=== PATIENT | male | born 1945 | race Caucasian/White ===

== ENCOUNTER 2022-05-02 15:29 | Outpatient (CLI) | payer OTHER, SELFPAY ==
--- NOTE | 2022-05-02 15:35 | CRLHL7_ITS ---
For Patients: As a result of the Century Cures Act, medical imaging exams and procedure reports are released immediately into your electronic medical record. You may view this report before your referring provider. If you have questions, please contact your health care provider. INDICATION: Lung cancer screening. History of smoking. High risk patient with greater than 40 pack-year smoking history. Smoking cessation in 2018. TECHNIQUE: Low-dose lung cancer screening non-contrast CT chest. Dose reduction techniques were used. COMPARISON: February 04, 2020. November 01, 2019. FINDINGS: NODULES: Stable calcified subpleural granuloma left upper lobe of the lung image 37 series. 2 no new pulmonary nodules. LUNGS AND PLEURA: Marked interval improvement/near complete resolution of the peripheral reticular and ground-glass opacities described on the prior CT February 04, 2020 which were likely postinfectious or postinflammatory. Minimal residual subpleural opacities lateral right upper lobe of the lung and right lung base. MEDIASTINUM: Vascular calcification and normal caliber thoracic aorta. Calcified left hilar lymph nodes compatible with granulomatous process. CORONARY ARTERY CALCIFICATION: Present. Possible coronary artery stent as well in the left anterior descending artery. Please correlate clinically. LIMITED UPPER ABDOMEN: Small esophageal hiatal hernia. No splenomegaly. Normal adrenal glands. Subtle cholelithiasis. MUSCULOSKELETAL: Old partial compression fracture L1. IMPRESSION: Negative for lung cancer screening purposes. LUNG-RADS CATEGORY: 2: Benign. (<1% risk of malignancy) -Sparkle fissural nodule(s): <10 mm -Solid nodule(s): <6 mm on baseline screening; or new nodule <4 mm -Subsolid nodule(s): <6 mm on baseline screening -Ground glass nodule(s): <30 mm; or greater than or equal to 30 mm and unchanged or slowly growing -Category 3 or 4 nodules that are unchanged for greater than or equal to 3 months RADIOLOGIST RECOMMENDATION: Continue annual screening with low-dose CT chest in 12 months. Please note that all CT scans at this facility use dose modulation, iterative reconstruction, and/or weight-based dosing when appropriate to reduce radiation dose to as low as reasonably achievable. Dictated by Bib Bynum MD @ 05/02/2022 9:34:55 PM (Electronically Signed)
== END 2022-05-02 15:30 | disposition home or self-care (01) ==
PROVIDERS: PCP Internal Medicine
DX: Z12.2 Encounter for screening for malignant neoplasm of respiratory organs (principal); Z87.891 Personal history of nicotine dependence
CPT/HCPCS: 71271

== ENCOUNTER 2023-12-20 02:52 | Emergency (ER) | payer OTHER, SELFPAY ==
[2023-12-20 02:55] VITALS: BP 176/86; PULSE 67; RESP 20; TEMP 36.2; O2SAT 93; BMI 29.8
--- NOTE | 2023-12-20 03:03 | ED.GENADULT ---
HPI - General Adult General Chief complaint: Abdominal Pain Stated complaint: Upper right abdominal pain Time Seen by Provider: 12/20/23 03:03 History of Present Illness HPI narrative: Upper right abd pain, woke pt up from sleep. No chest pain, shortness of breath - hx of COPD. No reported falls or other trauma . 78-year-old man presenting to the emergency department with concern of upper right-sided abdominal pain that woke him from sleep. No chest pain. No fever. Not radiating to his back. Sense of palpitations. Was feeling in usual state of health yesterday. 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 Had appendectomy. No dysuria or hematuria noted. Related Data Home Medications ?Medication ?Instructions ?Recorded ?Confirmed albuterol sulfate 90 mcg/actuation 2 puff inhalation Q6H PRN 01/03/22 01/03/22 aerosol inhaler ibuprofen 200 mg tablet (Advil) 200 mg PO Q6H PRN 01/03/22 01/03/22 tiotropium bromide 2.5 2 puff inhalation QDAY 01/03/22 01/03/22 mcg/actuation mist for inhalation (Spiriva Respimat) albuterol sulfate 2.5 mg/3 mL 2.5 mg inhalation Q6H 01/08/22 (0.083 %) solution for nebulization aspirin 81 mg tablet,delayed 81 mg PO QDAY 01/08/22 release fluticasone propion-salmeterol inhalation 01/08/22 [Wixela Inhub] sennosides 8.6 mg capsule (senna) 8.6 mg PO QDAY PRN 01/08/22 tamsulosin 0.4 mg capsule 0.4 mg PO QDAY 01/08/22 Previous Rx's ?Medication ?Instructions ?Recorded prednisone 20 mg tablet 20 mg PO BID Back Pain #10 tabs 01/03/22 Allergies Allergy/AdvReac Type Severity Reaction Status Date / Time No Known Drug Allergies Allergy Verified 01/03/22 14:32 Review of Systems Status of ROS: Reports: 6 or more systems reviewed and unremarkable except as noted in History and below [facility] Medical History Back pain ?M54.9 - Dorsalgia, unspecified (ICD-10) Exam Narrative: Exam Narrative: Pleasant. Lying calmly semi recumbent in bed. Hard of hearing. Moving all extremities without difficulty. Is well-perfused. No lower extremity edema noted. Lungs with mildly diminished breath sounds. Heart in regular rate rhythm. Abdomen is full, tympanitic. Quite tender along the right side of the abdomen. I think most so in the right upper abdomen but all the way down to the right lower quadrant as well. Flinches intensely, guards, with pain to palpation. Const: Vital Signs, click to edit/add: Vital Signs - 24 hr 12/20/23 02:55 12/20/23 03:29 12/20/23 03:30 Temperature 97.2 F L Pulse Rate 61 61 Pulse Rate [Left P ulse Oximeter] 67 Respiratory Rate 20 Blood Pressure Blood Pressure [Ri ght Upper Arm] 176/86 H Pulse Oximetry 93 91 89 Oxygen Delivery Me thod Room Air 12/20/23 03:32 Temperature Pulse Rate 61 Pulse Rate [Left P ulse Oximeter] Respiratory Rate Blood Pressure 180/88 H Blood Pressure [Ri ght Upper Arm] Pulse Oximetry 89 Oxygen Delivery Me thod Documenting provider has reviewed patient's vital signs: yes Course Vital Signs Vital signs: Initial Vital Signs Temperature 97.2 F L 12/20/23 02:55 Temperature Source Temporal Artery Scan 12/20/23 02:55 Pulse Rate 67 12/20/23 02:55 Pulse Rhythm Regular 12/20/23 02:55 Respiratory Rate 20 12/20/23 02:55 Blood Pressure 176/86 H 12/20/23 02:55 Blood Pressure Mean 116 H 12/20/23 02:55 Blood Pressure Position Sitting 12/20/23 02:55 Pulse Oximetry 93 12/20/23 02:55 Oxygen Delivery Method Room Air 12/20/23 02:55 Vital Signs Temperature 97.2 F L 12/20/23 02:55 Pulse Rate 67 12/20/23 02:55 Respiratory Rate 20 12/20/23 02:55 Blood Pressure 176/86 H 12/20/23 02:55 Pulse Oximetry 93 12/20/23 02:55 Oxygen Delivery Method Room Air 12/20/23 02:55 Temperature 97.2 F L 12/20/23 02:55 Pulse Rate 61 12/20/23 03:32 Respiratory Rate 20 12/20/23 02:55 Blood Pressure 180/88 H 12/20/23 03:32 Pulse Oximetry 89 12/20/23 03:32 Oxygen Delivery Method Room Air 12/20/23 02:55 Medications Administered Medications: Discontinued Medications Generic Name Dose Route Start Last Admin Trade Name Bradley PRN Reason Stop Dose Admin Sodium Chloride 500 mls @ 500 mls/hr 12/20/23 04:32 12/20/23 06:29 0.9 % Sodium Chloride 500 Ml IV 12/20/23 05:31 Infused .Q1H ONE Infusion Ketorolac Tromethamine 30 mg 12/20/23 04:35 12/20/23 04:48 Ketorolac 30 Mg/Ml Inj IVP 12/20/23 04:36 30 mg ONCE ONE Administration Morphine Sulfate 4 mg 12/20/23 03:24 12/20/23 03:31 Morphine 4 Mg/Ml Inj IVP 12/20/23 03:25 4 mg ONCE ONE Administration Medical Decision Making MDM Narrative Medical decision making narrative: Differential includes diverticulitis, perforated viscous otherwise, dissection, gallbladder disease, hepatitis otherwise, constipation, hematoma, ureteral stone and colic. Initiating IV. Checking labs. Had he not had his appendix out I would consider immediate CT imaging. At this point would wait for direction somewhat from labs but would like to do point of care ultrasound as well just to evaluate gallbladder. I did place point of care ultrasound Mr. Loo. Appears to have some sludge in his gallbladder. While he is very tender and would suggest positive Cooper's, I do not see pericholecystic inflammatory changes nor wall thickening per se. I did review findings of limited right upper abdominal ultrasound with custodial services manager. Noting small cholelithiasis. Still with a great deal of tenderness on the abdomen right upper right lower on reexamination. Sent for abdomen pelvis contrasted CT. Did review these images personally. Unusually enhancing area of the prostate. Particularly distended urinary bladder. Placing Coles did collect more than 600 mL out. This was a coude. Probably initially with 800 mL urine out. He does now recall urinary retention sometime in the past with catheter placed. History of TURP. Radiology over-read as below TECHNIQUE: CT examination of the abdomen and pelvis was performed following the uneventful intravenous administration of 82 cc of Isovue 370. Thin section axial images were obtained from the lung bases through the pubic symphysis. Oral contrast was not administered. Please note that all CT scans at this facility use dose modulation, iterative reconstruction, and/or weight-based dosing when appropriate to reduce radiation dose to as low as reasonably achievable. FINDINGS: LUNG BASES: Reticular opacities at the lung bases likely due to interstitial fibrosis. This represents a change since December 16, 2019.Follow up evaluation is recommended in the nonacute care setting. The heart size is normal the lung bases. There is a moderate-sized hiatal hernia. LIVER/BILIARY SYSTEM:Hepatic steatosis. Simple cyst. There is cholelithiasis with most of the stones in the region of the gallbladder neck. No wall thickening, pericholecystic fluid or biliary ductal dilation noted.No visible choledocholithiasis ADRENALS: Normal KIDNEYS, URETERS and BLADDER:Kidneys are normal in size. No focal mass. Left extrarenal pelvis. The prostate is enlarged. There has been an apparent TURP. There is enhancing peripheral nodularity of the superior left aspect of the prostate. Follow-up evaluation of the prostate recommended at a clinically appropriate time. The bladder is distended SPLEEN:Normal appearance. PANCREAS: Appears normal. RETROPERITONEUM and MESENTERY: There is no mass, adenopathy or aortic aneurysm. Dense atherosclerotic vascular calcification GASTROINTESTINAL SYSTEM: There is no evidence of diverticulitis, colitis, mechanical obstruction, or appendicitis. The small bowel as visualized appears normal.Fecal retention and scattered diverticulosis. PELVIS: Abnormal prostate as mentioned above. OSSEOUS STRUCTURES and ABDOMINAL WALL: Postsurgical changes of the spine and the pelvis. Degenerative changes. Chronic wedging of a lumbar vertebral body.No significant abdominal wall abnormality. Incidental left hydrocele. OTHER: No free fluid or free air. IMPRESSION: 1. Cholelithiasis without CT evidence of acute cholecystitis or common duct obstruction. 2. Hepatic steatosis. 3. Bibasilar lung findings likely indicating a fibrosing interstitial lung disease. This represents a change since the prior study. Follow-up recommended in the nonacute setting. 4. Enlarged prostate with a peripheral enhancing area in the superolateral prostate for which follow-up evaluation is recommended in the nonacute care setting. 5. Other nonacute appearing findings as above Will discuss catheter management. Discussed findings in CT imaging and ultrasound imaging. And with cholelithiasis as well as this unusual enhancement in the prostate that will require some follow-up. See patient discharge plan for further discussion Medical Records Medical records reviewed: Yes I reviewed the patient's medical records Lab Data Lab results reviewed: Yes I reviewed the patient's lab results Labs: Lab Results 12/20/23 12/20/23 Range/Units 03:15 Unknown WBC 7.06 (4.50-11.00) K/uL RBC 4.64 (4.30-5.90) m/uL Hgb 15.4 (13.5-17.5) gm/dL Hct 44.9 (37.0-53.0) % MCV 97 (80-100) fL MCH 33 (26-34) pg MCHC 34 (32-36) gm/dL RDW Coeff of Zena 11.4 L (11.5-15.5) % Plt Count 181 (140-440) K/uL Neut % (Auto) 72.6 H (42.0-72.0) % Lymph % (Auto) 13.7 L (20-44) % Clark % (Auto) 10.8 (0.0-11.0) % Eos % (Auto) 2.3 (0.0-7.0) % Baso % (Auto) 0.3 (0.0-3.0) % Neut # (Auto) 5.10 (1.7-7.0) K/uL Lymph # (Auto) 1.00 (0.90-2.90) K/uL Clark # (Auto) 0.80 (0.00-0.90) K/UL Eos # (Auto) 0.16 (0.00-0.50) K/uL Baso # (Auto) 0.02 (0.00-0.30) K/uL Abs Immat Gran (auto) 0.02 (0.00-0.30) K/uL Imm/Tot Granulo (auto) 0.3 % D-Dimer Quant (PE/DVT) 0.32 (0.00-0.50) ug/ml Sodium 132 L (135-149) mmol/L Potassium 4.4 (3.6-5.1) mmol/L Chloride 97 (96-114) mmol/L Carbon Dioxide 29 (20-32) mmol/L Anion Gap 6 L (7-15) mEq/L BUN 16 (7-30) mg/dL Creatinine 1.0 (0.5-1.5) mg/dL Estimated Creat Clear 49.79 Estimated GFR 78 ml/min Glucose 123 H (60-115) mg/dL Calcium 9.6 (8.4-10.6) mg/dL Total Bilirubin 0.8 (0.1-1.5) mg/dL Direct Bilirubin 0.1 (0.0-0.5) mg/dL AST 38 H (12-35) U/L ALT 36 (4-50) U/L Alkaline Phosphatase 65 (40-150) U/L C-Reactive Protein < 0.5 L (0.5-1.0) mg/dL Total Protein 7.2 (6.0-8.3) g/dL Albumin 4.5 (3.3-5.0) g/dL Urine Color Yellow (Yellow) Urine Appearance Clear (Clear) Urine pH 7.5 (5.0-8.5) Ur Specific [place] 1.020 (1.000-1.030) Urine Protein Negative (Negative) Urine Glucose (UA) Negative (Negative) Urine Ketones Negative (Negative) Urine Blood Negative (Negative) Urine Nitrite Negative (Negative) Urine Bilirubin Negative (Negative) Urine Urobilinogen 0.2 (0.2-1.0) Ur Leukocyte Esterase Trace A (Negative) Urine RBC 0-2 (0-2) Urine WBC 0-2 (0-5) Ur Squamous Epith Cells Few (None-Few) Amorphous Sediment Many A (None) Urine Bacteria Few A (None) Fine Granular Casts Moderate A (None) Discharge Plan Discharge Clinical Impression: Acute urinary retention, Abdominal pain, Cholelithiasis, Pulmonary fibrosis Patient Disposition: Home w/ Parent or Adult Condition: Improved Additional Instructions: A pleasure to meet you. I would keep this Coles in until follow-up in clinic. Please call 1st thing Friday morning for an appointment on Friday or Friday. There are some changes in your prostate that need follow-up. Please discuss in your primary care clinic. Be sure that your treatment for your lungs is being optimized as well. Fibrosis is evident on CT. Prescriptions: No Action Spiriva Respimat 2.5 mcg/actuation mist 2 puff inhalation QDAY albuterol sulfate 90 mcg/actuation HFA aerosol inhaler 2 puff inhalation Q6H PRN ibuprofen [Advil] 200 mg tablet 200 mg PO Q6H PRN prednisone 20 mg tablet 20 mg PO BID Qty: 10 0RF tamsulosin 0.4 mg capsule 0.4 mg PO QDAY senna 8.6 mg capsule 8.6 mg PO QDAY PRN albuterol sulfate 2.5 mg /3 mL (0.083 %) solution for nebulization 2.5 mg inhalation Q6H aspirin 81 mg tablet,delayed release (DR/EC) 81 mg PO QDAY fluticasone propion-salmeterol [Wixela Inhub] inhalation Follow Up/Referrals: Orlando Ramos MD [Staff Physician] - Stand Alone Forms: [employer] Twitter Dashboard Info Instructions
[2023-12-20 03:20] LABS: Basophils Absolute Auto 0.02 K/uL (0.00-0.30); Basophils Percent Auto 0.3 % (0.0-3.0); Eosinophils Absolute Auto 0.16 K/uL (0.00-0.50); Eosinophils Percent Auto 2.3 % (0.0-7.0); Hematocrit 44.9 % (37.0-53.0); Hemoglobin* 15.4 gm/dL (13.5-17.5); Immature Granulocytes Abs Auto 0.02 K/uL (0.00-0.30); Immature Granulocytes Pct Auto 0.3 %; Lymphocytes Percent Auto 13.7 % (20-44); Mean Corpuscular HGB Conc 34 gm/dL (32-36); Mean Corpuscular Hemoglobin 33 pg (26-34); Mean Corpuscular Volume 97 fL (80-100); Monocytes Percent Auto 10.8 % (0.0-11.0); Neutrophils Percent Auto 72.6 % (42.0-72.0); Platelet Count* 181 K/uL (140-440); RDW Coefficient of Variation % 11.4 % (11.5-15.5); Red Blood Count 4.64 m/uL (4.30-5.90); White Blood Count* 7.06 K/uL (4.50-11.00)
[2023-12-20 03:25] LABS: Slide Review Reflex No
[2023-12-20 03:29] VITALS: PULSE 61; O2SAT 91
[2023-12-20 03:30] VITALS: PULSE 61; O2SAT 89
[2023-12-20] MEDS: MORPHINE 4 MG/ML INJ IVP (03:31)
[2023-12-20 03:32] VITALS: BP 180/88; PULSE 61; O2SAT 89
[2023-12-20 03:37] LABS: Chloride* 97 mmol/L (96-114); Sodium* 132 mmol/L (135-149)
[2023-12-20 03:38] LABS: Albumin* 4.5 g/dL (3.3-5.0); Potassium* 4.4 mmol/L (3.6-5.1)
[2023-12-20 03:41] LABS: Alanine Aminotransferase* 36 U/L (4-50); Alkaline Phosphatase* 65 U/L (40-150); Anion Gap 6 mEq/L (7-15); Aspartate Amino Transferase* 38 U/L (12-35); Bilirubin Direct* 0.1 mg/dL (0.0-0.5); Bilirubin Total* 0.8 mg/dL (0.1-1.5); Blood Urea Nitrogen* 16 mg/dL (7-30); Carbon Dioxide* 29 mmol/L (20-32); Est. Creatinine Clearance* 49.79; Estimated Glomerular Filt Rate 78 ml/min; Glucose* 123 mg/dL (60-115); Total Protein* 7.2 g/dL (6.0-8.3)
[2023-12-20 03:42] LABS: Calcium* 9.6 mg/dL (8.4-10.6); D Dimer Quantitative* 0.32 ug/ml (0.00-0.50)
[2023-12-20 03:44] LABS: C Reactive Protein* < 0.5 mg/dL (0.5-1.0)
--- OUTSIDE RECORDS SUMMARY | 2023-12-20 03:49 | XMS_ITS | Encounter Summary ---
Author Name [facility] [facility] [place] Address [address] [place] [address] Care Team Providers Care Staff Anesthetist Name Role Phone AMELIA VILLALPANDO Primary Care Provider Unavailabl e Insurance Providers: All historical and current Section Date Range: From patient's date of to the date document was created. This section includes the names of all active insurance providers for the patient. Insurance Provider Type of Coverage Plan Name Start of Policy Coverage End of Policy Coverage Group Number Member ID Insurance Provider's Telephone Number Policy Serrato's Name Patient's Relationship to Policy Serrato [employer] PLAN N MEDIC ARE SUPPL EMENT Mar 03, 2015 PLAN N [id number] [phone] RADHA SIMON PATIENT MEDICARE (WNR) MEDICARE (M) PART B Mar 03, 2015 PART B [id number] RADHA SIMON PATIENT MEDICARE (WNR) MEDICARE (M) PART A Jan 01, 2011 PART A [id number] [phone] RADHA SIMON PATIENT Selected Encounter This section includes the information on record at [place] for the Encounter. Date/Time Encounter Type Encounter Description Reason Provider Source Jun 12, 2023 07:58 AM Outpatient Encounter ADMIN PAT ACTIVTIES (MASNONCT) AMELIA VILLALPANDO Aki Encounter Template Text not used by [place] Plan of Treatment: Future Appointments (+ 6 months) and Future Tests (+/- 45 days) The Plan of Treatment section includes future care activities for the patient from all [place] [facility]. This section includes future appointments and future orders which are active, pending or scheduled. Future Appointments This section includes appointments that were scheduled to occur 6 months from the date of the Encounter, up to a maximum of 20 appointments. The data comes from all [facility]. Appointment Date/Time Appointment Type Appointme nt Facility Name Jun 25, 2023 11:30 AM [facility]BULATORY - [facility]ICINE [facility] Jun 25, 2023 01:15 PM [facility] - [facility]IC[facility] July 02, 2023 10:00 AM AMBULATORY [place] SURGERY [place] [facility] Sep 25, 2023 07:00 AM AMBULATORY - NONE [place] [facility] Oct 09, 2023 10:30 AM [facility]ORY - MEDICINE [facility] ([facility]) Oct 30, 2023 02:30 PM AMBULATORY - NONE [facility]) Nov 13, 2023 10:30 AM AMBULATORY - NONE [facility]) Active, Pending, and Scheduled Orders This section includes a listing of several types of active, pending, and scheduled orders, including clinic medications orders, diagnostic test orders, procedure orders and consult orders; where the start date of the order is 45 days before the date of the Encounter or 45 days after the date of theEncounter. The data comes from all [facility]. Test Date/Time Test Type Test Details Facility Name July 07, 2023 02:49 PM Consult Order COMM[facility]ITY [facility]ARE-DERMATOLOGY Cons Performance Specialist's Choice [facility] Radiology Reports: +/- 30 days of the encounter Radiology Reports For cases when an order for radiology services may have been completed prior to the date of the Encounter, the report list includes the Radiology Reports that were completed up to 30 days before dateof the Encounter. For cases when an order for radiology services may have been completed after the date of the Encounter, the report list also includes the Radiology Reports that were completed up to30 days after date of the Encounter. The data comes from all [facility]. Date/Time Radiology Report Provider Source Jun 11, 2023 12:14 PM LDCT LUNG CANCER S CREENING: SIMONANGELINEH [id number] -[id number] M Exm Date: JUN 11, 2023@12:14 Req Phys: AMELIA VILLALPANDO K Pat Loc: [facility] PULM CHART CHECK [facility] (Req' Img Loc: CT IMAGING Service: Unknown (Case [id number] COMPLETE) LDCT LUNG CANCER SCREENING (CT Detailed) CPT:26145 Reason for Study: LDCT for Lung Cancer Screening (INITIAL) Clinical History: [place] IS NOT under investigation for COVID-19 or is COVID-19 negative LDCT for Lung Cancer Screening (INITIAL) Please note that had LDCT @ [place] 05/02/22 Lung RADS: 2 BENIGN Responsible provider name and phone number to notify for critical findings if other than user placing the order and pager listed below: User placing orders pager: LAST 3: Collection DT Specimen Test Name Result Units Ref Range 10/22/2022 11:07 PLASMA CREATININE 0.9 mg/dL 0.7 - 1.2 10/11/2021 11:18 PLASMA CREATININE 0.9 mg/dL 0.7 - 1.2 10/08/2018 10:53 PLASMA!! CREATININE 0.9 mg/dL 0.7 - 1.2 10/22/2022 11:07 PLASMA .CREAT EGFR(CKD-E 89 Ref: >=60 10/11/2021 11:18 PLASMA .CREAT EGFR(CKD-E 89 Ref: >=60 !! Indicates COMMENTS AVAILABLE...Refer to Interim Lab Report. Allergies: Patient has answered NKA Report Status: Verified Date Reported: JUN 11, 2023 Date Verified: JUN 11, 2023 Fitness Services Manager E-Sig:/ES/EDDIE ROBB MD Report: EXAM: LDCT LUNG CANCER SCREENING COMPARISON: 05/02/2022 PROTOCOL: Screening protocol, low dose, non-contrast CT chest was performed in accordance with Lung-Rads 2022. Additional coronal and sagittal reconstructions. MIP reconstructions were reviewed. Secondary computer-aided detection post-processing used. DOSE PARAMETERS: DLP: 57.79, mGy.cm/CTDIvol Mean: 1.58, mGy INDEX NODULE: Location: Left Upper Lobe Series: 3 Image: 74 Density: Solid Solid diameter (average): 2 mm Other characteristics: None Change: No significant change in size from 05/02/2022 Comments: Multiple adjacent calcified pulmonary granulomas. OTHER NODULES: Additional small solid pulmonary nodules do not appear significantly changed from prior such as a 2 mm solid subpleural nodule in the left upper lobe on series 3 image 38 OTHER-INCIDENTAL FINDINGS: Mild pulmonary emphysema. Reticular fibrotic changes, mid basilar predominant greatest in the right lower lobe such as on series 3 image 167, these have not significantly progressed from 05/02/2022. Calcification in the right lobe of the thyroid on series 2 image 29, not significantly changed from prior examination. Calcified left hilar node. Coronary arterial calcifications and suspected stenting. Thoracic aortic and great vessel calcification. Small sliding-type hiatal hernia. Prominent mediastinal lymph nodes are not significantly changed from prior examination. Suspected chronic area of fat necrosis near the right anterior hemidiaphragm on series 2 image 369, this is not significantly changed from previous. Low-attenuation suspected hepatic cyst on series 2 image 494. Cholelithiasis. Vascular calcifications of the upper abdomen. Rounded partially rim calcified structure in the right abdomen on series 2 image 603 measuring 1 cm, this does not appear significantly changed from 05/02/2022. Mild bilateral gynecomastia. Compression deformities of the T5 and L1 vertebral bodies, not significantly changed from 05/02/2022. Degenerative changes of the spine. Small chronic subcutaneous calcification in the left posterior thoracic region on series 3 image 158. Impression: LUNG-RADS: 2: Benign RECOMMENDATION: One year follow-up low dose CT, if patient meets screening criteria. SIGNIFICANT INCIDENTAL FINDING (S CODE): S OTHER SIGNIFICANT FINDINGS AND RECOMMENDATIONS: Combined pulmonary fibrosis and emphysema, not significantly progressed from 05/02/2022. 1 cm rounded structure in the right abdominal mesentery with peripheral calcification, potentially a small arterial aneurysm, this is similar to 05/02/2022, further assessment with abdominal CTA is recommended. Primary Interpreting Staff: EDDIE ROBB MD, RADIOLOGIST (Fitness Services Manager) /EDDIE WOODARD [facility] Pathology Reports: +/- 30 days of the encounter Pathology Reports For cases when an order for pathology services may have been completed prior to the date of the Encounter, the report list includes the Pathology Reports that were completed up to 30 days before dateof the Encounter. For cases when an order for pathology services may have been completed after the date of the Encounter, the report list also includes the Pathology Reports that were completed up to30 days after date of the Encounter. The data comes from all [place] treatment facilities. Date/Time Pathology Report Provider Source July 07, 2023 10:13 AM LR SURGICAL PATHOL OGY REPORT: LOCAL TITLE: LR SURGICAL PATHOLOGY REPORT STANDARD TITLE: PATHOLOGY REPORT DATE OF NOTE: JULY 07, 2023@10:13:56 ENTRY DATE: JULY 07, 2023@10:13:56 AUTHOR: KAYCEE KARIMI EXP COSIGNER: URGENCY: STATUS: COMPLETED $APHDR Reporting Lab: [facility] [CLIA# [id number]] [place] [address] - - - - - - - - - - - - - - - - - - - - - - - - - - - - - - - - - - - - - - - - MEDICAL RECORD SURGICAL PATHOLOGY - - - - - - - - - - - - - - - - - - - - - - - - - - - - - - - - - - - - - - - - PATHOLOGY REPORT Accession No. [id number] - - - - - - - - - - - - - - - - - - - - - - - - - - - - - - - - - - - - - - - - $TEXT Submitted by: KENTON MIJARES Date obtained: July 02, 2023 - - - - - - - - - - - - - - - - - - - - - - - - - - - - - - - - - - - - - - - - Specimen (Received July 02, 2023 11:45): RT.PARIETAL SCALP SHAVE - - - - - - - - - - - - - - - - - - - - - - - - - - - - - - - - - - - - - - - - BRIEF CLINICAL HISTORY: Procedure: shave biopsy - - - - - - - - - - - - - - - - - - - - - - - - - - - - - - - - - - - - - - - - PREOPERATIVE DIAGNOSIS: R/O nBCC - - - - - - - - - - - - - - - - - - - - - - - - - - - - - - - - - - - - - - - - OPERATIVE FINDINGS: - - - - - - - - - - - - - - - - - - - - - - - - - - - - - - - - - - - - - - - - POSTOPERATIVE DIAGNOSIS: Surgeon/physician: KENTON MIJARES =-=-=-=-=-=-=-=-=-=-=-=-=-=-=- =-=-=-=-=-=-=-=-=-=-=-=-=-=-=- =-=-=-=-=-=-=-=-=-= - - - - - - - - - - - - - - - - - - - - - - - - - - - - - - - - - - - - - - - - PATHOLOGY REPORT Accession No. [id number] - - - - - - - - - - - - - - - - - - - - - - - - - - - - - - - - - - - - - - - - GROSS DESCRIPTION: The requisition form and specimen(s) identification is confirmed. The specimen is received in formalin labeled as right parietal scalp and consists of a shave biopsy of a pearlescent levy nodule measuring 1.4 x 1.1 x 0.3 cm. The specimen is inked. CE. (D)[facility] [place] MICROSCOPIC DESCRIPTION: Microscopic examination performed. 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 in the shave biopsy /es/ KAYCEE KARIMI MD STAFF PATHOLOGIST, PATHOLOGY & LABORATORY [facility] [place] Signed July 07, 2023@10:13 Performing Laboratory: Surgical Pathology Report Performed By: [facility] [CLIA# [id number]] [place] [address] $FTR - - - - - - - - - - - - - - - - - - - - - - - - - - - - - - - - - - - - - - - - (End of report) KAYCEE KARIMI MD dla Date July 07, 2023 - - - - - - - - - - - - - - - - - - - - - - - - - - - - - - - - - - - - - - - - RADHA SIMON STANDARD FORM 515 ID:[id number] SEX:M :1945 AGE: 78 LOC:1068 PCP: Amelia Villalpando /alma/ KAYCEE KARIMI MD STAFF PATHOLOGIST, PATHOLOGY & LABORATORY [facility] [place] Signed: 07/07/2023 10:13 KAYCEE KARIMI [facility] Encounter Notes: All associated encounter notes This section contains the clinical notes associated to the Encounter. Date/Time Encounter Note(s) Provider Source Jun 12, 2023 08:06 AM LETTERS: LOCAL TITLE: FOLLOW UP RESULTS LETTER STANDARD TITLE: LETTERS DATE OF NOTE: JUN 12, 2023@08:06 ENTRY DATE: JUN 12, 2023@08:06:09 AUTHOR: PHILIP CAMERON EXP COSIGNER: URGENCY: STATUS: COMPLETED [facility] [address] [place] [address] Jun RADHA SIMON [address] [place] [address] [place] [address] Dear [place]: Your recent chest imaging on Jun showed: no lung nodules that require further follow up at this time. You may now return to the routine lung cancer screening program. If you still meet criteria for screening, your PCP will let you know when it is time to be screened again. This is usually about a year from your last screening chest CT. Your scan contained additional findings NOT related to lung nodules. Please discuss with your PCP, who has been notified of these results. Your primary care provider can be reached by calling [phone] or [phone]. If you are scheduled for a scan in the future and you have symptoms of a chest cold at that time, please call number on appointment letter to reschedule for four weeks after symptoms improve. If you have any further questions or problems, please contact Lung Cancer Screening staff at [phone]. PHILIP CAMERON vice president fixed income PHILIP CAMERON [facility] Jun 12, 2023 08:05 AM ADDENDUM: LOCAL TITLE: Addendum STANDARD TITLE: ADDENDUM DATE OF NOTE: JUN 12, 2023@08:05:03 ENTRY DATE: JUN 12, 2023@08:05:04 AUTHOR: PHILIP CAMERON EXP COSIGNER: URGENCY: STATUS: COMPLETED CT image related to nodule tracking or lung cancer screening was done on Jun Patient has been informed about findings related to lung nodules/lung cancer screening and/or pulmonary lymphadenopathy. PCP ALERT Pulmonary is notifying you as Primary Care Provider (PCP) of incidental findings unrelated to lung nodules or lung cancer screening. Per agreement with General Internal Medicine, PCP is responsible for following up incidental findings as needed. Incidental findings include (but not limited to); inflammatory/infectious LUNG conditions, pleural effusions, aneurysms, and other non-pulmonary findings. Patient has NOT been informed of the findings that are unrelated to the lung nodules or lung cancer screening. We defer to the PCP to inform the patient as indicated. Provider alert - Please see significant incidental findings and recommendation Impression: LUNG-RADS: 2: Benign RECOMMENDATION: One year follow-up low dose CT, if patient meets screening criteria. SIGNIFICANT INCIDENTAL FINDING (S CODE): S OTHER SIGNIFICANT FINDINGS AND RECOMMENDATIONS: Combined pulmonary fibrosis and emphysema, not significantly progressed from 05/02/2022. 1 cm rounded structure in the right abdominal mesentery with peripheral calcification, potentially a small arterial aneurysm, this is similar to 05/02/2022, further assessment with abdominal CTA is recommended. /es/ PHILIP CAMERON RN Case Manager Signed: 06/12/2023 08:05 Receipt Acknowledged By: 06/12/2023 14:09 /es/ AMELIA VILLALPANDO MD PHYSICIAN --- Original Document --- 06/12/23 PULMONARY LUNG CANCER SCREENING: NO LUNG NODULES or TRACKING OF NODULE NOT INDICATED per guidelines (e.g., clearly benign/some small nodules). Date of image: Date: June 11, 2023 LDCT Scan Results: Most recent LDCT scan shows a nodule for which tracking is not indicated per guidelines or radiology report. The following incidental findings were noted: Suggestive of lung infection, inflammation, or interstitial process. Comment: Combined pulmonary fibrosis and emphysema, not significantly progressed from 05/02/2022. Other: 1 cm rounded structure in the right abdominal mesentery with peripheral calcification, potentially a small arterial aneurysm, this is similar to 05/02/2022, further assessment with abdominal CTA is recommended. I am notifying the Primary Care Provider for information, and for follow-up of incidental findings, if indicated. Plan: Continue routine annual lung cancer screening. Patient Notification of results: Results letter sent to patient. Communicated to Primary Care Provider. /jarek CAMERON RN Case Manager Signed: 06/12/2023 08:04 PHILIP CAMERON [facility] Jun 12, 2023 07:59 AM PULMONARY NOTE: LOCAL TITLE: PULMONARY LUNG CANCER SCREENING STANDARD TITLE: PULMONARY NOTE DATE OF NOTE: JUN 12, 2023@07:59 ENTRY DATE: JUN 12, 2023@07:59:19 AUTHOR: PHILIP CAMERON EXP COSIGNER: URGENCY: STATUS: COMPLETED PULMONARY LUNG CANCER SCREENING Has ADDENDA NO LUNG NODULES or TRACKING OF NODULE NOT INDICATED per guidelines (e.g., clearly benign/some small nodules). Date of image: Date: June 11, 2023 LDCT Scan Results: Most recent LDCT scan shows a nodule for which tracking is not indicated per guidelines or radiology report. The following incidental findings were noted: Suggestive of lung infection, inflammation, or interstitial process. Comment: Combined pulmonary fibrosis and emphysema, not significantly progressed from 05/02/2022. Other: 1 cm rounded structure in the right abdominal mesentery with peripheral calcification, potentially a small arterial aneurysm, this is similar to 05/02/2022, further assessment with abdominal CTA is recommended. I am notifying the Primary Care Provider for information, and for follow-up of incidental findings, if indicated. Plan: Continue routine annual lung cancer screening. Patient Notification of results: Results letter sent to patient. Communicated to Primary Care Provider. /alma/ PHILIP CAMERON RN Case Manager Signed: 06/12/2023 08:04 06/12/2023 ADDENDUM STATUS: COMPLETED CT image related to nodule tracking or lung cancer screening was done on Jun Patient has been informed about findings related to lung nodules/lung cancer screening and/or pulmonary lymphadenopathy. PCP ALERT Pulmonary is notifying you as Primary Care Provider (PCP) of incidental findings unrelated to lung nodules or lung cancer screening. Per agreement with General Internal Medicine, PCP is responsible for following up incidental findings as needed. Incidental findings include (but not limited to); inflammatory/infectious LUNG conditions, pleural effusions, aneurysms, and other non-pulmonary findings. Patient has NOT been informed of the findings that are unrelated to the lung nodules or lung cancer screening. We defer to the PCP to inform the patient as indicated. Provider alert - Please see significant incidental findings and recommendation Impression: LUNG-RADS: 2: Benign RECOMMENDATION: One year follow-up low dose CT, if patient meets screening criteria. SIGNIFICANT INCIDENTAL FINDING (S CODE): S OTHER SIGNIFICANT FINDINGS AND RECOMMENDATIONS: Combined pulmonary fibrosis and emphysema, not significantly progressed from 05/02/2022. 1 cm rounded structure in the right abdominal mesentery with peripheral calcification, potentially a small arterial aneurysm, this is similar to 05/02/2022, further assessment with abdominal CTA is recommended. /alma/ PHILIP CAMERON vice president fixed income Signed: 06/12/2023 08:05 Receipt Acknowledged By: * AWAITING SIGNATURE * AMELIA VILLALPANDO KATE S [facility]
--- OUTSIDE RECORDS SUMMARY | 2023-12-20 03:49 | XMS_ITS | Encounter Summary ---
Author Name [facility] [place] [facility] [place] [facility] [place] Address [address] [place] [address] Care Team Providers Care Warp Coiler Name Role Phone AMELIA VILLALPANDO Primary Care [...] SUPPL EMENT Mar 03, 2015 PLAN N [id number] [phone] RADHA SIMON PATIENT MEDICARE (WNR) MEDICARE (M) PART B Mar 03, 2015 PART B [id number] RADHA SIMON PATIENT MEDICARE (WNR) MEDICARE (M) PART A Jan 01, 2011 PART A [id number] RADHA SIMON PATIENT Selected Encounter This section includes the information on record at [place] for the Encounter. Date/Time Encounter Type Encounter Description Reason Provider Source July 02, 2023 10:00 AM OFFICE O/P EST MOD 30 MIN DERMATOLOGY ICD-10-CM D48.5 Neoplasm of uncertain behavior of skin SOUTOR,WILLIE A IHE Encounter Template Text not used by [facility] Assessments - Encounter Diagnoses This section includes the primary and secondary diagnoses documented for the Encounter. Date/Time Primary/Secondary Diagnosis Diagnosis Name Provider Source July 02, 2023 09:44 AM PRIMARY Neoplasm of uncertain behavior of skin KENTON MIJARES [facility] Plan of Treatment: Future Appointments (+ 6 months) and Future Tests (+/- 45 days) The Plan of Treatment section includes future care activities for the patient from all [place] treatmentfacilities. This section includes future appointments and future orders which are active, pending or scheduled. Future Appointments This section includes appointments that were scheduled to occur 6 months from the date of the Encounter, up to a maximum of 20 appointments. The data comes from all [facility]. Appointment Date/Time Appointment Type Appointme nt Facility Name Sep 25, 2023 07:00 AM AMBULATORY - NONE [place] [facility] Oct 09, 2023 10:30 AM AMBULATORY [...] of theEncounter. The data comes from all [facility]. Test Date/Time Test Type Test Details Facility Name July 07, 2023 02:49 PM Consult Order COMMUNITY CARE-DERMATOLOGY Cons [employer] Advisor's Choice [facility] Radiology Reports: +/- 30 days of the [...] the Encounter. The data comes from all [facility]. Date/Time Radiology Report Provider Source Jun 11, 2023 12:14 PM LDCT LUNG CANCER S CREENING: RADHA SIMON [id number] -1945 M Exm Date: JUN 11, 2023@12:14 Req Phys: CLARI VILLALPANDOAquiles Osman Loc: [facility] PULM CHART CHECK LCS (Req' Img Loc: CT IMAGING Service: Unknown (Case [id number] COMPLETE) LDCT LUNG CANCER SCREENING (CT Detailed) CPT:86862 Reason for Study: LDCT for Lung Cancer Screening (INITIAL) Clinical History: IS NOT under investigation for COVID-19 or is COVID-19 negative LDCT for Lung Cancer Screening (INITIAL) Please note that had LDCT @ [place] 05/02/22 Lung RADS: 2 BENIGN Responsible provider [...] 11, 2023 Date Verified: JUN 11, 2023 Distributor Of Directories E-Sig:/ES/EDDIE ROBB MD Report: EXAM: LDCT LUNG CANCER SCREENING COMPARISON: 05/02/2022 PROTOCOL: Screening protocol, low dose, non-contrast CT chest was performed in accordance with Lung-Rads 2021. Additional coronal and sagittal reconstructions. MIP reconstructions [...] Primary Interpreting Staff: EDDIE ROBB MD, RADIOLOGIST (Distributor Of Directories) /EDDIE WOODARD [facility] Pathology Reports: +/- 30 days of the [...] the Encounter. The data comes from all [place] treatment facilities. Date/Time Pathology Report Provider Source July 07, 2023 10:13 AM LR SURGICAL PATHOL OGY REPORT: LOCAL TITLE: LR SURGICAL PATHOLOGY REPORT STANDARD TITLE: PATHOLOGY REPORT DATE OF NOTE: JULY 07, 2023@10:13:56 ENTRY DATE: JULY 07, 2023@10:13:56 AUTHOR: KAYCEE KARIMI EXP COSIGNER: URGENCY: STATUS: COMPLETED $APHDR Reporting Lab: [facility] [CLIA# [id number]] [place] [address] - - - - - - - [...] 0.3 cm. The specimen is inked. CE. (D[facility]: Microscopic examination performed. 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 in the shave biopsy /es/ KAYCEE KARIMI MD STAFF PATHOLOGIST, PATHOLOGY & LABORATORY MED [facility] Signed July 07, 2023@10:13 Performing Laboratory: Surgical Pathology Report Performed By: [facility] [CLIA# [id number]] [place] [address] $FTR - - - - - - [...] - - RADHA SIMON STANDARD FORM 515 ID:[id number] SEX:M :1945 AGE: 78 LOC:1068 PCP: Amelia Villalpando /alma/ KAYCEE KARIMI MD STAFF PATHOLOGIST, PATHOLOGY & LABORATORY MED [facility] Signed: 07/07/2023 10:13 KAYCEE KARIMI [facility] Encounter Notes: All associated encounter notes This section contains the clinical notes associated to the Encounter. Date/Time Encounter Note(s) Provider Source July 02, 2023 09:52 AM DERMATOLOGY LIYAH Lindsey OUTPATIENT NOTE: LOCAL TITLE: DERMATOLOGY CLINIC NURSING NOTE STANDARD TITLE: DERMATOLOGY NURSING OUTPATIENT NOTE DATE OF NOTE: JULY 02, 2023@09:52 ENTRY DATE: JULY 02, 2023@09:52:54 AUTHOR: LOGAN GODWIN EXP COSIGNER: URGENCY: STATUS: COMPLETED Dermatology Clinic Nursing Note Post Procedure Nursing Note Patient denied allergy to lidocaine or epinephrine. Vaseline and a band-aid was applied to the biopsy site on the R Parietal Scalp This bandage should be kept clean and dry for 1 day. After 1 day the bandage can be removed and the biopsy site should be gently cleaned once per day with mild soap and water, pat dry, then covered with vaseline and a new bandage. Daily cleaning and dressing changes should be done until the skin is fully healed. No other products should be used on the biopsy site i.e., hydrogen peroxide, rubbing alcohol, skin oils, creams, prescriptions until the area is completely healed. Educational Screening: Barriers to Learning/Special Needs: No Barriers Identified Preferred Style of Learning: No preference stated Teaching Strategy: 1:1 Written/printed material Instruction: Patient/family/caregiver instructed in standard Post-Biopsy wound care Printed instruction sheet provided for home reference: Skin Biopsy Patient Instruction, Understanding: Patient/family/caregiver: Able to verbalize understanding. Follow up teaching: None needed /alma/ Logan Godwin LPN LPN, Outpatient Surgery [facility] Signed: 07/02/2023 09:55 Receipt Acknowledged By: 07/02/2023 11:27 /alma/ LOGAN STATON LPN [facility] July 02, 2023 09:23 AM DERMATOLOGY ATTEND ING NOTE: LOCAL TITLE: DERMATOLOGY CLINIC NOTE STANDARD TITLE: DERMATOLOGY ATTENDING NOTE DATE OF NOTE: JULY 02, 2023@09:23 ENTRY DATE: JULY 02, 2023@09:23:28 AUTHOR: KENTON MIJARES EXP COSIGNER: URGENCY: STATUS: COMPLETED Clinic note Dr. Urena saw and evaluated the patient with me, and agrees with the findings,assessment and plan as outlined. Clinic Note Dermatology Problem List: UBSE 07/02/2023 # NUB - R Parietal Scalp s/p shave bx 07/02/2023 # Hx of NMSC (per patient) SUBJECTIVE: RADHA SIMON is a 78 year old MALE who presents today for skin check and teledermatology follow up. - Patient notes that the spot on his scalp started about two weeks ago - Never bleeds and never is itchy but will get caught on his comb and it is bothersome. - Has notes that he has a history of N[facility] ([facility] of the [facility]) EXAM: pink papule at scalp with tortuous vasculature IMPRESSION BASED ON IMAGES AND INFORMATION REVIEWED: PROBLEM A: Diagnosis: Neoplasm uncertain behavior RECOMMENDATIONS FOR REFERRING PROVIDER: PROBLEM A: Other recommendations: refer to dermatology RECOMMENDED FOLLOW-UP: Consult to Dermatology clinic for follow up ZITA: Aug Cumulative time of review and management: 5 minutes or more # # # # # # # # # # # # # # # # # # # # # # # # # # # # # # # # # # # # Diagnosis: unable to diagnose with photos alone Treatment: to be determined in dermatology clinic Follow up: dermatology will call you in 2 weeks to schedule a visit Review of systems: CONST: Otherwise in baseline state of health. SKIN: As above in HPI, no additional skin concerns. OBJECTIVE: GEN: No acute distress. SKIN: UBSE (head/neck, trunk, arms, hands/fingernails) - R pariteal scalp with shiny dome shaped papule with arborizing vessels noted under dermoscopy - On the trunk and extremities, there are flesh-colored to light brown, waxy, stuck on papules and plaques. - On the trunk and extremities with accentuation in sun-exposed areas, there are light brown macules with uniform appearance. - On trunk and extremities, there are firm red papules ASSESSMENT & PLAN: # NUB - R Parietal Scalp s/p shave biopsy 07/02/2023 - SHAVE BIOPSY PROCEDURE NOTE: A time-out was taken prior to the procedure to verify correct patient, correct site and correct procedure. After verifying patient's identification and obtaining informed consent, including discussions of the risks of bleeding,infection, and scarring,the lesion was cleansed with an alcohol swab then injected with 1.0 cc of 1% lidocaine with epinephrine. A Caribou blade was used to shave the lesion. Specimen was labeled and sent to pathology in formalin. Aluminum chloride was applied for chemical cauterization. Petrolatum and bandaid were applied to the biopsy site. Post-biopsy wound care was discussed in detail. # History of NMSC. NERD. (unsure of the sites but per patient) - Sun protection, including daily SPF 30+, advised # Seborrheic keratoses, spaulding angiomas. Reassured of benign etiology. - No further intervention required RTC 14 months for UBSE. Advised sooner for any tender, painful, bleeding, rapidly changing, or otherwise concerning lesions. Total encounter time (including chart review, counseling, documentation, ordering of labs/meds): 30-39 min /alma/ KENTON MIJARES MD RESIDENT Signed: 07/02/2023 09:44 KENTON MIJARES [facility]
--- OUTSIDE RECORDS SUMMARY | 2023-12-20 03:49 | XMS_ITS | Encounter Summary ---
Author Name [facility] [place] [facility] [place] [facility] [place] Address [address] [place] [address] Care Team Providers Care Kerfer Machine Operator Name Role Phone AMELIA VILLALPANDO Primary Care [...] SUPPL EMENT Mar 03, 2015 PLAN N [id number] [phone] RADHA CALDERA PATIENT MEDICARE (WNR) MEDICARE (M) PART B Mar 03, 2015 PART B [id number] [phone] RADHA CALDERA PATIENT MEDICARE (WNR) MEDICARE (M) PART A Jan 01, 2011 PART A [id number] [phone] RADHA CALDERA PATIENT Selected Encounter This section includes the information on record at [place] for the Encounter. Date/Time Encounter Type Encounter Description Reason Provider Source Jun 25, 2023 01:15 PM UNLISTED SPEC DERM SVC/PX DERMATOLOGY ICD-10-CM D48.5 Neoplasm of uncertain behavior of skin [facility] Encounter Template Text not used by [place] Assessments - Encounter Diagnoses This section includes the primary and secondary diagnoses documented for the Encounter. Date/Time Primary/Secondary Diagnosis Diagnosis Name Provider Source Jun 25, 2023 02:02 PM PRIMARY Neoplasm of uncertain behavior of skin [facility] ([facility] Plan of Treatment: Future Appointments (+ 6 months) and Future Tests (+/- 45 days) The Plan of Treatment section includes future care activities for the patient from all [place] treatmentfacilities. This section includes future appointments and future orders which are active, pending or scheduled. Future Appointments This section includes appointments that were scheduled to occur 6 months from the date of the Encounter, up to a maximum of 20 appointments. The data comes from all [place] treatment facilities. Appointment Date/Time Appointment Type Appointme nt Facility Name July 02, 2023 10:00 AM [facility] Sep 25, 2023 07:00 AM [place]ORY - NONE [place] [facility] Oct 09, 2023 10:30 AM AMBULATORY - [...] of theEncounter. The data comes from all [place] treatment facilities. Test Date/Time Test Type Test Details Facility Name July 07, 2023 02:49 PM Consult Order COMMUNITY CARE-DERMATOLOGY Cons Senior [employer] Developer's Choice [facility] Vital Signs: All taken on the encounter date This section contains inpatient and outpatient Vital Signs collected on the date of the Encounter. Date/Time Temperature Pulse Blood Pressure Respiratory Rate SP02 Pain Height Weight Body Mass Index Source Jun 25, 2023 11:43 AM 126/74 [facility] ([facility]) Jun 25, 2023 11:36 AM 98.9 68 147/69 18 94 0 182.9 32 [facility] ([facility]) Social History: Smoking Status (Most current) and Tobacco Use (All prior to encounter date) This section includes the most current, and the historical, smoking and tobacco- related health factors from the [place] facility where the Encounter took place. Current Smoking Status This section includes the most current smoking, or tobacco-related health factor, from the [place] facility where the Encounter took place. Date/Time Current Smoking Status Comment Facil ity Oct 22, 2022 10:00 AM [facility]-TOBACCO FORMER USER [facility] ([facility]) Tobacco Use History This section includes a history of the smoking, or tobacco-related health factors, that were collected on or before the date of the Encounter. The data comes from the [place] facility where the Encounter took place. Date/Time Smoking Status/Tobacco Use Comment F acility Oct 22, 2022 10:00 AM VA-TOBACCO QUIT 5 TO < 15 YRS [facility] ([facility]) Oct 11, 2021 10:30 AM VA-TOBACCO FORMER USER [facility] ([facility]) Oct 11, 2021 10:30 AM VA-TOBACCO QUIT 5 TO < 15 YRS [facility] ([facility]) Oct 11, 2020 10:30 AM VA-TOBACCO FORMER USER [facility] ([facility]) Oct 11, 2020 10:30 AM VA-TOBACCO QUIT 5 TO < 15 YRS [facility] ([facility]) Sep 13, 2019 08:25 AM VA-TOBACCO FORMER USER [facility] ([facility]) Sep 13, 2019 08:25 AM VA-TOBACCO QUIT 1 TO < 5 YRS [facility] ([facility]) Oct 09, 2017 02:36 PM VA-TOBACCO FORMER USER [facility] ([facility]) Oct 09, 2017 02:36 PM VA-TOBACCO QUIT 5 TO < 15 YRS [facility] ([facility]) Oct 08, 2017 04:05 PM CURRENT TOBACCO USER [facility] ([facility]) Oct 02, 2016 01:35 PM FORMER TOBACCO USER 7Y OR GREATE R [facility] ([facility]) Sep 21, 2015 08:10 AM CURRENT TOBACCO USER [facility] ([facility]) Radiology Reports: +/- 30 days of the [...] the Encounter. The data comes from all [place] treatment facilities. Date/Time Radiology Report Provider Source Jun 11, 2023 12:14 PM LDCT LUNG CANCER S CREENING: RADHA CALDERA [id number] -1945 M Exm Date: JUN 11, 2023@12:14 Req Phys: AMELIA VILLALPANDO Loc: [facility] PULM CHART CHECK [facility] (Req' Img Loc: CT IMAGING Service: Unknown (Case [id number] COMPLETE) LDCT LUNG CANCER SCREENING (CT Detailed) CPT:36805 Reason for Study: LDCT for Lung Cancer Screening (INITIAL) Clinical History: [place] IS NOT under investigation for COVID-19 or is COVID-19 negative LDCT for Lung Cancer Screening (INITIAL) Please note that had LDCT @ [place] 05/02/22 Lung RADS: 2 BENIGN Responsible provider [...] 11, 2023 Date Verified: JUN 11, 2023 Buffing Wheel Inspector E-Sig:/ES/EDDIE ROBB MD Report: EXAM: LDCT LUNG CANCER SCREENING COMPARISON: 05/02/2022 PROTOCOL: Screening protocol, low dose, non-contrast CT chest was performed in accordance with Lung-Rads 2. Additional coronal and sagittal reconstructions. MIP reconstructions [...] Primary Interpreting Staff: EDDIE ROBB MD, RADIOLOGIST (Buffing Wheel Inspector) /EDDIE WOODARD [facility] Pathology Reports: +/- 30 days of the [...] the Encounter. The data comes from all [place] treatment facilities. Date/Time Pathology Report Provider Source July 07, 2023 10:13 AM LR SURGICAL PATHOL OGY REPORT: LOCAL TITLE: LR SURGICAL PATHOLOGY REPORT STANDARD TITLE: PATHOLOGY REPORT DATE OF NOTE: JULY 07, 2023@10:13:56 ENTRY DATE: JULY 07, 2023@10:13:56 AUTHOR: KAYCEE KARIMI EXP COSIGNER: URGENCY: STATUS: COMPLETED $APHDR Reporting Lab: [facility] [CLIA# [id number]] [place] [address] - - - - - - - [...] 0.3 cm. The specimen is inked. CE. (D[facility] DES[facility]: Microscopic examination performed. 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 in the shave biopsy /es/ KAYCEE KARIMI MD STAFF PATHOLOGIST, PATHOLOGY & LABORATORY MED [facility] Signed July 07, 2023@10:13 Performing Laboratory: Surgical Pathology Report Performed By: [facility] [CLIA# [id number]] [place] [address] $FTR - - - - - - [...] - - - - - - RADHA CALDERA STANDARD FORM 515 ID:[id number] SEX:M :1945 AGE: 78 LOC:1068 PCP: Amelia Villalpando /alma/ KAYCEE KARIMI MD STAFF PATHOLOGIST, PATHOLOGY & LABORATORY MED [facility] Signed: 07/07/2023 10:13 KAYCEE KARIMI [facility] Encounter Notes: All associated encounter notes This section contains the clinical notes associated to the Encounter. Date/Time Encounter Note(s) Provider Source Jun 26, 2023 08:40 AM TELEIMAGING NOTE: LOCAL TITLE: TELEDERMATOLOGY IMAGING REQUEST CONSULT STANDARD TITLE: TELEIMAGING NOTE DATE OF NOTE: JUN 26, 2023@08:40 ENTRY DATE: JUN 26, 2023@08:41:17 AUTHOR: HERB STERN MA EXP COSIGNER: URGENCY: STATUS: COMPLETED Teledermatology Consult Request The patient was educated regarding the Teledermatology process at this encounter. Patient DOES consent to have images taken, viewed, and interpreted using the Teledermatology process. This consult addresses: A new condition Images were acquired: In clinic HISTORY: Prior skin history: Yes see below Have you had a skin cancer before? Basal Cell Carcinoma (BCC) Family melanoma history: Sibling Taking new med/supplements: None reported Immunosuppression history: None reported Other significant history: None reported Chief Complaint: julia Caldera is a 78 year old male with history ofskin cancer that has 5-6 weeks of a scalp lesion that is getting larger. PROBLEM A LOCATION(S): Right posterior scalp DURATION: 5-6 weeks SYMPTOMS: No Symptoms CHANGES: Elevation TREATMENT: No BIOPSY: No Automobile Upholsterer's comments: /alma/ LIOR STERN LPN LPN Signed: 06/26/2023 08:47 HERB STERN ([facility])
--- OUTSIDE RECORDS SUMMARY | 2023-12-20 03:49 | XMS_ITS | Clinical Summary ---
Author Organization [employer] [facility] [employer] [facility] Address [place], [place] [address] Care Team Providers Care Guest Experience Specialist Name Role Phone Sobia Muhammad MD Unavailable + Sobia Muhammad MD Unavailable + Cain Garcia MD Primary Care Provider Allergies No known active allergies Medications Medication Sig Dispensed Refills Start Date End Date Status NebulizerIndicati ons:Other emphysema (HC) Nebulizer. Frequency of use: daily; Medication: Duoneb Length of need: 99 months 1 Device 01/20/2018 Active aspirin chewable 81 mg chewable tablet Take 1 tablet by mouth once daily with a meal. 30 tablet 1 09/28/2019 Active acetaminophen (TYLENOL EXTRA STRENGTH) 500 mg tabletIndications :pain Take 500 mg by mouth every 6 hours if needed. Max acetaminophen dose: 4000mg in 24 hrs. Indications: Pain Active magnesium 250 mg tab Take 250 mg by mouth once daily. Active multivitamin/iron /folic acid (CENTRUM COMPLETE ORAL) Take 1 capsule by mouth. Active cholecalciferol (VITAMIN D3) 1,000 unit capsule Take 1,000 Units by mouth once daily. Active albuterol HFA 90 mcg/actuation inhalerIndication s:COPD mixed type (HC) Inhale 2 Puffs by mouth every 4 hours if needed. 3 Inhaler 3 11/16/2019 Active Mucus Clearing Device deviIndications:C OPD mixed type (HC) As directed. Green high flow acapella device to facilitate mucous clearance in COPD. Twice daily with duoneb ALVINA: 99 1 Device 11/16/2019 Active tamsulosin (FLOMAX) 0.4 mg capsuleIndication s:Urinary retention Take 1 Capsule (0.4 mg) by mouth once daily after a meal. 90 Capsule 3 03/09/2021 Active fluticasone propion-salmetero L (Advair Diskus) 250-50 mcg/Dose diskus inhalerIndication s:Chronic obstructive pulmonary disease, unspecified COPD type (HC) Inhale 1 Puff by mouth 2 times daily. 3 Each 3 03/09/2021 Active tiotropium bromide (SPIRIVA RESPIMAT) 2.5 mcg/actuation mist for inhalationIndicat ions:Chronic obstructive pulmonary disease, unspecified COPD type (HC) Inhale 1 Puff by mouth once daily. 90 Each 3 03/09/2021 Active sennosides (Senna) 8.6 mg tabletIndications :Constipation, unspecified constipation type Take 2 Tablets (17.2 mg) by mouth 2 times daily. 360 Tablet 3 04/24/2021 Active albuterol-ipratro pium (DUONEB) (2.5-0.5 mg) in 3 mL NEBULIZATION solutionIndicatio ns:COPD mixed type (HC) Inhale 3 mL via a nebulizer every 6 hours if needed for Shortness of Breath 1st choice. 540 mL 3 05/03/2021 Active omeprazole 20 mg tabletIndications :Chronic GERD Take 1 Tablet (20 mg) by mouth once daily before a meal. 39 Tablet 10/31/2022 Active polyethylene glycol-electrolyt e (GOLYTELY) 236-22.74-6.74 -5.86 gram suspensionIndicat ions:Encounter for screening colonoscopy Drink 2 liters the day before colonoscopy and drink 2 liters 6 hours before colonoscopy appointment 4000 mL 01/11/2022 4 Discontinu ed(*Med complete/R egimen complete/L evel of care change) Active Problems Problem Noted Date Diagnosed Date Skin cancer 12/11/2022 Overview (06/03/2023): 12/06/22: left conchal bowl, nBCC: Mohs done 01/07/[address] Cerrato 1980s left chest, BCC, excised BPH without urinary obstruction 01/11/2022 Chronic constipation 01/11/2022 ASCVD (arteriosclerotic cardiovascular disease) 10/27/2019 PVD (peripheral vascular disease) 10/27/2019 Prostate cancer 12/04/2016 COPD (chronic obstructive pulmonary disease) 03/2014 Overview (11/14/2020): FEV1=64% predicted. Hyperinflation on cxr. Impaired fasting glucose 01/31/2014 Benign neoplasm of colon 08/22/2008 Overview (05/15/2022): Colonoscopy 08/2008 Large rectal polyp- surgery recommended-- colonoscopy in 1 year Colonoscopy 01/2010 polyps repeat in 2 years Colonoscopy 10/2011 multiple polyps repeat in 2 years Colonoscopy 11/2013 polyps repeat in 3 years Colonoscopy 08/2016 hyperplastic polyp repeat in 5 years Colonoscopy 05/2022 3-TA, repeat in 5 years, PEG 8L Resolved Problems Problem Noted Date Diagnosed Date Resolved Date Other emphysema 01/19/2015 11/14/2020 Chronic obstructive pulmonary disease 12/22/2014 01/19/2015 Tobacco use disorder 03/31/2007 013 Encounters Date Type Department Care Team Description 12/02/2023 3:20 PM CDT Office Visit [facility] [address] [place] [address] Cain Garcia MD Medicare ANNUAL (subsequent) Visit (78 year old) 12/02/2023 Travel from Last 3 Months Immunizations Name Administration Dates Next Due Influenza, IIV4 12/02/2019 Influenza, IIV4 (=>6mos) MDV 01/28/2022 Influenza, Inactivated AIIV4 (Age 65+ Years) Preserv Free 11/24/2019 Influenza, Injectable, Mdck, Quadrivalent, W/preservative 12/12/2020 Pneumococcal Conj 20-valent (Prevnar 20) 024 Pneumococcal Poly,23-Valent (Pneumovax) 01/30/20 11 Pneumococcal conj 13-Valent (Prevnar 13) 016 Td (Age >=7 Years) 06/02/2000 Tdap 10/11/2020,11/16/2009 Zoster (Shingrix-RZV, recombinant) 01/12/2021, Zoster (Zostavax-ZVL, live) 09/01/2015 Family History Medical History Relation Name Comments Cancer-prostate Brother 4 Cancer Brother 5 skin Cancer-prostate Father Other Mother alzheimers Cancer-colon Neg. 1 Diabetes Neg. 2 Cancer-breast Sister 8 Cancer Sister 9 pancreas, lymph , at 74 Anesthesia Problem No Family History Relation Name Status Comments Brother 1 Alive Brother 2 Alive Brother 3 Alive Brother 4 Brother 5 Father Mother Neg. 1 Neg. 2 Sister 1 (Age 73) Sister 2 Alive Sister 3 Alive Sister 4 Alive Sister 5 Alive Sister 6 Alive Sister 7 Alive Sister 8 Sister 9 Social History Tobacco Use Types Packs/Day Years Used Date Smoking Tobacco: Former Cigarettes 0.5 40.9 1 973 - 01/24/2013 Smokeless Tobacco: Never Tobacco Cessation:Counseling Given: No Alcohol Use Standard Drinks/Week Comments No 0 (1 standard drink = 0.6 oz pur e alcohol) PHQ-2 Answer Date Recorded PHQ-2 TOTAL SCORE 0 12/02/2023 Social Connections Answer Date Recorded Frequency of Communication with Friends and Fami ly 0 12/02/2023 Financial Resource Strain Answer Date R ecorded Difficulty of Paying Living Expenses 3 12/02/2023 Difficulty of Paying Living Expenses Not on file 12/02/2023 Food Insecurity Answer Date Recorded Worried About Running Out of Food in the Last Ye ar 1 12/02/2023 Transportation Needs Answer Date Record ed Lack of Transportation (Medical) 1 12/02/2023 Housing Stability Answer Date Recorded Unable to Pay for Housing in the Last Year 1 12/02/2023 Sex and Gender Information Value Date Recorded Sex Assigned at Not on file Gender Identity Not on file Sexual Orientation Not on file Obstetrics History Last Filed Vital Signs Vital Sign Reading Time Taken Comments Blood Pressure 129/72 12/02/2023 3:10 PM CDT Pulse 67 12/02/2023 3:10 PM CDT Temperature 36.5 ??C (97.7 ??F) 10/30/2022 9:05 AM CD T Respiratory Rate 16 05/10/2022 11:05 AM PHLEBOTOMIST SUPERVISOR/INSTRUCTOR Oxygen Saturation 96% 12/02/2023 3:10 PM CDT Inhaled Oxygen Concentration - - Weight 82.7 kg (182 lb 6.4 oz) 12/02/2023 3:10 P M CDT Height 160 cm (5' 3) 12/02/2023 3:10 PM CDT Body Mass Index 32.31 12/02/2023 3:10 PM CDT Plan of Treatment Upcoming Encounters Date Type Department Care Team (Late st Contact Info) Description 03/11/2024 11:15 AM PHLEBOTOMIST SUPERVISOR/INSTRUCTOR Office Visit [facility] [address] [place] [phone] Rossi Arauz MD [address] [place] [address] Health Maintenance Due Date Last Done Comments RSV vaccine for adults or (1 - 1-dose 75+ series) 2021 COVID-19 vaccine series ( season) 2023 01/28/2022, 03/09/2021, 07/20/2020 Influenza for age 65+ 11/02/2023 01/28/2022 , 12/12/2020, 12/02/2019, Additional history exists Low Dose CT (for lung CA) ag e 50-80 06/10/2024 06/11/2023 (Completed outsid e of Carol), 03/09/2020 BMI (ht and wt on same day) for age 18+ 12/01/2024 12/02/2023, 01/11/2022, 11/14/2020, Additional history exists Depression screening for age 12+ 12/01/2024 12/02/2023, 01/11/2022, 01/11/2022, Additional history exists Medicare Wellness for age 65+ 12/02/2024, 01/11/2022, 11/14/2020, Additional history exists Tetanus booster 10/11/2030 10/11/2020, 11/01, 06/02/2000 Fecal testing non-DNA (FIT,FOBT,iFOBT) for age 45-75 Discontinued 01/29/2011 Hepatitis C screening for ag e 18-79 Completed 02/14/2015 Tdap Completed 10/11/2020, 11/16/2009 Zoster (shingles) series for age 50+ Completed 01/12/2021, 10/11/2020, 09/01/2015 Pneumococcal series for age 65+ Completed 12/02/2023, 09/01/2015, 01/29/2011 Procedures Procedure Name Priority Date/Time Associated Diagnosis Comments CT CHEST WO Routine 03/09/2020 8:31 AM PHLEBOTOMIST SUPERVISOR/INSTRUCTOR Pneumonitis ANTI HCV Routine 02/14/2015 8:53 AM PHLEBOTOMIST SUPERVISOR/INSTRUCTOR Need for hepatitis C screening test OCCULT BLOOD IFOBT STOOL Routine 01/29/2011 2:06 PM PHLEBOTOMIST SUPERVISOR/INSTRUCTOR Special screening for malignant neoplasms, colon from Last 3 Months or Most Recently Relevant to Health Maintenance Results * CT CHEST WO (03/09/2020 8:31 AM PHLEBOTOMIST SUPERVISOR/INSTRUCTOR) Anatomical Region Laterality Modality CHEST, THORAX, HEART Computed To mography 03/09/2020 8:31 AM PHLEBOTOMIST SUPERVISOR/INSTRUCTOR Narrative 03/09/2020 9:00 AM PHLEBOTOMIST SUPERVISOR/INSTRUCTOR EXAM: CT CHEST WO LOCATION: [facility] [employer] MEDICAL IMAGING DATE/TIME: 03/09/2020 8:31 AM INDICATION: Pneumonitis initial lung disease COMPARISON: CT abdomen and pelvis from 08/14/2018. TECHNIQUE: CT chest without IV contrast. Multiplanar reformats were obtained. Dose reduction techniques were used. CONTRAST: None. FINDINGS: LUNGS AND PLEURA: Biapical scarring. Emphysema. Scattered peripheral and basilar predominant reticular opacities and scarring, right greater than left. No honeycombing. Mild bronchiectasis again with a basilar predominance. There are a few scattered subpleural groundglass opacities in the bilateral lung bases. No pleural effusions. Scattered granulomas. Mild pleural thickening of the right major fissure (series 5/124-128). 2 mm right upper lobe pulmonary nodule on series 5 image 96. MEDIASTINUM/AXILLAE: Heart size is normal. Extensive coronary atherosclerosis. No suspicious adenopathy. UPPER ABDOMEN: Cholelithiasis. Hepatic steatosis. Simple cyst in the right lower liver moderate atherosclerosis. Small hiatal hernia. MUSCULOSKELETAL: Degenerative changes of the spine. Chronic L1 central compression deformity with loss of greater than 50% of the vertebral body height as well as a prominent central Schmorl's node. Old, healed left-sided rib fractures. IMPRESSION: 1. ??Scattered basilar predominant fibrotic changes and mild bronchiectasis. No honeycombing. Findings are suggestive of a probable UIP pattern. Continued attention on follow-up. 2. ??Right upper lobe 2 mm nodule. Follow-up as below. 3. ??Extensive coronary atherosclerosis. 4. ??Emphysema. 5. ??Cholelithiasis. 6. ??Hepatic steatosis. REFERENCE: Diagnostic criteria for idiopathic pulmonary fibrosis: a Fleischner Society White Paper. Lancet Respir Med 2018; 6: 138-[address] pattern Distribution: Basal and subpleural predominant; distribution is often heterogeneous Features: Reticular pattern with peripheral traction bronchiectasis or bronchiolectasis; absence of features to suggest an alternative diagnosis UIP=usual interstitial pneumonia. Reticular pattern is superimposed on ground glass opacity, and in these cases it is usually fibrotic. Pure ground glass opacity, however, would be against the diagnosis of UIP or IPF and would suggest acute exacerbation, hypersensitivity pneumonitis, or other conditions. REFERENCE: Guidelines for Management of Incidental Pulmonary Nodules Detected on CT Images: From the Fleischner Society 2017. Guidelines apply to incidental nodules in patients who are 35 years or older. Guidelines do not apply to lung cancer screening, patients with immunosuppression, or patients with known primary cancer. SINGLE NODULE Nodule size <6 mm Low-risk patients: No follow-up needed. High-risk patients: Optional follow-up at 12 months. Nodule size 6-8 mm Low-risk patients: Follow-up CT at 6-12 months, then consider CT at 18-24 months. High-risk patients: Follow-up CT at 6-12 months, then at 18-24 months if no change. Nodule size >8 mm Either low or high-risk patients: Consider CT, PET/CT, or tissue sampling at 3 months. Consider referral to lung nodule clinic. Procedure Note Francisco Grajeda MD - 03/09/2020 EXAM: CT CHEST WO LOCATION: [facility] [employer] IMAGING DATE/TIME: 03/09/2020 8:31 AM INDICATION: Pneumonitis initial lung disease COMPARISON: CT abdomen and pelvis from 08/14/2018. TECHNIQUE: CT chest without IV contrast. Multiplanar reformats wereobtained. Dose reduction techniques were used. CONTRAST: None. FINDINGS: LUNGS AND PLEURA: Biapical scarring. Emphysema. Scattered peripheral andbasilar predominant reticular opacities and scarring, right greater thanleft. No honeycombing. Mild bronchiectasis again with a basilarpredominance. There are a few scattered subpleural groundglass opacitiesin the bilateral lung bases. No pleural effusions. Scattered granulomas.Mild pleural thickening of the right major fissure (series 5/124-128). 2mm right upper lobe pulmonary nodule on series 5 image 96. MEDIASTINUM/AXILLAE: Heart size is normal. Extensive coronaryatherosclerosis. No suspicious adenopathy. UPPER ABDOMEN: Cholelithiasis. Hepatic steatosis. Simple cyst in the rightlower liver moderate atherosclerosis. Small hiatal hernia. MUSCULOSKELETAL: Degenerative changes of the spine. Chronic L1 centralcompression deformity with loss of greater than 50% of the vertebral bodyheight as well as a prominent central Schmorl's node. Old, healedleft-sided rib fractures. IMPRESSION: 1. Scattered basilar predominant fibrotic changes and mildbronchiectasis. No honeycombing. Findings are suggestive of a probable UIPpattern. Continued attention on follow-up. 2. Right upper lobe 2 mm nodule. Follow-up as below. 3. Extensive coronary atherosclerosis. 4. Emphysema. 5. Cholelithiasis. 6. Hepatic steatosis. REFERENCE: Diagnostic criteria for idiopathic pulmonary fibrosis: a [facility] White Paper. Lancet Respir Med 2018; 6: 138-[address] pattern Distribution: Basal and subpleural predominant; distribution is oftenheterogeneous Features: Reticular pattern with peripheral traction bronchiectasis orbronchiolectasis; absence of features to suggest an alternativediagnosis UIP=usual interstitial pneumonia. Reticular pattern is superimposed on ground glass opacity, and in thesecases it is usually fibrotic. Pure ground glass opacity, however, would beagainst the diagnosis of UIP or IPF and would suggest acute exacerbation,hypersensitivity pneumonitis, or other conditions. REFERENCE: Guidelines for Management of Incidental Pulmonary Nodules Detected on CTImages: From the Fleischner Society 2017. Guidelines apply to incidental nodules in patients who are 35 years orolder. Guidelines do not apply to lung cancer screening, patients withimmunosuppression, or patients with known primary cancer. SINGLE NODULE Nodule size <6 mm Low-risk patients: No follow-up needed. High-risk patients: Optional follow-up at 12 months. Nodule size 6-8 mm Low-risk patients: Follow-up CT at 6-12 months, then consider CT at 18-24months. High-risk patients: Follow-up CT at 6-12 months, then at 18-24 months ifno change. Nodule size >8 mm Either low or high-risk patients: Consider CT, PET/CT, or tissue sampling at 3 months. Consider referral to lung nodule clinic. Joe Atr DO CT * ANTI HCV [[id number]] (02/14/2015 8:53 AM PHLEBOTOMIST SUPERVISOR/INSTRUCTOR) HEPATITIS C ANTIBODY Non-Reacti ve Non-Reacti ve 02/14/2015 4:46 PM PHLEBOTOMIST SUPERVISOR/INSTRUCTOR [facility] Blood specimen (specimen) BLOOD SPECIMEN / Unknown Venipuncture / Unknown 02/14/2015 8:53 AM PHLEBOTOMIST SUPERVISOR/INSTRUCTOR 02/14/2015 8:54 AM PHLEBOTOMIST SUPERVISOR/INSTRUCTOR Narrative [facility] - 02/14/2015 4:46 PM PHLEBOTOMIST SUPERVISOR/INSTRUCTOR Antibodies to HCV not detected; does not exclude the possibility of exposure to HCV. Cain Garcia MD SEND OUTS [facility] [address] * OCCULT BLOOD IFOBT STOOL (01/29/2011 2:06 PM PHLEBOTOMIST SUPERVISOR/INSTRUCTOR) STOOL BLOOD ,IFOBT Negative (Negative) [facility] Stool specimen (specimen) STOOL SPECIMEN / Unknown 01/29/2011 2:06 PM PHLEBOTOMIST SUPERVISOR/INSTRUCTOR 01/29/2011 2:05 PM PHLEBOTOMIST SUPERVISOR/INSTRUCTOR Cain Garcia MD LABORATORY [facility] [address] [place] [address] from Last 3 Months or Most Recently Relevant to Health Maintenance Advance Directives * Full Code (Latest Code Status on File) Date Activated Date Inactivated Comments 10/26/2019 2:45 PM 10/27/2019 12:18 PM Question Answer Comments Code Status Discussion: Not Discussed Care Teams Guest Experience Specialist Relationship Specialty Start Date End Date Cain Garcia MD [address] [place] [address] PCP - General Family Practice 03/13/21 Sobia Muhammad MD [address] [place] [address] Dermatology 02/11/12 Sobia Muhammad MD [address] [place] [address] Dermatology Dermatology 06/11/12
--- OUTSIDE RECORDS SUMMARY | 2023-12-20 03:49 | XMS_ITS | Data Portability ---
Author Organization [place] [facility], [facility] Address [address] [place] [address] Assessment Encounter Date Assessment Date Assessment LastModified by Organization Details LastModified Time 02/11/2020 02/11/2020 75-year-old male with BPH with lower urinary tract symptoms status post TURP and Alex grade group 1 prostate cancer on watchful waiting. [email or web address] Not available 02/11/2020 14:11:59 Plan of Treatment Reminders Order Date Submit Date Provider Last Modified By Organization Details Last Modified Time Details Appointments None recorded. Lab urinalysi s, dipstick 2019 [id number] [email or web address] Not available 0 18:06:32 Referral None recorded. Procedures None recorded. Surgeries None recorded. Imaging None recorded. Medication Orders None recorded. Patient TargetsNo targets recorded. Patient InstructionsNo instructions recorded. Reason for Referral None Reported. Results Created Date Observation Date Name Description Value Unit Range Abnormal Flag Note LastModifiedBy Organization Detail LastModifiedTime 02/02/2020 urina lysis , dipst ick Color-Status Yellow Not Available [facility] [address], [place], [address], 02/02/2020 18:05:51 02/02/2020 urina lysis , dipst ick pH-Status 6.5 Not Available [facility] [address], [place], [address], 02/02/2020 18:05:51 02/02/2020 urina lysis , dipst ick Performed by agapito park PA-C Not Available [facility] [address], [place], [address], 02/02/2020 18:05:51 Result Notes None recorded. Procedures Surgical History Date Name Laterality Status Provider Name and Address Organization Details Recorded Time 0 Urodynamic Studies completed LUCIEN Ballesteros [address] [place] [address],[address], [place], [address], [facility] 02/02/2020 16:59:55 Imaging Results None recorded. Procedure Notes None recorded. Medical Equipment None Reported. Allergies No known drug allergies Medications Name Sig Start Date Stop Date Status Note LastModified by Organization Details LastModified Time ipratropium 0.5 mg-albuterol 3 mg (2.5 mg base)/3 mL nebulization soln INHALE 1 AMP PER NEB EVERY 6 HOURS IF NEEDED active Not Available Not Available No t Available prednisone 20 mg tablet active Not Available Not Available No t Available tamsulosin 0.4 mg capsule TAKE 1 CAPSULE BY MOUTH ONCE DAILY AFTER A MEAL. active Not Available Not Available No t Available metoprolol succinate ER 25 mg tablet,extende d release 24 hr active Not Available Not Available Not Available levofloxacin 500 mg tablet TAKE 1 TABLET BY MOUTH DAILY. active Not Available Not Available No t Available albuterol sulfate HFA 90 mcg/actuation aerosol inhaler INHALE 2 PUFFS EVERY 4 HOURS NEEDED active Not Available Not Available No t Available rosuvastatin 10 mg tablet active Not Available Not Available Not Available Vitals Date Recorded Body height Body mass index (BMI) Body weight Provider Name and Address Organization Details Last Updated DateTime 02/11/2020 160.02 cm 29.6 kg/m2 76928.93 g Anish Ortega [facility] 02/11/2020 13:52:19 Social History Question Answer Notes LastModified by Organizat ion Details LastModified Time Tobacco Smoking Status Former Smoker Anish Ortega [facility] 02/11/2020 13:52:53 What Is Your Level Of Alcohol Consumption? None Information not available 02/11/2020 What Is Your Level Of Caffeine Consumption? Heavy Information not available 02/11/2020 How Much Tobacco Do You Chew? None Information not available 02/11/2020 Do You Or Have You Ever Used E-cigarettes Or Vape? Never Used Electronic Cigarettes Information not available 02/11/2020 Recreational Drug Use No Information not available 02/11/2020 Marital Status Informatio n not available 02/11/2020 How Much Tobacco Do You Smoke? 1 PPD Information not available 02/11/2020 How Many Years Have You Smoked Tobacco? 30 Information not available 02/11/2020 Sex: Unknown Functional Status None recorded. Mental Status None recorded. Family History Nothing Reported. Medical History Condition Response High Blood Pressure N Kidney Stones N Lung Disease N Depression N GERD/Acid Reflux N Sexually Transmitted Infection N Diabetes N Bleeding Disorder N Cancer N High Cholesterol N Heart Disease N Immunizations Vaccine Type Date Status Provider Name and Address Organization Details Recorded Time Pneumococcal conjugate PCV 13 09/01/2015 completed BALDO Iverson [facility] 02/29/2020 11:29:39 Past Encounters Encounter ID Performer Location Encounter Start Date Encounter Closed Date Diagnosis/Indication Diagnosis SNOMED-CT Code Diagnosis ICD10 Code [id number] LUCIEN Ballesteros [facility] [address] [place] [address] 02/02/2020 14:31:51 02/03/2020 08:44:58 Lower urinary tract symptoms due to benign prostatic hypertrophy 6207550913 9101 N40.1 [id number] Koffi Padilla MD [facility] [address] [place] [address] 02/11/2020 12:51:00 02/11/2020 14:34:18 Lower urinary tract symptoms due to benign prostatic hypertrophy 5682728492 9101 N40.1 Malignant tumor of prostate 571215443 C61 Health Concerns Section Related Observation LastModified by Organization Detai ls LastModified Time None Recorded Concern Status LastModified by Organization Details LastModified Time None Recorded Advance Directives Directive None Recorded Payers Encounter Date Sequence Insurance Name Policy Number Policy Serrato Covered Member ID Serrato Member ID Guarantor Name 02/02/2020 1 [facility] (MEDICARE REPLACEMENT/A DVANTAGE - PPO) [id number] Luisito Caldera [id number] Luisito Caldera 02/11/2020 1 [facility] (MEDICARE REPLACEMENT/A DVANTAGE - PPO) [id number] Luisito Caldera [id number] Luisito L Caldera Notes Date Note Type Note Provider Name and Address Organization Details Recorded Time 02/11/2020 text/html HPI Notes: Mr. Loo is a very pleasant 75-year-old gentleman with a history of BPH and low-grade prostate cancer which was diagnosed on TURP back in 2017. Patient's PSA has been followed and has been noted to be normal and stable. He has developed increasing lower urinary tract symptoms primarily during the course of 3 times per night as well as a weakened stream. Patient states that actually over the last several months now things have been better he is getting up 0-1 times per night and feels like he is getting everything. Patient underwent urodynamic studies which I reviewed and interpreted with him today. Upon bladder filling we do see appropriate bladder compliance. When given permission to void we see a good detrusor contraction but limited urine flow which culminates in a bladder outlet obstruction index consistent with outlet obstruction. Patient expresses an understanding and all questions answered. At this point he is not really interested in pursuing any further intervention. Koffi Padilla MD [address], [place], [address], [facility] 05/22/2020 10:49:13
--- OUTSIDE RECORDS SUMMARY | 2023-12-20 03:49 | XMS_ITS | Encounter Summary ---
Author Name [facility] Organization [facility] Address [address] [place] [address] Care Team Providers Care Fire Inspector Name Role Phone RAI THOMPSON Primary Care Provider Unavailabl e Insurance Providers: [...] SUPPL EMENT Mar 03, 2015 PLAN N [id number] [phone] RADHA SIMON PATIENT MEDICARE (WNR) MEDICARE (M) PART B Mar 03, 2015 PART B [id number] [phone] RADHA SIMON PATIENT MEDICARE (WNR) MEDICARE (M) PART A Jan 01, 2011 PART A [id number] RADHA SIMON PATIENT Selected Encounter This section includes the information on record at [place] for the Encounter. Date/Time Encounter Type Encounter Description Reason Provider Source May 07, 2023 07:45 AM Outpatient Encounter ADMIN PAT ACTIVTIES (MASNONCT) ILDA FINLEY Aki Encounter Template Text not used by [place] Plan of Treatment: Future Appointments (+ 6 months) and Future Tests (+/- 45 days) The Plan of Treatment section includes future care activities for the patient from all [place] treatmentfacilities. This section includes future appointments and future orders which are active, pending or scheduled. Future Appointments This section includes appointments that were scheduled to occur 6 months from the date of the Encounter, up to a maximum of 20 appointments. The data comes from all [place] treatment facilities. Appointment Date/Time Appointment Type Appointme nt Facility Name Jun 11, 2023 12:45 PM AMBULATORY - NONE [facility] Jun 25, 2023 11:30 AM [facility] - [facility]ICINE [facility] Jun 25, 2023 01:15 PM [facility] - [facility] July 02, 2023 10:00 AM AMBULATORY - SURGERY [facility] Sep 25, 2023 07:00 AM AMBULATORY - NONE [facility] Oct 09, 2023 10:30 AM [facility]ULATORY - MEDICINE [facility] Oct 30, 2023 02:30 PM [facility]ORY - NONE [facility] Encounter Notes: All associated encounter notes This section contains the clinical notes associated to the Encounter. Date/Time Encounter Note(s) Provider Source May 07, 2023 07:45 AM PULMONARY NOTE: LOCAL TITLE: PULMONARY LUNG CANCER SCREENING STANDARD TITLE: PULMONARY NOTE DATE OF NOTE: MAY 07, 2023@07:45 ENTRY DATE: MAY 07, 2023@07:45:54 AUTHOR: ILDA FINLEY EXP COSIGNER: URGENCY: STATUS: COMPLETED Initial Lung Cancer Screen (Provider): No clinical exclusions, patient is a current candidate for the lung cancer screening program. Patient agrees to lung cancer screening. Lung cancer screening information provided and low dose CT will be ordered. Please see Pulmonary Lung Cancer Screening Program Consult that was entered by PCP for further details. /alma/ ILDA FINLEY RN, BSN PULMONARY/LCS [employer]OM[employer] BOILER OPERATOR Signed: 05/07/2023 07:47 ILDA FINLEY [facility]
--- OUTSIDE RECORDS SUMMARY | 2023-12-20 03:49 | XMS_ITS | Encounter Summary ---
Author Name [facility] ([place]) Organization [facility] Address [address] [place] [address] Care Team Providers Care Shot Hole Driller Name Role Phone AMELIA VILLALPANDO Primary Care [...] SUPPL EMENT Mar 03, 2015 PLAN N [id number] [phone] RADHA SIMON PATIENT MEDICARE (WNR) MEDICARE (M) PART B Mar 03, 2015 PART B [id number] RADHA SIMON PATIENT MEDICARE (WNR) MEDICARE (M) PART A Jan 01, 2011 PART A [id number] RADHA SIMON PATIENT Selected Encounter This section includes the information on record at [place] for the Encounter. Date/Time Encounter Type Encounter Description Reason Provider Source Jun 25, 2023 11:30 AM OFFICE O/P EST LOW 20 MIN PRIMARY CARE/MEDICINE ICD-10-CM D48.5 Neoplasm of uncertain behavior of skin AMELIA VILLALPANDO Encounter Template Text not used by [place] Assessments - Encounter Diagnoses This section includes the primary and secondary diagnoses documented for the Encounter. Date/Time Primary/Secondary Diagnosis Diagnosis Name Provider Source Jun 25, 2023 12:36 PM PRIMARY Neoplasm of uncertain behavior of skin AMELIA VILLALPANDO ([facility]) Plan of Treatment: Future Appointments (+ 6 months) and Future Tests (+/- 45 days) The Plan of Treatment section includes future care activities for the patient from all [place] treatmentfacilities. This section includes future appointments and future orders which are active, pending or scheduled. Future Appointments This section includes appointments that were scheduled to occur 6 months from the date of the Encounter, up to a maximum of 20 appointments. The data comes from all [place] treatment facilities. Appointment Date/Time Appointment Type Appointme nt Facility Name July 02, 2023 10:00 AM AMBULATORY - SURGERY [facility] Sep 25, 2023 07:00 AM AMBULATORY - NONE [facility] Oct 09, 2023 10:30 AM [...] of theEncounter. The data comes from all [place] treatment [facility]. Test Date/Time Test Type Test Details Facility Name July 07, 2023 02:49 PM Consult Order COMM[facility]ITY [facility]-DERMATOLOGY Cons Electric Arc Furnace Operator's Choice [facility] Vital Signs: All taken on the [...] and tobacco- related health factors from the VA facility where the Encounter took place. Current Smoking Status This section includes the most current smoking, or tobacco-related health factor, from the [place] facility where the Encounter took place. Date/Time Current Smoking Status Comment Facil ity Oct 22, 2022 10:00 AM VA-TOBACCO FORMER USER [facility] ([facility]) Tobacco Use History This section includes a history of the smoking, or tobacco-related health factors, that were collected on or before the date of the Encounter. The data comes from the [place] facility where the Encounter took place. Date/Time Smoking Status/Tobacco Use Comment F acility Oct 22, 2022 10:00 AM VA-TOBACCO QUIT 5 TO < 15 YRS [facility] [place] ([facility]) Oct 11, 2021 10:30 AM VA-TOBACCO FORMER USER [facility] [place] ([facility]) Oct 11, 2021 10:30 AM VA-TOBACCO QUIT 5 TO < 15 YRS [place] ([facility]) Oct 11, 2020 10:30 AM VA-TOBACCO FORMER USER [facility] ([facility]) Oct 11, 2020 10:30 AM VA-TOBACCO QUIT 5 TO < 15 YRS [place] ([facility]) Sep 13, 2019 08:25 AM VA-TOBACCO FORMER USER [place] ([facility]) Sep 13, 2019 08:25 AM VA-TOBACCO QUIT 1 TO < 5 YRS [facility] [place] ([facility]) Oct 09, 2017 02:36 PM VA-TOBACCO FORMER USER [facility] [place] ([facility]) Oct 09, 2017 02:36 PM VA-TOBACCO QUIT 5 TO < 15 YRS [facility] ([facility]) Oct 08, 2017 04:05 PM CURRENT TOBACCO USER [facility] [place] ([facility]) Oct 02, 2016 01:35 PM FORMER TOBACCO USER 7Y OR GREATE R [facility] [place] ([facility]) Sep 21, 2015 08:10 AM CURRENT TOBACCO USER [facility] [place] ([facility]) Radiology Reports: +/- 30 days of [...] the Encounter. The data comes from all [place] treatment facilities. Date/Time Radiology Report Provider Source Jun 11, 2023 12:14 PM LDCT LUNG CANCER S CREENING: RADHA SIMON [id number] -1945 M Exm Date: JUN 11, 2023@12:14 Req Phys: AMELIA VILLALPANDO Loc: [facility] PULM CHART CHECK [facility] (Req' Img Loc: CT IMAGING Service: Unknown (Case [id number] COMPLETE) LDCT LUNG CANCER SCREENING (CT Detailed) CPT:47059 Reason for Study: LDCT for Lung Cancer Screening (INITIAL) Clinical History: [place] IS NOT under investigation for COVID-19 or is COVID-19 negative LDCT for Lung Cancer Screening (INITIAL) Please note that had LDCT @ [facility] 05/02/22 Lung RADS: 2 BENIGN Responsible provider [...] 11, 2023 Date Verified: JUN 11, 2023 Hog Buyer E-Sig:/ES/EDDIE ROBB MD Report: EXAM: LDCT LUNG [...] Primary Interpreting Staff: EDDIE ROBB MD, RADIOLOGIST (Hog Buyer) /EDDIE WOODARD [facility] Pathology Reports: +/- 30 days of [...] the Encounter. The data comes from all [place] treatment facilities. Date/Time Pathology Report Provider Source July 07, 2023 10:13 AM LR SURGICAL PATHOL OGY REPORT: LOCAL TITLE: LR SURGICAL PATHOLOGY REPORT STANDARD TITLE: PATHOLOGY REPORT DATE OF NOTE: JULY 07, 2023@10:13:56 ENTRY DATE: JULY 07, 2023@10:13:56 AUTHOR: KAYCEE KARIMI EXP COSIGNER: URGENCY: STATUS: COMPLETED $APHDR Reporting Lab: [facility] [CLIA# [id number]] [place] [address] - - - - - - - [...] 0.3 cm. The specimen is inked. CE. [facility] MICROSCOPIC DESCRIPTION: Microscopic examination performed. 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 in the shave biopsy /es/ KAYCEE KARIMI MD STAFF PATHOLOGIST, PATHOLOGY & LABORATORY [facility] Signed July 07, 2023@10:13 Performing Laboratory: Surgical Pathology Report Performed By: [facility] [CLIA# [id number]] [place] [address] $FTR - - - - - - [...] - - RADHA SIMON STANDARD FORM 515 ID:[id number] SEX:M :1945 AGE: 78 LOC:1068 PCP: Amelia Villalpando /alma/ KAYCEE KARIMI MD STAFF PATHOLOGIST, PATHOLOGY & LABORATORY MED [facility] Signed: 07/07/2023 10:13 KAYCEE KARIMI [facility] Encounter Notes: All associated encounter notes This section contains the clinical notes associated to the Encounter. Date/Time Encounter Note(s) Provider Source Jun 25, 2023 12:18 PM PRIMARY CARE NOTE: LOCAL TITLE: [facility] PROGRESS NOTE-[facility] [place] STANDARD TITLE: PRIMARY CARE NOTE DATE OF NOTE: JUN 25, 2023@12:18 ENTRY DATE: JUN 25, 2023@07:59:06 AUTHOR: AMELIA VILLALPANDO EXP COSIGNER: URGENCY: STATUS: COMPLETED Type of Visit: Face to Face Reason for Visit: Dermatology concerns HPI: 78 year-old MALE here for dermatology concerns. was last seen on 10/22/2022 for his annual visit. Since that time has had pulmonary lung cancer screening. He contacted clinical nurse triage on 06/19/2023 with the following complaints: PATIENT CONCERN/DURATION/ONSET: calling after seeing community provider that is concerned that the bump on the back of his head could be cancerous. noticed it about 2 weeks ago that is had started to scab. The area is getting larger, scabbing and not healing. Denies pain, fever, warmth at the site. WHAT HAS PATIENT TRIED TO TREAT THE SYMPTOMS: reports that he had skin cut off of his ear 3 weeks ago r/t skin cancer. Saw Community PCP today and was told ''it is probably skin cancer and they may have missed it 3 weeks ago.'' HISTORY/PREVIOUS TREATMENT: COPD, low back pain, colon polyp WHAT IS PATIENT GOAL FOR THE CALL: requesting a consult to dermatology Noticed this 3-4 weeks ago. [place] had a skin cancer recheck - seen in [place] not through the [place]. Worried about this being skin cancer Co-managed: Home medications: reviewed and updated Review of systems: otherwise negative Past Medical History: 1. Prostate cancer - T1a - Alex 3+3 = 6 - dx 11/18/16 - Expectant management - Monitor PSA yearly through [facility] 2. BPH - Benign prostatic hypertrophy - s/p TURP (11/2016) 3. Chronic obstructive lung disease - 2014 - PFT: FEV1=64% predicted. Hyperinflation on cxr. 4. Colon polyp Colonoscopy 08/2008 Large rectal polyp- surgery recommended Colonoscopy 01/2010 polyps repeat in 2 years Colonoscopy 10/2011 multiple polyps repeat in 2 years Colonoscopy 11/2013 polyps repeat in 3 years Colonoscopy 08/2016 hyperplastic polyp repeat in 5 years Colonoscopoy 05/10/2022 3 tubular adenoma, repeat in 5 years 5. Low back pain 6. Hearing Loss 7. Exposure to potentially hazardous substance Past Surgical History: 1[facility] 2. Back surgery (1989 and 1990) 3. Appendectomy (11/2017) 4. Angiogram 10/26/2019 completed after abnormal stress test: normal 5. Bilateral cataract with IOL 08/2017 Family History: 1. Brother - Prostate Cancer, 2. Brother - Skin Cancer, melanoma 3. Brother - Agent [place], 4. Sister - Breast Cancer 5. Nephew - Leukemia 6. Uncle - Leukemia 7. Sister x 2, pancreas cancer, 8. Father - prostate cancer Social History: 1. Ex-smoker - 1/2 ppd x 50yrs. Quit 01/24/2013 2. No ETOH 3. 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 Relationship status: 6. Service: Allergies: NKDA Physical Exam: Temp: 98.9 F [37.2 C] (06/25/2023 11:36) Pulse:68 (06/25/2023 11:36) BP: 126/74 (06/25/2023 11:43) Resp: 18 (06/25/2023 11:36) O2 Sat: 94% (06/25/2023 11:36) Weight: 182.9 lb [82.96 kg] (06/25/2023 11:36) BMI: 32.0 Pain: 0 (06/25/2023 11:36) General: AAOx3, NAD, Healthy, obese HEENT: AT/NC Skin: right posterior scalp 1 cm x 1 cm raised slightly red lesion with no drainage. No hair growth on the area Labs: ---- CBC & MORPH (by collection time) ---- BLOOD Aug Reference 2022 11:07 Units Ranges - WBC 10.0 K/cmm 4 - 11 RBC 4.61 M/cmm 4.6 - 6.2 HGB 15.2 g/dL 13.5 - 17.9 HCT 44.2 % 41 - 54 MCV 95.9 fL 80 - 100 MCH 33.0 pg 27 - 33 MCHC 34.4 gm/dL 32 - 37.5 RDW 11.8 % 11.5 - 14.5 PLT 177 K/cmm 150 - 400 MPV 10.9 H fL 7.4 - 10.4 ---- LIPID GROUP (PLASMA)(by collection time) ---- PLASMA CHOL TRIG HDL LDL VLDL NONHDLC Ref range low 0 0 Ref range high 200 150 mg/dL mg/dL mg/dL mg/dL mg/dL mg/dL - [c] Oct 22, 2022 11:07 131 106 43 67 21 88 ---- TUMOR MARKERS (by collection time) ---- SERUM AFP-MOD B-HCG CA 125 CEA PAP PSA Ref range low 0 0 0 0 3.1 0 Ref range high 8 10 20 5 7 4 ng/mL mIU/mL U/mL ng/mL U/L ng/mL - [a] Oct 22, 2022 11:07 2.8 ---- PLASMA CHEM PROFILE (by collection time) ---- PLASMA Oct 222022 11:07 Units Ranges - CREAT 0.9 mg/dL .7 - 1.2 BUN 9 mg/dL 8 - 26 GLUCOSE 83 mg/dL 74 - 106 SODIUM 133 L mmol/L 136 - 145 K+ 4.5 mmol/L 3.5 - 5 CL- 99 mmol/L 98 - 107 CO2 27.0 mmol/L 21 - 32 ANI GAP 7 mmol/L 5 - 15 CALCIUM 9.5 mg/dL 8.5 - 10.1 TP 7.1 g/dL 6.4 - 8.2 ALB 4.4 g/dL 3.4 - 5 MG 2.0 mg/dL 1.8 - 2.4 TBIL 1.1 mg/dL .2 - 1 ALT 23 U/L 13 - 61 AST 25 U/L 15 - 37 ALKP 59 U/L 45 - 117 Oct 22, 2022@11:07 HEMOGLOBIN A1C: 5.4 % 4.0 - 6.0 Oct 22, 2022@11:07 TSH : 2.20 uIU/mL 0.35 - 4.94 Oct 22, 2022@11:07 CREAT EGFR(CKD-EPI): 89 Ref: >=60 Imaging Assessment/Plan: 1. Lesion right posterior scalp - Raised lesion over the last 5-6 weeks - Was raised/rough patch that came off the top of the lesion yesterday - He has had history of BCC in the past - Recommend telederm consult - Will follow-up with dermatology as directed RTC in 10/2023 CPRS chart review/chart prep: 4 minutes Time with patient: 20 minutes Chart completion: 3 mintues Clinical Reminders: Medication Reconciliation: Education Evaluations *Was medication education provided for NEW medications or CHANGES to medications? (including medication name, dose, route, reason for use, and potential side effects). No new medications or medication changes during this encounter. TERATOGENIC MED & CONTRACEPTION REVIEW (Optional)... ======= MEDICATION RECONCILIATION ======= List Given: An updated medication list was provided to the patient/caregiver. Review Done: The medication list shown below was verified for accuracy and it includes all pending medications/active medications/all medications or discontinued within the last 90 days/all remote medications and non-VA medications. If a given category (i.e. remote meds) is not shown, that means that a patient doesn't have a medication(s) in that category. Allergies listed below were also reviewed/updated for accuracy. Allergies/ADR from [facility] may not display in CPRS. Use JLV MRT5 - Allergies/ADRs FACILITY ALLERGY/ADR -------- No Remote Allergy/ADR Data available for this patient [facility] No Known Allergies Active and Recently Outpatient Medications (including Supplies): Issue Date Status Last Fill Active Outpatient Medications Refills Expiration 1) ALBUTEROL 90MCG (CFC-F) 200D ORAL INHL ACTIVE Issu:10-22-22 Qty: 2 for 50 days Sig: INHALE 2 Refills: 5 Last:04-28-23 PUFFS BY INHALATION FOUR TIMES A DAY Expr:10-23-23 NEEDED FOR IMMEDIATE RELIEF OF SHORTNESS OF BREATH *SHAKE WELL* 2) ALBUTEROL SO4 0.083% INHL 3ML Qty: 120 ACTIVE Issu:10-22-22 for 30 days Sig: INHALE 3 ML (1 VIAL) Refills: 0 Last:05-06-23 IN NEBULIZER BY INHALATION EVERY 6 Expr:10-23-23 HOURS NEEDED FOR SHORTNESS OF BREATH 3) AZITHROMYCIN 250MG TAB Qty: 45 for 90 ACTIVE Issu:10-01-22 days Sig: TAKE ONE TABLET BY MOUTH Refills: 1 Last:05-16-23 THREE TIMES A WEEK FOR COPD WITH Expr:10-02-23 CHRONIC COUGH 4) FLUTICAS 250/SALMETEROL 50 INHL DISK 60 ACTIVE Issu:10-22-22 Qty: 3 for 90 days Sig: INHALE 1 PUFF Refills: 1 Last:05-20-23 BY INHALATION TWICE A DAY *RINSE MOUTH Expr:10-23-23 AFTER EACH USE* 5) TAMSULOSIN HCL 0.4MG CAP Qty: 90 for 90 ACTIVE Issu:05-06-23 days Sig: TAKE ONE CAPSULE BY MOUTH Refills: 3 Last:05-07-23 DAILY Expr:05-06-24 6) TIOTROPIUM 18MCG INHL CAP 30 Qty: 1 for ACTIVE Issu:10-01-22 30 days Sig: INHALE ONE CAPSULE IN Refills: 3 Last:05-27-23 INHALER BY INHALATION EVERY DAY TO Expr:10-02-23 PREVENT TROUBLE BREATHING Issue Date Status Last Fill Inactive Outpatient Medications Refills Expiration 1) ALBUTEROL SO4 0.083% INHL 3ML Qty: 120 DISCONTINUED Issu:03-28-22 for 30 days Sig: INHALE 3 ML (1 VIAL) Refills: 0 Last:08-29-22 IN NEBULIZER BY INHALATION EVERY 6 Expr:03-29-23 HOURS NEEDED FOR SHORTNESS OF BREATH 2) OMEPRAZOLE 20MG EC CAP Qty: 90 for 90 DISCONTINUED Issu:05-15-22 days Sig: TAKE ONE CAPSULE BY MOUTH Refills: 1 Last:05-15-22 EVERY DAY ON AN EMPTY STOMACH, AT Expr:05-16-23 LEAST 30 MINUTES PRIOR TO A MEAL 3) TAMSULOSIN HCL 0.4MG CAP Qty: 90 for 90 DISCONTINUED Issu:05-02-22 days Sig: TAKE ONE CAPSULE BY MOUTH Refills: 1 Last:01-20-23 DAILY Expr:05-03-23 Start Date Active Non-VA Medications Refills Expiration 1) Non-VA ASPIRIN 81MG EC TAB SiMG ACTIVE MOUTH EVERY DAY 2) Non-VA CHOLECALCIF 25MCG (D3-1,000UNIT) ACTIVE TAB SiMCG MOUTH DAILY 3) Non-VA MAGNESIUM OXIDE CAP,ORAL Sig: ACTIVE 250MG MOUTH DAILY 4) Non-VA MULTIVITAMIN CAP/TAB Si ACTIVE TABLET MOUTH EVERY DAY 5) Non-VA SENNOSIDES 8.6MG TAB Si.6MG ACTIVE MOUTH TWICE A DAY 14 Total Medications /es/ AMELIA VILLALPANDO MD PHYSICIAN Signed: 06/25/2023 12:36 AMELIA VILLALPANDO ([facility]) Jun 25, 2023 11:40 AM PRIMARY CARE NOTE: [facility] TITLE: [facility] PROGRESS NOTE-[place] [place] STANDARD TITLE: PRIMARY CARE NOTE DATE OF NOTE: JUN 25, 2023@11:40 ENTRY DATE: JUN 25, 2023@11:40:31 AUTHOR: CRYSTAL PARTIDA EXP COSIGNER: URGENCY: STATUS: COMPLETED TYPE OF VISIT: Appointment Check In Type of appointment: In-person appointment REASON FOR VISIT: Derm evaluation, concerned with spot on head. ALLERGIES: Patient has answered NKA VITAL SIGNS: Blood Pressure: 147/69 (06/25/2023 11:36) Pulse: 68 (06/25/2023 11:36) Respiration: 18 (06/25/2023 11:36) Temperature: 98.9 F [37.2 C] (06/25/2023 11:36) Weight: 182.9 lb [82.96 kg] (06/25/2023 11:36) Height: 63.5 in [161.3 cm] (10/22/2022 10:06) BMI: 32.0 O2 Sat: 94% (06/25/2023 11:36) Pain: 0 (06/25/2023 11:36) PAIN SCREEN: Patient is not having significant pain that they wish to discuss with their provider today. MEDICATION Active Outpatient Medications (including Supplies): ALBUTEROL 90MCG (CFC-F) 200D ORAL INHL INHALE 2 PUFFS BY ACTIVE INHALATION FOUR TIMES A DAY NEEDED FOR IMMEDIATE RELIEF OF SHORTNESS OF BREATH *SHAKE WELL* ALBUTEROL SO4 0.083% INHL 3ML INHALE 3 ML (1 VIAL) IN ACTIVE NEBULIZER BY INHALATION EVERY 6 HOURS NEEDED FOR SHORTNESS OF BREATH AZITHROMYCIN 250MG TAB TAKE ONE TABLET BY MOUTH THREE ACTIVE TIMES A WEEK FOR COPD WITH CHRONIC COUGH FLUTICAS 250/SALMETEROL 50 INHL DISK 60 INHALE 1 PUFF BY ACTIVE INHALATION TWICE A DAY *RINSE MOUTH AFTER EACH USE* TAMSULOSIN HCL 0.4MG CAP TAKE ONE CAPSULE BY MOUTH DAILY ACTIVE TIOTROPIUM 18MCG INHL CAP 30 INHALE ONE CAPSULE IN INHALER ACTIVE BY INHALATION EVERY DAY TO PREVENT TROUBLE BREATHING Non-VA ASPIRIN 81MG EC TAB 81MG MOUTH EVERY DAY ACTIVE Non-VA CHOLECALCIF 25MCG (D3-1,000UNIT) TAB 25MCG MOUTH ACTIVE DAILY Non-VA MAGNESIUM OXIDE CAP,ORAL 250MG MOUTH DAILY ACTIVE Non-VA MULTIVITAMIN CAP/TAB 1 TABLET MOUTH EVERY DAY ACTIVE Non-VA SENNOSIDES 8.6MG TAB 8.6MG MOUTH TWICE A DAY ACTIVE Recheck Blood pressure: 126/74 /es/ CRYSTAL PARTIDA LPN Signed: 06/25/2023 11:43 RCYSTAL PARTIDA [place] ([facility])
--- OUTSIDE RECORDS SUMMARY | 2023-12-20 03:49 | XMS_ITS | Continuity of Care Document ---
Author Name [facility] Organization [facility] Care Team Providers Care [employer] Diver Name Role Phone [facility] Unavailable Unavailable Problems Combined list of problems from Department of Defense and Veterans Affairs facilities. It does not include entries that were removed or entered in error. Problem Status Onset Date Problem Type Date of Resolution Comments Source Exposure to potentially hazardous substance ([facility] [id number] ) Active 05/09/19 24 Condition May 09, 2023 Entered By: ERIKA HOOPER Comment: [facility] K[facility]STIAN Documentation Initiative [facility] BPH - Benign prostatic hypertrophy Active Condition Oct 09, 2017 Entered By: MARK HOLMAN Comment: TURP (11/2016 @ [facility]) [place] [facility] Chronic obstructive lung disease Active Condition [place] [facility]) Low back pain Active Condition Oct Entered By: MARK HOLMAN Comment: Back surgery (1989 and 1990)Oct 09, 2017 Entered By: MARK HOLMAN Comment: Hip surgery (1993) [place] ([facility]) 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) Active Condition [place] ([facility] Primary malignant neoplasm of prostate Active Condition [place] ([facility]) Tobacco use Active Condition [place] ([facility] Diagnosis: ICD-10-CM Z00.00 Encntr for general adult medical exam w/o abnormal findings Active Diagnosis [place] ([facility] Diagnosis: ICD-10-CM C44.41 Basal cell carcinoma of skin of scalp and neck Active Diagnosis [facility] Diagnosis: ICD-10-CM D48.5 Neoplasm of uncertain behavior of skin Active Diagnosis [facility] Medications Combined list of outpatient medications from Department of Defense and Veterans Affairs facilities.Medications provided include 1) outpatient medications from the last 15 months, and 2) patient-reported medications. Medication Details Route Status Patient Instructions Prescription Expires Prescription Number Last Dispense Date Ordering Provider Order Date Order Qty Source ALBUTEROL 90MCG/ACTUA T (CFC-F) INHL,ORAL,8 .5GM DOSE COUNTER INHALE 2 PUFFS BY INHALATI ON FOUR TIMES A DAY NEEDED FOR IMMEDIAT E RELIEF OF SHORTNES S OF BREATH *SHAKE WELL* RESPIR ATORY (INHAL ATION) ACTIVE 10/09/2024 [id number] ENA THOMPSON NATALIE Brown 2023 2 [place] [facility] ALBUTEROL 90MCG/ACTUA T (CFC-F) INHL,ORAL,8 .5GM DOSE COUNTER INHALE 2 PUFFS BY INHALATI ON FOUR TIMES A DAY NEEDED FOR IMMEDIAT E RELIEF OF SHORTNES S OF BREATH *SHAKE WELL* RESPIR ATORY (INHAL ATION) DISCONT INUED 10/23/2023 [id number] 4 ENA THOMPSON NATALIE Brown 2022 2 [place] [facility]) ALBUTEROL SO4 0.083% INHL,3ML INHALE 3 ML (1 VIAL) IN NEBULIZE R BY INHALATI ON EVERY 6 HOURS NEEDED FOR SHORTNES S OF BREATH RESPIR ATORY (INHAL ATION) ACTIVE 07/07/2024 [id number] 4 JAYENA NATALIE Brown 2023 120 [place] [facility] ALBUTEROL SO4 0.083% INHL,3ML INHALE 3 ML (1 VIAL) IN NEBULIZE R BY INHALATI ON EVERY 6 HOURS NEEDED FOR SHORTNES S OF BREATH RESPIR ATORY (INHAL ATION) DISCONT INUED 10/23/2023 [id number] 4 JAYENA NATALIE Brown 2022 120 [place] [facility] ASPIRIN 81MG TAB,EC TAKE ONE TABLET BY MOUTH EVERY DAY ORAL ACTIVE Shannan ALVARADO 2015 [place] [facility] AZITHROMYCI N 250MG TAB TAKE ONE TABLET BY MOUTH THREE TIMES A WEEK FOR COPD WITH CHRONIC COUGH ORAL ACTIVE 12/01/2024 [id number] INES LUNAAMIN E 2023 45 [facility] AZITHROMYCI N 250MG TAB TAKE ONE TABLET BY MOUTH THREE TIMES A WEEK FOR COPD WITH CHRONIC COUGH ORAL DISCONT INUED 10/02/2023 [id number] 4 INES LUNA NJAMIN E 2022 45 [facility] CHOLECALCIF NENA 25MCG (1,000UNIT) TAB TAKE ONE TABLET BY MOUTH DAILY ORAL ACTIVE JAYENA 2020 [place] [facility]) FLUTICASONE 250MCG/SALM ETEROL 50MCG INHL,ORAL,D ISKUS,60 INHALE 1 PUFF BY INHALATI ON TWICE A DAY *RINSE MOUTH AFTER EACH USE* RESPIR ATORY (INHAL ATION) ACTIVE 08/28/2024 [id number] JAYENA 2023 3 [place] [facility]) FLUTICASONE 250MCG/SALM ETEROL 50MCG INHL,ORAL,D ISKUS,60 INHALE 1 PUFF BY INHALATI ON TWICE A DAY *RINSE MOUTH AFTER EACH USE* RESPIR ATORY (INHAL ATION) DISCONT INUED 10/23/2023 [id number] 4 ENA THOMPSON 2022 3 [place] [facility] MAGNESIUM OXIDE CAP,ORAL TAKE 250MG BY MOUTH DAILY ORAL ACTIVE JAYENA 2020 [place] [facility]) MULTIVITAMI NS CAP/TAB TAKE ONE TABLET BY MOUTH EVERY DAY ORAL ACTIVE JAYENA 2020 [place] [facility]) SENNOSIDES 8.6MG TAB TAKE ONE TABLET BY MOUTH TWICE A DAY ORAL ACTIVE ENA THOMPSON 2022 [place] [facility]) TAMSULOSIN HCL 0.4MG CAP TAKE ONE CAPSULE BY MOUTH DAILY ORAL ACTIVE 05/06/2024 [id number] 4 ENA THOMPSON 2023 90 [place] ([facility]) TAMSULOSIN HCL 0.4MG CAP TAKE ONE CAPSULE BY MOUTH DAILY ORAL DISCONT INUED 05/03/2023 [id number] 3 ENA THOMPSON 2022 90 [place] [facility]) TIOTROPIUM 18MCG CAP,INHL,30 INHALE ONE CAPSULE IN INHALER BY INHALATI ON EVERY DAY TO PREVENT TROUBLE BREATHIN G RESPIR ATORY (INHAL ATION) ACTIVE 10/02/2024 [id number] 4 INES LUNA NJAMIN E 2023 1 [facility] TIOTROPIUM 18MCG CAP,INHL,30 INHALE ONE CAPSULE IN INHALER BY INHALATI ON EVERY DAY TO PREVENT TROUBLE BREATHIN G RESPIR ATORY (INHAL ATION) DISCONT INUED 10/02/2023 [id number] 4 JULIANNE NUR 2022 1 [facility] Immunizations Combined list of available immunizations from the Department of Defense and Veterans Affairs facilities. Immunization Series Date Given Administered By Site Reaction Lot Number CVX Code Drug Seed Expert Status Comments Source COVID-19 (PFIZER), MRNA, LNP-S, BIVALENT, PF, 30 MCG/0.3 ML DOSE 2021 300 complet ed [facility] INFLUENZA, INJECTABLE, MDCK, PRESERVATIVE FREE, QUADRIVALENT 2021 171 complet ed [facility] INFLUENZA, INJECTABLE, QUADRIVALENT 2021 158 complet ed [facility] COVID-19 (MODERNA), MRNA, LNP-S, PF, 100 MCG/0.5ML DOSE OR 50 MCG/0.25ML DOSE 2 2021 207 complet ed [facility] ZOSTER RECOMBINANT 2 2020 187 complet ed [place] [facility] INFLUENZA, INJECTABLE, MDCK, QUADRIVALENT, PRESERVATIVE 2020 186 complet ed [facility] INFLUENZA, UNSPECIFIED FORMULATION 2020 88 complet ed [facility] TDAP 2020 115 complet ed [place] [facility] ZOSTER RECOMBINANT 1 2020 187 complet ed [place] ([facility]) COVID-19 (JEFF), VECTOR-NR, RS-AD26, PF, 0.5 ML 1 2020 212 complet ed [facility] INFLUENZA, INJECTABLE, QUADRIVALENT, PRESERVATIVE FREE 2019 150 complet ed [facility] INFLUENZA VACCINE, QUADRIVALENT, ADJUVANTED 2019 205 complet ed [facility] INFLUENZA, UNSPECIFIED FORMULATION 2019 88 complet ed [facility] PNEUMOCOCCAL CONJUGATE PCV 13 2015 133 complet ed [employer], [id number], 10/17 [place] [facility]) ZOSTER LIVE 2015 121 complet ed [employer] [id number], 7 [place] [facility]) PNEUMOCOCCAL CONJUGATE PCV 13 2015 133 complet ed [facility] ZOSTER LIVE 2015 121 complet ed [facility] PNEUMOCOCCAL POLYSACCHARID E PPV23 2010 33 complet ed [facility] TDAP 2009 115 complet ed [facility] Results Combined list of recent chemistry, hematology and other laboratory results from Department of Defense and Veterans Affairs, ranging from 15 months to all on record, depending upon the facility. Order Name Results Value Reference Range Date Interpretation Specimen Comments Source AST/SGOT ASPARTATE AMINOTRANS FERASE [ENZYMATIC ACTIVITY/V OLUME] IN SERUM OR PLASMA 29 U/L 11 - 34 11/12 Specimen Type: PLASMA No comment entered. Ordering Provider: CLARI THOMPSON Report Released Date/Time: Oct 16, 2023 04:45 PM Reporting Lab: [facility] [address] Performing Lab: [facility] [phone] [place] [address] ([facility]) ALT/SGPT ALANINE AMINOTRANS FERASE [ENZYMATIC ACTIVITY/V OLUME] IN SERUM OR PLASMA 24 U/L <44 - 44 11/12 Specimen Type: PLASMA No comment entered. Ordering Provider: CLARI THOMPSON Report Released Date/Time: Oct 16, 2023 04:45 PM Reporting Lab: [facility] [address] Performing Lab: [facility] [phone] [place] [address] ([facility]) BILIRUBI N TOTAL W/REFLEX TO DIRECT BILIRUBIN. TOTAL [MASS/VOLU ME] IN SERUM OR PLASMA 1.0 mg/dL 0.2 - 1.2 11/12 Specimen Type: PLASMA No comment entered. Ordering Provider: CLARI THOMPSON Report Released Date/Time: Oct 16, 2023 04:45 PM Reporting Lab: [facility] [address] Performing Lab: [facility] [address] [place] ([facility] ALKALINE PHOSPHAT ASE ALKALINE PHOSPHATAS E [ENZYMATIC ACTIVITY/V OLUME] IN SERUM OR PLASMA 57 U/L 40 - 150 11/12 Specimen Type: PLASMA No comment entered. Ordering Provider: CLARI THOMPSON Report Released Date/Time: Oct 16, 2023 04:45 PM Reporting Lab: [facility] [address] Performing Lab: [place] [address] [place] ([facility]) GAMMA GTP GAMMA GLUTAMYL TRANSFERAS E [ENZYMATIC ACTIVITY/V OLUME] IN SERUM OR PLASMA 47 U/L <54 - 54 11/12 Specimen Type: PLASMA No comment entered. Ordering Provider: CLARI THOMPSON Report Released Date/Time: Oct 16, 2023 04:45 PM Reporting Lab: [facility] [address] Performing Lab: [place] [address] [place] ([facility]) ANTI-HEP C(EIA) HEPATITIS C VIRUS AB [PRESENCE] IN SERUM NEGATIVE 11/12 Specimen Type: SERUM No comment entered. Ordering Provider: CLARI THOMPSON Report Released Date/Time: Oct 16, 2023 04:45 PM Reporting Lab: [facility] [address] Performing Lab: [facility] [phone] [place] [address] ([facility]) BASIC METABOLI C PANEL+MG CREATININE [MASS/VOLU ME] IN SERUM OR PLASMA 0.9 mg/dL 0.7 - 1.2 11/12 Specimen Type: PLASMA No comment entered. Ordering Provider: CLARI THOMPSON Report Released Date/Time: Oct 16, 2023 04:45 PM Reporting Lab: [facility] [address] Performing Lab: [facility] [phone] [place] [address] ([facility]) BASIC METABOLI C PANEL+MG UREA NITROGEN [MASS/VOLU ME] IN SERUM OR PLASMA 11 mg/dL 8 - 26 11/12 Specimen Type: PLASMA No comment entered. Ordering Provider: CLARI THOMPSON Report Released Date/Time: Oct 16, 2023 04:45 PM Reporting Lab: [facility] [address] Performing Lab: [facility] [phone] [place] ([facility]) BASIC METABOLI C PANEL+MG GLUCOSE [MASS/VOLU ME] IN SERUM OR PLASMA 93 mg/dL 70 - 100 11/12 Specimen Type: PLASMA No comment entered. Ordering Provider: CLARI THOMPSON Report Released Date/Time: Oct 16, 2023 04:45 PM Reporting Lab: [place] [phone] Performing Lab: [place] [address] [place] [address] ([facility]) BASIC METABOLI C PANEL+MG SODIUM [MOLES/VOL UME] IN SERUM OR PLASMA 133 mmol/L 136 - 145 11/12 L Specimen Type: PLASMA No comment entered. Ordering Provider: CLARI THOMPSON Report Released Date/Time: Oct 16, 2023 04:45 PM Reporting Lab: [place] [phone] Performing Lab: [place] [address] [place] [address] ([facility]) BASIC METABOLI C PANEL+MG POTASSIUM [MOLES/VOL UME] IN SERUM OR PLASMA 4.1 mmol/L 3.5 - 5.1 11/12 Specimen Type: PLASMA No comment entered. Ordering Provider: CLARI THOMPSON Report Released Date/Time: Oct 16, 2023 04:45 PM Reporting Lab: [facility] [address] Performing Lab: [facility] [address] [place] ([facility]) BASIC METABOLI C PANEL+MG CHLORIDE [MOLES/VOL UME] IN SERUM OR PLASMA 101 mmol/L 98 - 107 11/12 Specimen Type: PLASMA No comment entered. Ordering Provider: CLARI THOMPSON Report Released Date/Time: Oct 16, 2023 04:45 PM Reporting Lab: [facility] [address] Performing Lab: [address] ([facility]) BASIC METABOLI C PANEL+MG CARBON DIOXIDE, TOTAL [MOLES/VOL UME] IN SERUM OR PLASMA 25 mmol/L 22 - 29 11/12 Specimen Type: PLASMA No comment entered. Ordering Provider: CLARI THOMPSON Report Released Date/Time: Oct 16, 2023 04:45 PM Reporting Lab: [facility] [address] Performing Lab: [facility] [address] [place] ([facility]) BASIC METABOLI C PANEL+MG CALCIUM [MASS/VOLU ME] IN SERUM OR PLASMA 9.3 mg/dL 8.4 - 10.2 11/12 Specimen Type: PLASMA No comment entered. Ordering Provider: CLARI THOMPSON Report Released Date/Time: Oct 16, 2023 04:45 PM Reporting Lab: [facility] [address] Performing Lab: [facility] [address] [place] ([facility] BASIC METABOLI C PANEL+MG MAGNESIUM [MASS/VOLU ME] IN SERUM OR PLASMA 1.9 mg/dL 1.6 - 2.6 11/12 Specimen Type: PLASMA No comment entered. Ordering Provider: CLARI THOMPSON Report Released Date/Time: Oct 16, 2023 04:45 PM Reporting Lab: [facility] [address] Performing Lab: [facility] [address] [place] ([facility]) BASIC METABOLI C PANEL+MG ANION GAP IN SERUM OR PLASMA 7 mmol/L 5 - 15 11/12 Specimen Type: PLASMA No comment entered. Ordering Provider: CLARI THOMPSON Report Released Date/Time: Oct 16, 2023 04:45 PM Reporting Lab: [facility] [address] Performing Lab: [facility] [address] [place] ([facility] BASIC METABOLI C PANEL+MG GLOMERULAR FILTRATION RATE/1.73 SQ M.PREDICTE D [VOLUME RATE/AREA] IN SERUM, PLASMA OR BLOOD BY CREATININE -BASED FORMULA (CKD-EPI 2020) 88 60 11/12 Specimen Type: PLASMA No comment entered. Ordering Provider: CLARI THOMPSON Report Released Date/Time: Oct 16, 2023 04:45 PM Reporting Lab: [facility] [address] Performing Lab: [facility] [address] [place] ([facility]) ANTI-HAV IGG & IGM HEPATITIS A VIRUS IGM AB [PRESENCE] IN SERUM NEGATIVE 11/12 Specimen Type: SERUM No comment entered. Ordering Provider: CLARI THOMPSON Report Released Date/Time: Oct 16, 2023 04:45 PM Reporting Lab: [facility] [address] Performing Lab: [facility] [phone] [place] [address] ([facility]) ANTI-HAV IGG & IGM HEPATITIS A VIRUS IGG AB [PRESENCE] IN SERUM NEGATIVE 11/12 Specimen Type: SERUM No comment entered. Ordering Provider: CLARI THOMPSON Report Released Date/Time: Oct 16, 2023 04:45 PM Reporting Lab: [address] Performing Lab: [address] ([facility]) HBsAg HEPATITIS B VIRUS SURFACE AG [PRESENCE] IN SERUM NEGATIVE 11/12 Specimen Type: SERUM No comment entered. Ordering Provider: CLARI THOMPSON Report Released Date/Time: Oct 16, 2023 04:45 PM Reporting Lab: [facility] [address] Performing Lab: [facility] [phone] [place] [address] ([facility]) ANTI-HBc TOTAL W/RELEX TO IGM HEPATITIS B VIRUS CORE AB [PRESENCE] IN SERUM NEGATIVE 11/12 Specimen Type: SERUM No comment entered. Ordering Provider: CLARI THOMPSON Report Released Date/Time: Oct 16, 2023 04:45 PM Reporting Lab: [facility] [phone] Performing Lab: [facility] [address] [place] ([facility]) Vital Signs Combined list of inpatient and outpatient Vital Signs from Department of Defense and Veterans Affairs, ranging from 12 months to all on record, depending upon the facility. Vital Sign Value Date Comments Source SYSTOLIC BLOOD PRESSURE 118 10/09/2023 10:38:02 [place] ([facility]) DIASTOLIC BLOOD PRESSURE 63 10/09/2023 10:38:02 [place] ([facility]) PULSE OXIMETRY 94 10/09/2023 10:38:02 [place] ([facility] WEIGHT 181.1 10/09/2023 10:38:02 [place] ([facility] BMI 32kg/m2 10/09/2023 10:38:02 [place] ([facility]) PAIN 0 10/09/2023 10:38:02 [place] [facility]) HEIGHT 63.5 10/09/2023 10:38:02 [place] ([facility]) TEMPERATURE 98.4 10/09/2023 10:38:02 [facility] [facility] ([facility]) PULSE 77 10/09/2023 10:38:02 [place] [facility]) RESPIRATION 16 10/09/2023 10:38:02 [place] ([facility]) SYSTOLIC BLOOD PRESSURE 147 06/25/2023 11:36:06 [place] ([facility]) DIASTOLIC BLOOD PRESSURE 69 06/25/2023 11:36:06 [place] ([facility]) PULSE OXIMETRY 94 06/25/2023 11:36:06 [place] ([facility]) WEIGHT 182.9 06/25/2023 11:36:06 [place] [facility]) BMI 32kg/m2 06/25/2023 11:36:06 [place] [facility]) PAIN 0 06/25/2023 11:36:06 [place] [facility]) TEMPERATURE 98.9 06/25/2023 11:36:06 [facility] ([facility]) PULSE 68 06/25/2023 11:36:06 [place] ([facility]) RESPIRATION 18 06/25/2023 11:36:06 [facility] [facility] ([facility]) Encounters Combined list of: 1) Encounters from Department of [facility] Affairs facilities going back up to thelast 18 months. 2) Encounters from the Department of Defense facilities going back up to 280 months. Location Location Details Encounter Type Encounter Number Reason For Visit Attending Provider ADM Date DC Date Status Disposition Source [place] [facility] Outpatient Encounter [id number] CRYSTAL OSBORNE 10/18 [facility] [place] [facility] Outpatient Encounter [id number] 10/22 [facility] [place] [facility] OFFICE O/P EST MOD 30-39 MIN [id number] Diagnos is: ICD-10- CM Z00.00 Encntr for general adult medical exam w/o abnorma l finding s
GERTRUDIS THOMPSON 10/22 [place] ([facility]) [facility] Outpatient Encounter [id number] GERTRUDIS THOMPSON [facility] [place] [facility] Outpatient Encounter [id number] Berkley FINLEY 05/06 [facility] [place] [facility] Outpatient Encounter [id number] 06/10 [facility] [place] [facility] Outpatient Encounter [id number] GERTRUDIS THOMPSON 06/11 [facility] Outpatient Encounter [id number] Aquiles SEGOVIA 06/18 [facility] ([facility] OFFICE O/P EST LOW 20 MIN [id number] Diagnos is: ICD-10- CM D48.5 Neoplas m of uncerta in behavio r of skin
GERTRUDIS THOMPSON 06/24 [place] [facility] [place] ([facility] UNLISTED SPEC DERM SVC/PX [id number] Diagnos is: ICD-10- CM D48.5 Neoplas m of uncerta in behavio r of skin
JULIANNE STERN 06/24 [place] ([facility]) [facility] Outpatient Encounter [id number] Diagnos is: ICD-10- CM D48.5 Neoplas m of uncerta in behavio r of skin
CHUSID,LANDON ECCA L 06/24 [facility] OFFICE O/P EST MOD 30 MIN [id number] Diagnos is: ICD-10- CM D48.5 Neoplas m of uncerta in behavio r of skin
SOUTOR,CAR OL A 07[facility] Outpatient Encounter [id number] VERONICA KARIMI L 07/06 [facility] Outpatient Encounter [id number] Diagnos is: ICD-10- CM C44.41 Basal cell carcino ma of skin of scalp and neck
TAE HELLER 07/06 [facility] Outpatient Encounter [id number] 07/14 [facility] ([facility] OFFICE O/P EST HI 40 MIN [id number] Diagnos is: ICD-10- CM Z00.00 Encntr for general adult medical exam w/o abnorma l finding s
GERTRUDIS THOMPSON 10/08 [facility] ([facility] Social History Combined list of available smoking, tobacco, and other social history from Department of Defense and Veterans Affairs facilities. Social History Type Response Date Comment Sourc e Tobacco smoking status NHIS VA-TOBACCO FORMER USER 10/09/2023 [place] ([facility] History of tobacco use [place]-TOBACCO QUIT 5 TO < 15 YRS 10/09/2023 [place] ([facility] History of tobacco use VA-TOBACCO FORMER USER 10/22/2022 [place] ([facility] History of tobacco use VA-TOBACCO FORMER USER 10/11/2021 [place] ([facility] History of tobacco use VA-TOBACCO FORMER USER 10/11/2020 [place] ([facility] History of tobacco use [place]-TOBACCO QUIT 1 TO < 5 YRS 09/13/2019 [place] ([facility] History of tobacco use VA-TOBACCO QUIT 5 TO < 15 YRS 10/09/2017 [place] ([facility] History of tobacco use CURRENT TOBACCO USER 10/08/2017 [place] ([facility] History of tobacco use FORMER TOBACCO US ER 7Y OR GREATER 10/02/2016 [place] ([facility]) History of tobacco use CURRENT TOBACCO USER 09/21/2015 [place] ([facility]
--- OUTSIDE RECORDS SUMMARY | 2023-12-20 03:49 | XMS_ITS | Encounter Summary ---
Author Name [facility] Organization [facility] Address [address] [place] [address] Care Team Providers Care Correctional Officer Chief Name Role Phone RAI THOMPSON Primary Care [...] SUPPL EMENT Mar 03, 2015 PLAN N [id number] [phone] RADHA SIMON PATIENT MEDICARE (WNR) MEDICARE (M) PART B Mar 03, 2015 PART B [id number] RADHA SIMON PATIENT MEDICARE (WNR) MEDICARE (M) PART A Jan 01, 2011 PART A [id number] RADHA SIMON PATIENT Selected Encounter This section includes the information on record at [facility] for the Encounter. Date/Time Encounter Type Encounter Description Reason Provider Source Oct 09, 2023 10:30 AM OFFICE O/P EST HI 40 MIN PRIMARY CARE/MEDICINE ICD-10-CM Z00.00 Encntr for general adult medical exam w/o abnormal findings RAI THOMPSON IHE Encounter Template Text not used by [facility] Assessments - Encounter Diagnoses This section includes the primary and secondary diagnoses documented for the Encounter. Date/Time Primary/Secondary Diagnosis Diagnosis Name Provider Source Oct 09, 2023 03:21 PM PRIMARY Encntr for general adult medical exam w/o abnormal findings JAYRAI Brown [facility] ([facility]) Oct 09, 2023 03:21 PM SECONDARY Benign prostatic hyperplasia with lower urinary tract symp JAYRAI Brown [facility] ([facility]) Oct 09, 2023 03:21 PM SECONDARY Chronic obstructive pulmonary disease, unspecified JAYRAI Brown [facility] ([facility]) Oct 09, 2023 03:21 PM SECONDARY Malignant neoplasm of prostate JAYRAI Brown [facility] ([facility]) Plan of Treatment: Future Appointments (+ 6 months) and Future Tests (+/- 45 days) The Plan of Treatment section includes future care activities for the patient from all [place] treatmentfacilities. This section includes future appointments and future orders which are active, pending or scheduled. Future Appointments This section includes appointments that were scheduled to occur 6 months from the date of the Encounter, up to a maximum of 20 appointments. The data comes from all [place] treatment facilities. Appointment Date/Time Appointment Type Appointme nt Facility Name Oct 30, 2023 02:30 PM AMBULATORY - NONE [facility] ([facility]) Nov 13, 2023 10:30 AM AMBULATORY - NONE [facility] ([facility]) Lab Results: +/- 30 days of the encounter This section includes the Chemistry and Hematology Lab Results on record with [facility] for the patient. Radiology Reports and Pathology Reports are provided separately, in subsequent sections. Lab Results This section contains the Chemistry/Hematology Results that were resulted 30 days before or 30 daysafter the date of the Encounter. Date/Time Source Result Type Result - Unit Interpretation Reference Range Comment Oct 09, 2023 11:20 AM [facility] ([facility]) HEMOGLOBIN A1C Specimen Type: BLOOD Comment: Values obtained from A1C measurements can vary. For typical A1C assays, a reported value of 7.0 could actually be between 6.7 and 7.3 if measured by a reference method. A reported value of 9.0 could actually be between 8.7 and 9.3. Ref: http://www.ngs p.org/CAPdata. asp Ordering Provider: RAI THOMPSON Report Released Date/Time: Oct 09, 2023 11:07 AM Reporting Lab: [facility] [id number] Performing Lab: [facility] [id number] HEMOGLOBIN A1C 5.5 4.0-6.0 Oct 09, 2023 11:20 AM [facility] ([facility]) COMPREHENSIVE METABOLIC PANEL+MG Specimen Type: PLASMA No comment entered. Ordering Provider: RAI THOMPSON Report Released Date/Time: Oct 09, 2023 11:07 AM Reporting Lab: [facility] [id number] Performing Lab: [facility] [phone] CREATININE 0.9 mg/dL 0.7-1.2 UREA NITROGEN 7 mg/dL L 8-26 GLUCOSE 91 mg/dL 70-100 SODIUM 128 mmol/L L 136-145 POTASSIUM 4.3 mmol/L 3.5-5.1 CHLORIDE 95 mmol/L L 98-107 CO2 26 mmol/L 22-29 CALCIUM 9.3 mg/dL 8.4-10.2 PROTEIN,TOTAL 6.8 g/dL 6.4-8.3 ALBUMIN 4.2 g/dL 3.5-5.2 BILIRUBIN, TOTAL 1.4 mg/dL H 0.2-1.2 MAGNESIUM 1.9 mg/dL 1.6-2.6 ANION GAP 7 mmol/L 5-15 ALKALINE PHOSPHATASE 101 U/L 40-150 ALT/SGPT 207 U/L H <44 AST/SGOT 117 U/L H 11-34 .CREAT EGFR(CKD-EPI) 88 >60 DIR. BILIRUBIN 0.7 mg/dL H <0.5 Oct 09, 2023 11:20 AM [facility] ([facility]) LIPID PANEL,NON-FASTING Specimen Type: PLASMA No comment entered. Ordering Provider: RAI THOMPSON Report Released Date/Time: Oct 09, 2023 11:07 AM Reporting Lab: [facility] [id number] Performing Lab: [facility] [phone] CHOLESTEROL 135 mg/dL <199 .HDL 48 mg/dL >40 LDL CALCULATION 74 mg/dL <99 VLDL CALCULATION 13 mg/dL <29 NON HDL CHOLESTEROL 87 mg/dL <129 TRIG(NON FASTING) 67 mg/dL <149 Oct 09, 2023 11:20 AM [facility] ([facility]) TSH W/REFLEX TO FREE T4 Specimen Type: PLASMA No comment entered. Ordering Provider: RAI THOMPSON Report Released Date/Time: Oct 09, 2023 11:07 AM Reporting Lab: [facility] [id number] Performing Lab: [facility] [id number] TSH 2.31 u[IU]/mL 0.35-4.94 Oct 09, 2023 11:20 AM [facility] ([facility]) PSA Specimen Type: SERUM No comment entered. Ordering Provider: RAI THOMPSON Report Released Date/Time: Oct 09, 2023 11:07 AM Reporting Lab: [facility] [id number] Performing Lab: [facility] [id number] PSA 2.76 ng/mL <4.00 Oct 09, 2023 11:20 AM [facility]) CBC Specimen Type: BLOOD No comment entered. Ordering Provider: RIA THOMPSON Report Released Date/Time: Oct 09, 2023 11:07 AM Reporting Lab: [facility] [id number] Performing Lab: [facility] [phone] WBC 8.07 10*3/uL 4.0-11.0 RBC 4.53 10*6/uL L 4.6-6.2 HGB 15.2 g/dL 13.5-17.9 HCT 43.0 41-54 MCV 94.9 fL 80-100 MCH 33.6 pg H 27-33 MCHC 35.3 g/dL 32.0-37.5 PLT 190 10*3/uL 150-400 MPV 10.6 fL H 7.4-10.4 RDW 11.7 11.5-14.5 Vital Signs: All taken on the encounter date This section contains inpatient and outpatient Vital Signs collected on the date of the Encounter. Date/Time Temperature Pulse Blood Pressure Respiratory Rate SP02 Pain Height Weight Body Mass Index Source Oct 09, 2023 10:38 AM 98.4 77 118/63 16 94 0 63.5 181.1 32 [facility] ([facility]) Social History: Smoking Status (Most current) and Tobacco Use (All prior to encounter date) This section includes the most current, and the historical, smoking and tobacco- related health factors from the [facility] facility where the Encounter took place. Current Smoking Status This section includes the most current smoking, or tobacco-related health factor, from the [facility] facility where the Encounter took place. Date/Time Current Smoking Status Comment Facil ity Oct 09, 2023 10:30 AM [facility]-TO[facility]ACCO FORMER USER [facility] ([facility]) Tobacco Use History This section includes a history of the smoking, or tobacco-related health factors, that were collected on or before the date of the Encounter. The data comes from the ME facility where the Encounter took place. Date/Time Smoking Status/Tobacco Use Comment F acility Oct 09, 2023 10:30 AM VA-TOBACCO QUIT 5 TO < 15 YRS [facility] ([facility]) Oct 22, 2022 10:00 AM VA-TOBACCO FORMER USER [facility] ([facility]) Oct 22, 2022 10:00 AM VA-TOBACCO QUIT 5 TO < 15 YRS [facility] ([facility]) Oct 11, 2021 10:30 AM VA-TOBACCO FORMER USER [facility] ([facility]) Oct 11, 2021 10:30 AM VA-TOBACCO QUIT 5 TO < 15 YRS [facility] ([facility]) Oct 11, 2020 10:30 AM VA-TOBACCO FORMER USER [facility] ([facility]) Oct 11, 2020 10:30 AM VA-TOBACCO QUIT 5 TO < 15 YRS [facility] ([facility]) Sep 13, 2019 08:25 AM VA-TOBACCO FORMER USER [facility] ([facility]) Sep 13, 2019 08:25 AM VA-TOBACCO QUIT 1 TO < 5 YRS [facility] ([facility]) Oct 09, 2017 02:36 PM VA-TOBACCO FORMER USER [facility] ([facility]) Oct 09, 2017 02:36 PM VA-TOBACCO QUIT 5 TO < 15 YRS [facility] ([facility]) Oct 08, 2017 04:05 PM CURRENT TOBACCO USER [facility] ([facility]) Oct 02, 2016 01:35 PM FORMER TOBACCO USER 7Y OR GREATE R [facility] ([facility]) Sep 21, 2015 08:10 AM CURRENT TOBACCO USER [facility] ([facility]) Radiology Reports: +/- 30 days of [...] the Encounter. The data comes from all [place] treatment facilities. Date/Time Radiology Report Provider Source Oct 30, 2023 02:06 PM US RIGHT UPPER MARISSA ODALYS (P): RADHA SIMON [id number] -1945 M Exm Date: OCT 30, 2023@14:06 Req Phys: RAI THOMPSON Pat Loc: [facility] (Req'g Loc Img Loc: [facility] Service: [place] [address] (Case [id number] COMPLETE) US ECHOGRAM ABDOMEN LTD (US Detailed) CPT:05892 Proc Modifiers : RIGHT Reason for Study: Elevated LFTs Clinical History: IS NOT under investigation for COVID-19 or is COVID-19 negative Elevated LFTs Responsible provider name and phone number to notify for critical findings if other than user placing the order and pager listed below: User placing orders pager: LAST CREATININE [phone] (10/09/23) Report Status: Verified Date Reported: OCT 30, 2023 Date Verified: OCT 30, 2023 Scrap Hoist Operator E-Sig:/ES/RC ARCHER DO Report: EXAM: Ultrasound Abdomen Limited HISTORY: Elevated LFTs COMPARISON: CT chest 06/11/2023 TECHNIQUE: Sonographic evaluation of the right upper quadrant was performed. FINDINGS: RIGHT KIDNEY: The right kidney measures 10.5 cm. There is no hydronephrosis or mass. Color Doppler appears normal. LIVER: Left lobe of the liver is not well visualized due to poor beam penetration. Parenchymal echogenicity may be slightly increased. No mass or intrahepatic biliary dilation. There is flow towards the liver in the Main Portal Vein. GALLBLADDER: Cholelithiasis. Gallbladder wall thickness is upper limits of normal measuring 3 mm. No pericholecystic fluid. Negative sonographic Cooper's sign. COMMON DUCT: measures 3 mm. PANCREAS: Visualized portions of the pancreatic head and body are unremarkable. The pancreatic tail is obscured by bowel gas. ASCITES: No ascites in the right upper quadrant. Impression: 1. Perhaps slightly increased hepatic echogenicity suggesting a degree of steatosis. However, this is not supported on low-dose CT chest of 06/11/2023. 2. Cholelithiasis. I, Rc Archer, have reviewed the images and report. Primary Interpreting Staff: RC ARCHER DO, RADIOLOGIST (Scrap Hoist Operator) Primary Interpreting Resident: MIKEY URRUTIA MD, SENIOR INFORMATION SECURITY CONSULTANT /RC [facility] Encounter Notes: All associated encounter notes This section contains the clinical notes associated to the Encounter. Date/Time Encounter Note(s) Provider Source Oct 15, 2023 09:58 AM ADDENDUM: LOCAL TITLE: Addendum STANDARD TITLE: ADDENDUM DATE OF NOTE: OCT 15, 2023@09:58:24 ENTRY DATE: OCT 15, 2023@09:58:25 AUTHOR: ELIZABETH BELL COSIGNER: URGENCY: STATUS: COMPLETED Called . Reviewed the lab results and recommendations. Marietta denies any alcohol use and is not having any abdominal pain. agrees to labs and ultrasound testing. Message to PCP to order these. /alma/ ELIZABETH BELL RN, BSN Staff Nurse Signed: 10/15/2023 09:59 Receipt Acknowledged By: 10/16/2023 16:40 /alma/ RAI THOMPSON MD PHYSICIAN --- Original Document --- 10/11/23 PATIENT CONTACT NOTE: Please contact with the following test results and recommendations: - Electrolytes including sodium and potassium SODIUM 128 L (10/09/23) (normal is 137-144) POTASSIUM 4.3 (10/09/23) (normal is 3.5-5.0) CHLORIDE 95 L (10/09/23) (normal is 98-107) CO2 26 (10/09/23) (normal is 22-29) UREA NITROGEN 7 L (10/09/23) (normal Male is 8-26) CREATININE 0.9 (10/09/23) (normal Male is 0.7-1.2) GLUCOSE 91 (10/09/23) (normal is 70-105) CALCIUM 9.3 (10/09/23) (normal is 8.4-10.2) MAGNESIUM 1.9 (10/09/23) (normal is 1.6-2.6) CREATININE EGFR (CKD-EPI) 10/09/2023@1120 88 (normal is >/=60) - Liver function Tests AST/SGOT 117 H (10/09/23) (normal is 5-34) ALT/SGPT 207 H (10/09/23) (normal is </= 55) ALK PHOSPHATASE 101 (10/09/23) (normal is 40-150) ALBUMIN 4.2 (10/09/23) (normal is 3.5-5.2) BILIRUBIN, TOTAL 1.4 H (10/09/23) (normal is 0.3-1.2) - Prostate Test: PSA 2.76 (10/09/23) (normal is </= 3.99) Comments: I have reviewed your most recent test results. Most of your labs are in the normal range. Please refer to the automated letter that you will receive from [facility] for a full set of labs. Your sodium and chloride (body chemistry test) are below the normal range. We do not have you on any medications currently that would cause this to occur. Your PSA test has remained stable. Your total bilirubin, ALT, and AST (liver function tests) are quite elevated. We have not seen this in the past. Please avoid any alcohol as this can irritate the liver. Your low-dose CT scan of your lung did show that you have some cholelithiasis (gallstones) please let my nurse know if you are having any problems with abdominal pain or discomfort as this may be a cause of this enzyme increase. I would like to get you set up to return for additional lab work. I would also like to get a right upper quadrant ultrasound to get your liver evaluated. If you are not having any abdominal symptoms, this won't need to be urgent. The [facility] does have an quality control technician that comes to the office on . The current schedule opening is at the end of November but we may be able to get you in sooner if there is cancellations. Please let my nurse know if you are willing to come in for blood work and ultrasound so appropriate orders can be placed. Thanks Provider order (if agrees) RTC for lab including liver function tests (ALT, AST, Bili, Alk phos, GGT), basic metabolic panel, Hepatitis C josh, Hepatitis A and Hepatitis B panels. Provider order (if agrees) right upper quadrant ultrasound for elevated LFTs /alma/ RAI [place]OMPSON MD PHYSICIAN Signed: 10/11/2023 14:43 Receipt Acknowledged By: 10/15/2023 09:58 /alma/ ELIZABETH BELL RN, BSN Staff Nurse for [facility] 10/16/2023 ADDENDUM STATUS: UNSIGNED You may not VIEW this UNSIGNED Addendum. ELIZABETH BELL ([facility]) Oct 11, 2023 02:40 PM REPORT OF CONTACT: LOCAL TITLE: PATIENT CONTACT NOTE STANDARD TITLE: REPORT OF CONTACT DATE OF NOTE: OCT 11, 2023@14:40 ENTRY DATE: OCT 11, 2023@14:40:05 AUTHOR: RAI THOMPSON EXP COSIGNER: URGENCY: STATUS: COMPLETED PATIENT CONTACT NOTE Has ADDENDA Please contact Marietta with the following test results and recommendations: - Electrolytes including sodium and potassium SODIUM 128 L (10/09/23) (normal is 137-144) POTASSIUM 4.3 (10/09/23) (normal is 3.5-5.0) CHLORIDE 95 L (10/09/23) (normal is 98-107) CO2 26 (10/09/23) (normal is 22-29) UREA NITROGEN 7 L (10/09/23) (normal Male is 8-26) CREATININE 0.9 (10/09/23) (normal Male is 0.7-1.2) GLUCOSE 91 (10/09/23) (normal is 70-105) CALCIUM 9.3 (10/09/23) (normal is 8.4-10.2) MAGNESIUM 1.9 (10/09/23) (normal is 1.6-2.6) CREATININE EGFR (CKD-EPI) 10/09/2023@1120 88 (normal is >/=60) - Liver function Tests AST/SGOT 117 H (10/09/23) (normal is 5-34) ALT/SGPT 207 H (10/09/23) (normal is </= 55) ALK PHOSPHATASE 101 (10/09/23) (normal is 40-150) ALBUMIN 4.2 (10/09/23) (normal is 3.5-5.2) BILIRUBIN, TOTAL 1.4 H (10/09/23) (normal is 0.3-1.2) - Prostate Test: PSA 2.76 (10/09/23) (normal is </= 3.99) Comments: I have reviewed your most recent test results. Most of your labs are in the normal range. Please refer to the automated letter that you will receive from [facility] for a full set of labs. Your sodium and chloride (body chemistry test) are below the normal range. We do not have you on any medications currently that would cause this to occur. Your PSA test has remained stable. Your total bilirubin, ALT, and AST (liver function tests) are quite elevated. We have not seen this in the past. Please avoid any alcohol as this can irritate the liver. Your low-dose CT scan of your lung did show that you have some cholelithiasis (gallstones) please let my nurse know if you are having any problems with abdominal pain or discomfort as this may be a cause of this enzyme increase. I would like to get you set up to return for additional lab work. I would also like to get a right upper quadrant ultrasound to get your liver evaluated. If you are not having any abdominal symptoms, this won't need to be urgent. The [facility] does have an quality control technician that comes to the office on . The current schedule opening is at the end of November but we may be able to get you in sooner if there is cancellations. Please let my nurse know if you are willing to come in for blood work and ultrasound so appropriate orders can be placed. Thanks Provider order (if agrees) RTC for lab including liver function tests (ALT, AST, Bili, Alk phos, GGT), basic metabolic panel, Hepatitis C josh, Hepatitis A and Hepatitis B panels. Provider order (if agrees) right upper quadrant ultrasound for elevated LFTs /alma/ RAI THOMPSON MD PHYSICIAN Signed: 10/11/2023 14:43 Receipt Acknowledged By: 10/15/2023 09:58 /alma/ ELIZABETH BELL RN, BSN Staff Nurse for [facility] 10/15/2023 ADDENDUM STATUS: COMPLETED Called . Reviewed the lab results and recommendations. Marietta denies any alcohol use and is not having any abdominal pain. Marietta agrees to labs and ultrasound testing. Message to PCP to order these. /jarek BELL RN, BSN Staff Nurse Signed: 10/15/2023 09:59 Receipt Acknowledged By: 10/16/2023 16:40 /jarek TH[place] MD PHYSICIAN 10/16/2023 ADDENDUM STATUS: COMPLETED Lab work and ordered for 4 weeks and ultrasound ordered for next available mid December. Requested for cancellation list. /jarek THOMPS[place] MD PHYSICIAN Signed: 10/16/2023 16:45 RAI THOMPSON ([facility]) Oct 11, 2023 02:34 PM LETTERS: LOCAL TITLE: FOLLOW UP RESULTS LETTER STANDARD TITLE: LETTERS DATE OF NOTE: OCT 11, 2023@14:34 ENTRY DATE: OCT 11, 2023@14:34:55 AUTHOR: RAI THOMPSON EXP COSIGNER: URGENCY: STATUS: COMPLETED [facility] [address] [place] [address] Oct RADHA SIMON [address] [place] [address] [place] [id number] Dear : I am writing to inform you of the results of the tests you had done at the [facility]. The tests below were performed and are satisfactory unless otherwise noted. - Electrolytes including sodium and potassium SODIUM 128 L (10/09/23) (normal is 137-144) POTASSIUM 4.3 (10/09/23) (normal is 3.5-5.0) CHLORIDE 95 L (10/09/23) (normal is 98-107) CO2 26 (10/09/23) (normal is 22-29) UREA NITROGEN 7 L (10/09/23) (normal Male is 8-26) CREATININE 0.9 (10/09/23) (normal Male is 0.7-1.2) GLUCOSE 91 (10/09/23) (normal is 70-105) CALCIUM 9.3 (10/09/23) (normal is 8.4-10.2) MAGNESIUM 1.9 (10/09/23) (normal is 1.6-2.6) CREATININE EGFR (CKD-EPI) 10/09/2023@1120 88 (normal is >/=60) - Liver function Tests AST/SGOT 117 H (10/09/23) (normal is 5-34) ALT/SGPT 207 H (10/09/23) (normal is </= 55) ALK PHOSPHATASE 101 (10/09/23) (normal is 40-150) ALBUMIN 4.2 (10/09/23) (normal is 3.5-5.2) BILIRUBIN, TOTAL 1.4 H (10/09/23) (normal is 0.3-1.2) - Prostate Test: PSA 2.76 (10/09/23) (normal is </= 3.99) Comments: I have reviewed your most recent test results. Most of your labs are in the normal range. Please refer to the automated letter that you will receive from [facility] for a full set of labs. Your sodium and chloride (body chemistry test) are below the normal range. We do not have you on any medications currently that would cause this to occur. Your PSA test has remained stable. Your total bilirubin, ALT, and AST (liver function tests) are quite elevated. We have not seen this in the past. Please avoid any alcohol as this can irritate the liver. Your low-dose CT scan of your lung did show that you have some cholelithiasis (gallstones) please let my nurse know if you are having any problems with abdominal pain or discomfort as this may be a cause of this enzyme increase. I would like to get you set up to return for additional lab work. I would also like to get a right upper quadrant ultrasound to get your liver evaluated. If you are not having any abdominal symptoms, this won't need to be urgent. The [facility] does have an quality control technician that comes to the office on . The current schedule opening is at the end of November but we may be able to get you in sooner if there is cancellations. Please let my nurse know if you are willing to come in for blood work and ultrasound so appropriate orders can be placed. If you have any further questions or problems, please contact our nursing staff or me at the following number: [phone] ([place]) Sincerely, RAI TH[place]PS[place] MD PHYSICIAN RAI TH[place]PSON ([facility]) Oct 09, 2023 10:50 AM H & P NOTE: LOCAL TITLE: [facility] ANNUAL VISIT STANDARD TITLE: H & P NOTE DATE OF NOTE: OCT 09, 2023@10:50 ENTRY DATE: OCT 09, 2023@07:30:52 AUTHOR: RAI THOMPSON EXP COSIGNER: URGENCY: STATUS: COMPLETED Type of Visit: Face to Face Reason for Visit: Annual review of chronic medical conditions HPI: 78 year-old MALE here for his annual visit. Marietta last annual visit was 10/22/2022. Since that time had lung cancer screening, follow-up on 06/25/2023 for dermatology concern which she had telederm and a dermatology visit. [facility] for SCC. He finally got in at the end of August for the MOHS procedure. Has been healing slowly. 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 - harder time breathing, using the albuterol inhaler now. Palpitations: none Lower extremity swelling: none Weight: down 1.8 lb since 06/25/2023 Urinary symptoms: Urinary flow: seems ok - hard time right away in the morning or sitting for a long time Hesitancy: no issues Emptying: seems ok Incontinence: none Night-time void: sometimes - 1 time a night GI symptoms: Heartburn/Reflux: none Diarrhea/Constipation: seems ok - 2 times daily Arthritis: none Vision: recent appointment Hearing: need to get hearing aids fixed Skin: no concern Home blood sugar: no history of diabetes No swallowing issues, feels like something is closing off in his throat Review of systems: otherwise negative Past Medical History: 1. Prostate cancer - T1a - [place] 3+3 = 6 - dx 11/18/16 - Expectant management - Monitor PSA yearly through [facility] 2. BPH - Benign prostatic hypertrophy - [...] Loss 7. Exposure to potentially hazardous substance 8. SCC of scalp Past Surgical History: 1. TURP (11/2016 @ [facility]) 2. Back surgery (1989 and 1990) 3. Appendectomy (11/2017) 4. Angiogram 10/26/2019 completed after abnormal stress test: normal 5. Bilateral cataract with IOL 08/2017 Family History: 1. Brother - Prostate Cancer, 2. Brother - Skin Cancer, melanoma 3. Brother - Agent [place], 4. Sister - Breast Cancer 5. Nephew - Leukemia 6. Uncle - Leukemia 7. Sister x 2, pancreas cancer, 8. Father - prostate cancer Social History: 1. Ex-smoker - 03/04 ppd x 50yrs. Quit 01/24/2013 2. No ETOH 3. 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 Relationship status: 6. Service: Allergies: NKDA Physical Exam: Temp: 98.4 F [36.9 C] (10/09/2023 10:38) Pulse:77 (10/09/2023 10:38) BP: 118/63 (10/09/2023 10:38) Resp: 16 (10/09/2023 10:38) O2 Sat: 94% (10/09/2023 10:38) Weight: 181.1 lb [82.15 kg] (10/09/2023 10:38) BMI: 31.6 Pain: 0 (10/09/2023 10:38) General: AAOx3, NAD, Healthy, obese HEENT: PERRL, EOMI, AT/NC, no scleral icterus, neck supple, TM's clear bilaterally, throat without erythema, dentures bilaterally, no thyromegaly, no lymphadenopathy. CV: Regular rate and rhythm, no murmurs, no rubs, no gallops Lungs: clear to auscultation bilaterally, no crackles, no wheezing Abd: soft, NT/ND, No hepatosplenomegaly, +BS, no rebound, no guarding Extrem: no clubbing, cyanosis, or edema Neuro: non-focal Skin: no active concerns Labs: ---- CBC & MORPH (by collection [...] EGFR(CKD-EPI): 89 Ref: >=60 Imaging Assessment/Plan: 1. Benign prostatic hypertrophy/Prostate cancer - - Continue Tamsulosin 0.4mg PO Daily - PSA today at [facility] 2. Chronic obstructive pulmonary disease - stable - Albuterol MDI & Albuterol nebulizer solutions - Continue Tiotropium Capsule 18mcg Daily (did not tolerate respimat) - Continue Fluticasone/salmeterol 250/50 1 inhalation twice daily - continue azithromycin 250mg M// (received through pulm consult) 3. Constipation - Continue Senna/Docusate 1 tab twice daily - Continue High Fiber Diet 4. Obesity - work on regular execise, healthy diet, weight loss 5. Hearing loss - Recommended contacting audiology to discuss new hearing aids 6. Health Maintenance - Colon Cancer Screening - Last Colonoscopy (05/10/2022 @ [facility]) - 3 tubular adenomas, repeat in 5 years (due 05/11/2027) - [place] will plan to do with [facility] - AAA Screening (Age > 65-75) - Abd U/S (10/17/15) no aneurysm. - Lung Cancer Screening (Age 55-79) - Patient will continue yearly - Vaccinations: IM - Immunizations ADMINISTERED Immunization Series Date Facility Reaction Info COVID-19 (Quintic), VECTOR-NR, R* 1 07/20/2020 [facility] COVID-19 (MODERNA), MRNA, LNP-S,* 2 03/09/2021 [facility] COVID-19 (PFIZER), MRNA, LNP-S, * B 01/28/2022 [facility] INFLUENZA, MDCK, QUADRIVALENT, PF B 01/28/2022 [facility] PNEUMOCOCCAL CONJUGATE PCV 13 09/21/2015 [facility]* <C> PNEUMOCOCCAL CONJUGATE PCV 13 09/01/2015 [facility] PNEUMOCOCCAL POLYSACCHARIDE PPV23 01/29/2011 [facility]* <C> TDAP 10/11/2020 [facility] ZOSTER LIVE 09/21/2015 [facility]* <C> ZOSTER RECOMBINANT 2 01/12/2021 [facility]* ZOSTER RECOMBINANT 1 10/11/2020 [facility]* RTC in 1 year annual visit CPRS chart review/chart prep/JLV review: 12 minutes Time with patient: 28 minutes Chart completion: 5 minutes Clinical Reminders: Medication Reconciliation: Education Evaluations *Was [...] Remote Allergy/ADR Data available for this patient [facility] No Known Allergies Active and Recently [...] SO4 0.083% INHL 3ML Qty: 120 ACTIVE Issu:07-07-23 for 30 days Sig: INHALE 3 ML (1 VIAL) Refills: 2 Last:09-05-23 IN NEBULIZER BY INHALATION EVERY 6 Expr:07-07-24 HOURS NEEDED FOR SHORTNESS OF BREATH 3) FLUTICAS 250/SALMETEROL 50 INHL DISK 60 ACTIVE (S) Issu:08-28-23 Qty: 3 for 90 days Sig: INHALE 1 PUFF Refills: 3 Last:11-10-23 BY INHALATION TWICE A DAY *RINSE MOUTH Expr:08-28-24 AFTER EACH USE* 4) TAMSULOSIN HCL 0.4MG CAP Qty: 90 for 90 ACTIVE (S) Issu:05-06-23 days Sig: TAKE ONE CAPSULE BY MOUTH Refills: 1 Last:11-09-23 DAILY Expr:05-06-24 5) TIOTROPIUM 18MCG INHL CAP 30 Qty: 1 for ACTIVE Issu:10-02-23 30 days Sig: INHALE ONE CAPSULE IN Refills: 11 Last:10-02-23 INHALER BY INHALATION EVERY DAY TO Expr:10-02-24 PREVENT TROUBLE BREATHING Issue Date Status Last Fill Inactive Outpatient Medications Refills Expiration 1) ALBUTEROL SO4 0.083% INHL 3ML Qty: 120 DISCONTINUED Issu:10-22-22 for 30 days Sig: INHALE 3 ML (1 VIAL) Refills: 0 Last:05-06-23 IN NEBULIZER BY INHALATION EVERY 6 Expr:10-23-23 HOURS NEEDED FOR SHORTNESS OF BREATH 2) AZITHROMYCIN 250MG TAB Qty: 45 for 90 Issu:10-01-22 days Sig: TAKE ONE TABLET BY MOUTH Refills: 0 Last:08-18-23 THREE TIMES A WEEK FOR COPD WITH Expr:10-02-23 CHRONIC COUGH 3) FLUTICAS 250/SALMETEROL 50 INHL DISK 60 DISCONTINUED Issu:10-22-22 Qty: 3 for 90 days Sig: INHALE 1 PUFF Refills: 0 Last:08-22-23 BY INHALATION TWICE A DAY *RINSE MOUTH Expr:10-23-23 AFTER EACH USE* 4) TIOTROPIUM 18MCG INHL CAP 30 Qty: 1 for DISCONTINUED Issu:10-01-22 30 days Sig: INHALE ONE CAPSULE IN Refills: 0 Last:08-28-23 INHALER BY INHALATION EVERY DAY TO Expr:10-02-23 PREVENT TROUBLE BREATHING Start Date Active Non-VA Medications Refills Expiration 1) Non-VA ASPIRIN 81MG EC TAB SiMG ACTIVE MOUTH EVERY DAY 2) Non-VA CHOLECALCIF 25MCG (D3-1,000UNIT) ACTIVE TAB SiMCG MOUTH DAILY 3) Non-VA MAGNESIUM OXIDE CAP,ORAL Sig: ACTIVE 250MG MOUTH DAILY 4) Non-VA MULTIVITAMIN CAP/TAB Si ACTIVE TABLET MOUTH EVERY DAY 5) Non-VA SENNOSIDES 8.6MG TAB Si.6MG ACTIVE MOUTH TWICE A DAY 14 Total Medications Prostate Cancer F/U PSA: PSA ordered at this visit. /alma/ RAI THOMPSON MD PHYSICIAN Signed: 10/09/2023 15:21 RAI THOMPSON ([facility]) Oct 09, 2023 10:43 AM ADVANCE DIRECTIVE: LOCAL TITLE: AD NOTIFICATION AND SCREENING STANDARD TITLE: ADVANCE DIRECTIVE DATE OF NOTE: OCT 09, 2023@10:43 ENTRY DATE: OCT 09, 2023@10:43:26 AUTHOR: CRYSTAL PARTIDA COSIGNER: URGENCY: STATUS: COMPLETED ADVANCE DIRECTIVE NOTIFICATION: I was unable to give the patient written notification of the following rights because: Comment: declined ADVANCE DIRECTIVE SCREENING NOT PERFORMED: It was not possible to perform the advance directive screening because: declined. /alma/ CRYSTAL PARTIDA LPN Signed: 10/09/2023 10:43 CRYSTAL PARTIDA ([facility]) Oct 09, 2023 10:39 AM PRIMARY CARE NOTE: LOCAL TITLE: [facility] PROGRESS NOTE-[facility] STANDARD TITLE: PRIMARY CARE NOTE DATE OF NOTE: OCT 09, 2023@10:39 ENTRY DATE: OCT 09, 2023@10:39:36 AUTHOR: CRYSTAL PARTIDA COSIGNER: URGENCY: STATUS: COMPLETED TYPE OF VISIT: Appointment Check In Type of appointment: In-person appointment REASON FOR VISIT: Annual, co-managed by [facility] non-fasting ALLERGIES: Patient has answered NKA VITAL SIGNS: Blood Pressure: 118/63 (10/09/2023 10:38) Pulse: 77 (10/09/2023 10:38) Respiration: 16 (10/09/2023 10:38) Temperature: 98.4 F [36.9 C] (10/09/2023 10:38) Weight: 181.1 lb [82.15 kg] (10/09/2023 10:38) Height: 63.5 in [161.3 cm] (10/09/2023 10:38) BMI: 31.6 O2 Sat: 94% (10/09/2023 10:38) Pain: 0 (10/09/2023 10:38) PAIN SCREEN: Patient is not having significant [...] 6 HOURS NEEDED FOR SHORTNESS OF BREATH FLUTICAS 250/SALMETEROL 50 INHL DISK 60 INHALE 1 PUFF BY ACTIVE (S) INHALATION TWICE A DAY *RINSE MOUTH AFTER EACH USE* TAMSULOSIN HCL 0.4MG CAP TAKE ONE CAPSULE BY MOUTH DAILY ACTIVE (S) TIOTROPIUM 18MCG INHL CAP 30 INHALE ONE [...] TAB 8.6MG MOUTH TWICE A DAY ACTIVE Depression Screening: Perform PHQ-2 A PHQ-2 screen was performed. The score was 0 which is a negative screen for depression. Over the past two weeks, how often have you been bothered by the following problems? 1. Little interest or pleasure in doing things Not at all 2. Feeling down, depressed, or hopeless Not at all Suicide Screen: C-SSRS Screening [place] Suicide Severity Rating Scale (C-SSRS) screener 1. Over the past month, have you wished you were or wished you could go to sleep and not wake up? No 2. Over the past month, have you had any actual thoughts of killing yourself? No 3. Over the past month, have you been thinking about how you might do this? Response not required due to responses to other questions. 4. Over the past month, have you had these thoughts and had some intention of acting on them? Response not required due to responses to other questions. 5. Over the past month, have you started to work out or worked out the details of how to kill yourself? Response not required due to responses to other questions. 6. If yes, at any time in the past month did you intend to carry out this plan? Response not required due to responses to other questions. 7. In your lifetime, have you ever done anything, started to do anything, or prepared to do anything to end your life (for example, collected pills, obtained a gun, gave away valuables, went to the roof but didn't jump)? No 8. If YES, was this within the past 3 months? Response not required due to responses to other questions. Alcohol Use Screen (AUDIT-C): Alcohol Screen: SCREEN FOR ALCOHOL (AUDIT-C) An alcohol screening test (AUDIT-C) was negative (score=0). 1. How often did you have a drink containing alcohol in the past year? Consider a drink to be a 12 ounce can or bottle of regular beer, 8 ounces of malt liquor, a 5 ounce glass of table wine, or a 1.5 ounce shot of liquor (like scotch, gin, or vodka). Never 2. How many drinks containing alcohol did you have on a typical day when you were drinking in the past year? Response not required due to responses to other questions. 3. How often did you have six or more drinks on one occasion in the past year? Response not required due to responses to other questions. Tobacco Use Screening: The patient is a former tobacco user. The patient quit five to less than fifteen years ago. Nursing Annual Screening: Whole Health Screen is due OR due soon (within 90 days). Whole Health Screening Why is addressing your overall health important to you? To enjoy life What do you want your health for (why do you want to be healthy)? To enjoy life longer Fall History Screen During the past 12 months, have you had any falls? Patient reports having one fall without injury requiring treatment. MEDICATIONS: Patient is on one of the following medication classes: Antihypertensives, Antidepressants, Antipsychotics, Diuretics, or Controlled substance medication used for pain. Script Talk Screen Are you able to read your prescription bottles with your glasses, magnifiers or other aids? Yes or patient not taking any prescriptions. Skin Screen Patient reports any current pressure ulcers, a history of pressure ulcers, or a wound from a medical charge entry specialist or Patient is bed-confined or a wheelchair-user or Patient requires assistance to transfer/change position No, Skin Screen is Negative Home Abuse/Violence Screen Is your home free of abuse and violence? Yes Outpatient Nutrition Screen Body Mass Index (BMI)= 31.6 [place]: Collection DT Specimen Test Name Result Units Ref Range 10/22/2022 11:07 BLOOD !! HEMOGLOBIN A1C 5.4 % 4.0 - 6.0 !! Indicates COMMENTS AVAILABLE...Refer to Interim Lab Report. [place] Hgb A1C: No data available [place] Hgb A1C: No data available Point of Care Hgb A1C: POC HGB A1C____ Is patient's BMI less than 18.5? No Does patient have swallowing, coughing, or chewing problems affecting oral intake? No Has patient experienced unplanned weight loss or gain greater than 10 pounds over the last 2 months? No Is patient's Hgb A1C (Glycosylated Hemoglobin) greater than 9.5? No Is patient receiving Total Parenteral Nutrition (TPN) or Tube Feedings? No Patient Health Education Screen BARRIERS/SPECIAL NEEDS: No barriers identified PREFERRED STYLE OF LEARNING: No preference stated Client Assistive Service ([place]) Screen Does the patient require assistance with outpatient visit? No /alma/ CRYSTAL PARTIDA LPN Signed: 10/09/2023 10:43 CRYSTAL PARTIDA ([facility])
--- NOTE | 2023-12-20 03:54 | US_ITS ---
Patient: RADHA SIMON Facility:?[facility] Patient ID:?[id number] Site Patient ID:?[id number]. Site :?[id number] Study:?US-Abdomen/Pelvis -12/20/2023 5:43:19 AM Ordering Physician:Alida Frederick Final Report: Indication: Right upper quadrant abdominal pain Technique: Sonography of the abdomen was performed limited to the structures discussed below Comparison: There are no prior studies for comparison Findings: The study is globally limited due to patient related sound attenuation factors. The liver is mildly enlarged. It is hyperechoic in echotexture with decreased sound through transmission. There is no visible focal mass or biliary ductal dilation. This pattern is nonspecific but usually due to hepatic steatosis. The gallbladder contains too numerous to count hyperechoic shadowing foci consistent with cholelithiasis. Most of the sternum the gallbladder neck. Gallbladder wall thickness is normal at 2.5 millimeters. No pericholecystic fluid or reported sonographic Cooper sign The common duct measures 2.5 millimeters which is normal The pancreas was not visualized due to overlying bowel gas The right kidney is unremarkable in size and appearance measuring 10.9 x 4.4 x 4.4 centimeter Impression: 1. Cholelithiasis without ultrasound evidence of acute cholecystitis or common duct obstruction. 2. Abnormal hepatic echogenicity likely due to fatty infiltration. 3. Technically limited but otherwise unremarkable as visualized Dictated by Gagandeep Dalal MD @ 12/20/2023 7:41:12 AM Signed by:?Gagandeep Dalal MD @12/20/2023 7:41:12 AM (Electronic Signature)
[2023-12-20] MEDS: KETOROLAC 30 MG/ML inj IVP (04:48)
[2023-12-20] MEDS: 0.9 % SODIUM CHLORIDE 500 ML 500 ML IV (04:49)
--- NOTE | 2023-12-20 05:56 | CT_ITS ---
Patient: RADHA SIMON Facility:?[facility] Patient ID:?[id number] Site Patient ID:?[id number]. Site :?[id number] Study:?CT-Abdomen/Pelvis WITH 82CC [id number] CONTRAST-12/20/2023 6:43:15 AM Ordering Physician:Alida Frederick Final Report: INDICATION: Right-sided abdominal pain COMPARISON: December 16, 2019 TECHNIQUE: CT examination of the abdomen and pelvis was performed following the uneventful intravenous administration of 82 cc of Isovue 370. Thin section axial images were obtained from the lung bases through the pubic symphysis. Oral contrast was not administered. Please note that all CT scans at this facility use dose modulation, iterative reconstruction, and/or weight-based dosing when appropriate to reduce radiation dose to as low as reasonably achievable. FINDINGS: LUNG BASES: Reticular opacities at the lung bases likely due to interstitial fibrosis. This represents a change since December 16, 2019.Follow up evaluation is recommended in the nonacute care setting. The heart size is normal the lung bases. There is a moderate-sized hiatal hernia. LIVER/BILIARY SYSTEM:Hepatic steatosis. Simple cyst. There is cholelithiasis with most of the stones in the region of the gallbladder neck. No wall thickening, pericholecystic fluid or biliary ductal dilation noted.No visible choledocholithiasis ADRENALS: Normal KIDNEYS, URETERS and BLADDER:Kidneys are normal in size. No focal mass. Left extrarenal pelvis. The prostate is enlarged. There has been an apparent TURP. There is enhancing peripheral nodularity of the superior left aspect of the prostate. Follow-up evaluation of the prostate recommended at a clinically appropriate time. The bladder is distended SPLEEN:Normal appearance. PANCREAS: Appears normal. RETROPERITONEUM and MESENTERY: There is no mass, adenopathy or aortic aneurysm. Dense atherosclerotic vascular calcification GASTROINTESTINAL SYSTEM: There is no evidence of diverticulitis, colitis, mechanical obstruction, or appendicitis. The small bowel as visualized appears normal.Fecal retention and scattered diverticulosis. PELVIS: Abnormal prostate as mentioned above. OSSEOUS STRUCTURES and ABDOMINAL WALL: Postsurgical changes of the spine and the pelvis. Degenerative changes. Chronic wedging of a lumbar vertebral body.No significant abdominal wall abnormality. Incidental left hydrocele. OTHER: No free fluid or free air. IMPRESSION: 1. Cholelithiasis without CT evidence of acute cholecystitis or common duct obstruction. 2. Hepatic steatosis. 3. Bibasilar lung findings likely indicating a fibrosing interstitial lung disease. This represents a change since the prior study. Follow-up recommended in the nonacute setting. 4. Enlarged prostate with a peripheral enhancing area in the superolateral prostate for which follow-up evaluation is recommended in the nonacute care setting. 5. Other nonacute appearing findings as above Please note that all CT scans at this facility use dose modulation, iterative reconstruction, and/or weight-based dosing when appropriate to reduce radiation dose to as low as reasonably achievable. Dictated by Gagandeep Dalal MD @ 12/20/2023 7:54:29 AM Signed by:?Gagandeep Dalal MD @12/20/2023 7:54:29 AM (Electronic Signature)
[2023-12-20 06:58] LABS: Appearance Urine Clear (Clear); Bilirubin Urine Negative (Negative); Blood Urine Negative (Negative); Color Urine Yellow (Yellow); Glucose Urine Negative (Negative); Ketones Urine Negative (Negative); Leukocyte Esterase Urine Trace (Negative); Nitrite Urine Negative (Negative); Protein Urine Negative (Negative); Urobilinogen Urine 0.2 (0.2-1.0); pH Urine 7.5 (5.0-8.5)
[2023-12-20 07:48] LABS: Amorphous Sediment Urine Many; Bacteria Urine Few; RBC Urine 0-2 (0-2); Squamous Epithelial Cell Urine Few (None-Few); WBC Urine 0-2 (0-5)
[2023-12-20 07:49] LABS: Fine Granular Casts Urine Moderate
== END 2023-12-20 08:47 | disposition home or self-care (01) ==
PROVIDERS: Emergency Provider Family Medicine; PCP Family Medicine
DX: R33.9 Retention of urine, unspecified (principal); K80.20 Calculus of gallbladder without cholecystitis without obstruction; J84.10 Pulmonary fibrosis, unspecified
CPT/HCPCS: 51702; 36415; 74177; 76705; 80048; 80076; 81001; 85025; 85379; 86140; 87086; 96374; 96375; 99284; J1885; J2270; J7030; Q9967

== ENCOUNTER 2024-01-02 08:08 | Emergency (ER) | payer OTHER, SELFPAY ==
--- NOTE | 2024-01-02 08:13 | ED.GENADULT ---
HPI - General Adult General Date Seen: 01/02/24 Chief complaint: Urogenital Problems, Male Stated complaint: urinary problem Time Seen by Provider: 01/02/24 08:13 History of Present Illness HPI narrative: 78-year-old male with a history of pulmonary fibrosis, history of appendectomy, history of urinary retention. Per records he was here in the ER on December 19 for right upper quadrant abdominal pain. Bedside ultrasound showed gallbladder sludge and possibly gallbladder stones. Abdomen CT showed gallstones without acute cholecystitis. CT also showed a largely distended urinary bladder, and also some abnormalities and prostate requiring outpatient follow-up. White count was 7, hemoglobin 15.4, platelet 181. D-dimer 0.32. Sodium 132, potassium 4.4, BUN 15, creatinine 1.0. LFTs normal. Urinalysis negative. He had a catheter placed. Drain more than 600 mL of urine. He has [facility]. He is set up to see a urologist at [facility] and. During his appointment on Friday they removed his Coles catheter. They did put some sterile saline into his bladder and he is able to void normally and he was discharged. He was voiding normally yesterday and the day before that on Friday. However this morning he woke up and tried to go to the bathroom and was not able to pass any urine. He came here to the ER right away. He is not having any suprapubic pain or right upper quadrant pain which were the symptoms that drove him into the ER 10 days ago but he is worried that if he does not get a catheter soon he may be back in a lot of distress. He has not noticed any dysuria, hematuria or other abnormal urinary symptoms since his catheter was removed. No fevers. It chronically been on Flomax 0.4 mg per day for a history of enlarged prostate. At his checkup with the [facility] 2 days ago they increased his Flomax up to 0.8 mg per day. Related Data Home Medications ?Medication ?Instructions ?Recorded ?Confirmed albuterol sulfate 90 mcg/actuation 2 puff inhalation Q6H PRN 01/03/22 01/03/22 aerosol inhaler ibuprofen 200 mg tablet (Advil) 200 mg PO Q6H PRN 01/03/22 01/03/22 tiotropium bromide 2.5 2 puff inhalation QDAY 01/03/22 01/03/22 mcg/actuation mist for inhalation (Spiriva Respimat) albuterol sulfate 2.5 mg/3 mL 2.5 mg inhalation Q6H 01/08/22 (0.083 %) solution for nebulization aspirin 81 mg tablet,delayed 81 mg PO QDAY 01/08/22 release fluticasone propion-salmeterol inhalation 01/08/22 [Wixela Inhub] sennosides 8.6 mg capsule (senna) 8.6 mg PO QDAY PRN 01/08/22 tamsulosin 0.4 mg capsule 0.4 mg PO QDAY 01/08/22 Previous Rx's ?Medication ?Instructions ?Recorded prednisone 20 mg tablet 20 mg PO BID Back Pain #10 tabs 01/03/22 Allergies Allergy/AdvReac Type Severity Reaction Status Date / Time No Known Drug Allergies Allergy Verified 01/03/22 14:32 [facility] Medical History Back pain ?M54.9 - Dorsalgia, unspecified (ICD-10) Exam Narrative: Exam Narrative: Constitutional: Appears well-developed and well-nourished. Alert. Conversant. Non toxic. HENT: Head: Atraumatic. Nose: Nose normal. Mouth/Throat: Oral mucosa is clear and moist. no trismus. Eyes: Conjunctivae normal. EOM normal. Pupils equal, round, and reactive to light. No scleral icterus. Neck: Normal range of motion. Neck supple. No tracheal deviation present. Cardiovascular: Normal rate, regular rhythm. No gallop. No friction rub. No murmur heard. Pulmonary/Chest: Effort normal. No stridor. No respiratory distress. No wheezes. No rales. No rhonchi . Abdominal: Soft. No CVA tenderness No distension. No mass. No tenderness. No rebound. No guarding. Musculoskeletal: RUE: Normal range of motion. No tenderness. No deformity LUE: Normal range of motion. No tenderness. No deformity RLE: Normal range of motion. No edema. No tenderness. No deformity LLE: Normal range of motion. No edema. No tenderness. No deformity Neurological: Alert and oriented to person, place, and time. Normal strength. CN II-VII intact. No sensory deficit. GCS eye subscore is 4. GCS verbal subscore is 5. GCS motor subscore is 6. Normal coordination Skin: Skin is warm and dry. No rash noted. No pallor. Normal capillary refill. Psychiatric: Normal mood. Normal affect. Const: Vital Signs, click to edit/add: Vital Signs - 24 hr 01/02/24 08:18 Temperature 98.0 F Pulse Rate [Right Pulse Oximeter] 92 Respiratory Rate 18 Blood Pressure [Ri ght Upper Arm] 122/92 H Pulse Oximetry 94 Oxygen Delivery Me thod Room Air Course Vital Signs Vital signs: Initial Vital Signs Temperature 98.0 F 01/02/24 08:18 Temperature Source Temporal Artery Scan 01/02/24 08:18 Pulse Rate 92 01/02/24 08:18 Respiratory Rate 18 01/02/24 08:18 Blood Pressure 122/92 H 01/02/24 08:18 Blood Pressure Mean 102 01/02/24 08:18 Blood Pressure Position Sitting 01/02/24 08:18 Pulse Oximetry 94 01/02/24 08:18 Oxygen Delivery Method Room Air 01/02/24 08:18 Vital Signs Temperature 98.0 F 01/02/24 08:18 Pulse Rate 92 01/02/24 08:18 Respiratory Rate 18 01/02/24 08:18 Blood Pressure 122/92 H 01/02/24 08:18 Pulse Oximetry 94 01/02/24 08:18 Oxygen Delivery Method Room Air 01/02/24 08:18 Temperature 98.0 F 01/02/24 08:18 Pulse Rate 92 01/02/24 08:18 Respiratory Rate 18 01/02/24 08:18 Blood Pressure 122/92 H 01/02/24 08:18 Pulse Oximetry 94 01/02/24 08:18 Oxygen Delivery Method Room Air 01/02/24 08:18 Medical Decision Making MDM Narrative Medical decision making narrative: Very pleasant 78-year-old gentleman with history of enlarged prostate returns to the ER today for acute urinary retention. He had been seen here about 10 days ago with a Coles catheter placed. He had follow-up with his doctors [facility] 2 days ago with a catheter removed and had been voiding normally for 48 hours until this morning when he is not able to void. Coles catheter was placed here in the ER with return of a few 100 mL of urine. He is feeling better after placement of the catheter. He is already on Flomax and recently had his medication dose increased by his doctors at the [facility]. Urinalysis does not show any sign of active UTI today triggering his acute retention He is not having any flank pain suggest hydronephrosis or kidney stone. I do not think he needs repeat labs to check creatinine or kidney function because he is making urine. He is safe for outpatient management. He does need urology follow-up and likely will need further interventions to help deal with his enlarged prostate. He says that he has already had an appointment previously scheduled with [facility] to be done in their clinic. He made that appointment several months ago in the earliest available appointment in the [facility] was in March. He also had his regular doctors at the [facility] set him up with a urology referral through the [facility] system and that too is not available until March. I asked the patient to try to call post his primary care doctor's the [facility] and his doctors at [facility] to see if they can move up his appointment because he will need follow-up within the next couple of weeks to recheck for his catheter and to move forward with his treatment. He is agreeable to do this and he had his will call today. Precautions for return to the ER reviewed. Questions answered.. Lab Data Labs: Lab Results 01/02/24 Range/Units Unknown Urine Color Yellow (Yellow) Urine Appearance Clear (Clear) Urine pH 7.5 (5.0-8.5) Ur Specific [place] 1.020 (1.000-1.030) Urine Protein Negative (Negative) Urine Glucose (UA) Negative (Negative) Urine Ketones Negative (Negative) Urine Blood Negative (Negative) Urine Nitrite Positive A (Negative) Urine Bilirubin Negative (Negative) Urine Urobilinogen 0.2 (0.2-1.0) Ur Leukocyte Esterase Trace A (Negative) Urine RBC 0-2 (0-2) Urine WBC 2-5 (0-5) Ur Squamous Epith Cells Few (None-Few) Urine Bacteria Many A (None) Discharge Plan Discharge Clinical Impression: Acute urinary retention Instructions: Urinary Retention in Men (ED), Coles Catheter Placement and Care (ED) Additional Instructions: As we discussed, please call your doctors at the [facility] to arrange a follow-up appointment for urinary retention. Also, ask your doctors at the [facility] to move up your urology appointment for as soon as possible (within the next 1-2 weeks). You can also call your urologist through [facility] and ask them to move up your appointment. You might be able to get a sooner appointment if you ask for an appointment at another office other than the [facility]. If you have any problems especially if your bladder stops draining or if urine is bloody, if her having bad abdominal pain, fever, nausea or vomiting, or any other problems please come back to the ER right away. Prescriptions: No Action Spiriva Respimat 2.5 mcg/actuation mist 2 puff inhalation QDAY albuterol sulfate 90 mcg/actuation HFA aerosol inhaler 2 puff inhalation Q6H PRN ibuprofen [Advil] 200 mg tablet 200 mg PO Q6H PRN prednisone 20 mg tablet 20 mg PO BID Qty: 10 0RF tamsulosin 0.4 mg capsule 0.4 mg PO QDAY senna 8.6 mg capsule 8.6 mg PO QDAY PRN albuterol sulfate 2.5 mg /3 mL (0.083 %) solution for nebulization 2.5 mg inhalation Q6H aspirin 81 mg tablet,delayed release (DR/EC) 81 mg PO QDAY fluticasone propion-salmeterol [Wixela Inhub] inhalation Follow Up/Referrals: Cain Garcia MD [Primary Care Provider] - Stand Alone Forms: Strutta Info Instructions
[2024-01-02 08:18] VITALS: BP 122/92; PULSE 92; RESP 18; TEMP 36.7; O2SAT 94; BMI 31.9
--- OUTSIDE RECORDS SUMMARY | 2024-01-02 08:32 | XMS_ITS | Encounter Summary ---
Author Name [facility] Organization [facility] Address [address] [place] [address] Care Team Providers Care Dot Compliance Specialist Name Role Phone RAI THOMPSON Primary Care [...] SUPPL EMENT Mar 03, 2015 PLAN N [id number] [phone] RADHA SIMON PATIENT MEDICARE (WNR) MEDICARE (M) PART B Mar 03, 2015 PART B [id number] [phone] RADHA SIMON PATIENT MEDICARE (WNR) MEDICARE (M) PART A Jan 01, 2011 PART A [id number] RADHA SIMON PATIENT Selected Encounter This section includes the information on record at [place] for the Encounter. Date/Time Encounter Type Encounter Description Reason Provider Source Dec 22, 2023 07:13 PM Outpatient Encounter ADMIN PAT ACTIVTIES (MASNONCT) EMELIA RUIZ IHE Encounter Template Text not used by [place] Plan of Treatment: Future Appointments (+ 6 months) and Future Tests (+/- 45 days) The Plan of Treatment section includes future care activities for the patient from all [place] treatmentfaunc healthities. This section includes future appointments and future orders which are active, pending or scheduled. Future Appointments This section includes appointments that were scheduled to occur 6 months from the date of the Encounter, up to a maximum of 20 appointments. The data comes from all [place] treatment facilities. Appointment Date/Time Appointment Type Appointme nt Facility Name Dec 29, 2023 12:30 PM AMBULATORY - SURGERY [facility] Mar 04, 2024 10:00 AM AMBULATORY - SURGERY [facility] Encounter Notes: All associated encounter notes This section contains the clinical notes associated to the Encounter. Date/Time Encounter Note(s) Provider Source Dec 26, 2023 09:49 AM ADDENDUM: LOCAL TITLE: Addendum STANDARD TITLE: ADDENDUM DATE OF NOTE: DEC 26, 2023@09:49:01 ENTRY DATE: DEC 26, 2023@09:49:02 AUTHOR: KIRK MOCK EXP COSIGNER: URGENCY: STATUS: COMPLETED was seen in a Community ED. Records uploaded to chart. Please review and follow up as appropriate. /alma/ KIRK MOCK ADVANCED MSA Signed: 12/26/2023 09:49 Receipt Acknowledged By: 12/26/2023 16:48 /es/ RAI THOMPSON MD PHYSICIAN 12/26/2023 10:20 /es/ Yong Burns RN [facility] === --- Original Document --- 12/20/23 [facility] PRESENTING CARE COORD PLAN NOTE: Emergency Notification Intake Date Presenting to the Facility: Dec Method of Contact: Notified from ECR worklist Notification ID: [id number] [facility] Referral #: [facility] Hospital Name: Hospital: [facility] Address: [address] City: [place] State: [place] Zip Code: [address] Phone : Community Facility Point of Contact: Name: Phone: Chief complaint: PAIN UNDERNEATH RIB CAGE, BLADDER EXTREMELY FULL, PROSTATE SWOLLEN Primary Diagnosis: Disposition Discharged to home Date of discharge: Dec Comments: 12/22/2023 3:22:16 PM CDT LEISA RUIZ MATCHED [facility] INFORMATION TO [facility] CALLED FOR POC INFORMATION AND NPI NUMBER, NO ANSWER UNABLE TO FIND NPI NUMBER IN PPMS OR NPI REGISTRY /alma/ THU LAUREN MEDICAL ADMIN SPECIALIST Signed: 12/22/2023 19:21 Receipt Acknowledged By: 12/23/2023 08:18 /alma/ Emelia Ruiz HUMAN RESOURCES SAFETY MANAGER job cost estimator Marriage Counselor 12/23/2023 ADDENDUM STATUS: COMPLETED Records have been requested for this episode of care. Alerting PACT RN for awareness. /alma/ Emelia Ruiz HUMAN RESOURCES SAFETY MANAGER job cost estimator Marriage Counselor Signed: 12/23/2023 08:19 Receipt Acknowledged By: 12/23/2023 09:00 /alma/ Yong Burns RN [facility] 12/25/2023 ADDENDUM STATUS: COMPLETED Records requested and will be uploaded via Atzipi when received. /alma/ LORELEI Lala DIVEHI ...Advanced Engineering Intern Signed: 12/25/2023 09:00 12/20/2023 ADDENDUM STATUS: COMPLETED [facility] Scanned Document - Addendum. ED record 12.20.23 [facility] SCANNED DOCUMENT SIGNATURE NOT REQUIRED Electronically Filed: 12/26/2023 by: KIRK MOCK ADVANCED [facility] 12/26/2023 ADDENDUM STATUS: COMPLETED See Dec 21 CCC:Clinical Triage Note for f/u information. /alma/ Yong Burns RN [facility] Signed: 12/26/2023 10:21 KIRK MOCK [facility] Dec 23, 2023 08:18 AM ADDENDUM: LOCAL TITLE: Addendum STANDARD TITLE: ADDENDUM DATE OF NOTE: DEC 23, 2023@08:18:55 ENTRY DATE: DEC 23, 2023@08:18:56 AUTHOR: EMELIA RUIZ COSIGNER: URGENCY: STATUS: COMPLETED Records have been requested for this episode of care. Alerting PACT RN for awareness. /alma/ Emelia Ruiz HUMAN RESOURCES SAFETY MANAGER job cost estimator Marriage Counselor Signed: 12/23/2023 08:19 Receipt Acknowledged By: 12/23/2023 09:00 /alma/ Yong Burns RN [facility] === --- Original Document --- 12/20/23 [facility] PRESENTING CARE COORD PLAN NOTE: Emergency Notification Intake Date Presenting to the Facility: Dec Method of Contact: Notified from [email or web address] worklist Notification ID: [id number] [facility] Referral #: [facility] Name: Hospital: [facility] Address: [address] City: [place] State: [place] Zip Code: [address] Phone : [facility] Facility Point of Contact: Name: Phone: Chief complaint: PAIN UNDERNEATH RIB CAGE, BLADDER EXTREMELY FULL, PROSTATE SWOLLEN Primary Diagnosis: Disposition Discharged to home Date of discharge: Dec Comments: 12/22/2023 3:22:16 PM CDT LEISA RUIZ [facility] [employer] INFORMATION TO [facility] CALLED FOR POC INFORMATION AND NPI NUMBER, NO ANSWER UNABLE TO FIND NPI NUMBER IN PPMS OR NPI REGISTRY /alma/ THU LAUREN MEDICAL ADMIN SPECIALIST Signed: 12/22/2023 19:21 Receipt Acknowledged By: 12/23/2023 08:18 /alma/ Emelia Ruiz HUMAN RESOURCES SAFETY MANAGER job cost estimator Marriage Counselor EMELIA RUIZ [facility] Dec 20, 2023 07:14 PM NONVA NOTE: LOCAL TITLE: [facility] PRESENTING CARE COORD PLAN STANDARD TITLE: NONVA NOTE DATE OF NOTE: DEC 20, 2023@19:14 ENTRY DATE: DEC 22, 2023@19:14:49 AUTHOR: THU LAUREN COSIGNER: URGENCY: STATUS: COMPLETED [facility] PRESENTING CARE COORD PLAN NOTE Has ADDENDA Emergency Notification Intake Date Presenting to the Facility: Dec Method of Contact: Notified from ECR worklist Notification ID: [id number] [facility] Referral #: [facility] Hospital Name: Hospital: [facility] Address: [address] City: [place] State: [place] Zip Code: [address] Phone : [facility] Facility Point of Contact: Name: Phone: Chief complaint: PAIN UNDERNEATH RIB CAGE, BLADDER EXTREMELY FULL, PROSTATE SWOLLEN Primary Diagnosis: Disposition Discharged to home Date of discharge: Dec Comments: 12/22/2023 3:22:16 PM CDT LEISA RUIZ MATCH[facility] [employer] INFORMATION TO [facility] CALLED FOR POC INFORMATION AND NPI NUMBER, NO ANSWER UNABLE TO FIND NPI NUMBER IN PPMS OR NPI REGISTRY /alma/ THU LAUREN MEDICAL ADMIN SPECIALIST Signed: 12/22/2023 19:21 Receipt Acknowledged By: 12/23/2023 08:18 /alma/ Emelia Ruiz HUMAN RESOURCES SAFETY MANAGER job cost estimator Marriage Counselor 12/23/2023 ADDENDUM STATUS: COMPLETED Records have been requested for this episode of care. Alerting PACT RN for awareness. /alma/ Emelia Ruiz HUMAN RESOURCES SAFETY MANAGER job cost estimator Marriage Counselor Signed: 12/23/2023 08:19 Receipt Acknowledged By: 12/23/2023 09:00 /alma/ Yong Burns RN [facility] 12/25/2023 ADDENDUM STATUS: COMPLETED Records requested and will be uploaded via Epsi when received. /lama/ LORELEI CRAWFORDH ...Advanced Engineering Intern Signed: 12/25/2023 09:00 12/20/2023 ADDENDUM STATUS: COMPLETED VistA Imaging Scanned Document - Addendum. ED record 12.20.23 [facility] SCANNED DOCUMENT SIGNATURE NOT REQUIRED Electronically Filed: 12/26/2023 by: KIRK KAN MSA 12/26/2023 ADDENDUM STATUS: COMPLETED [place] was seen in a [facility] ED. Records uploaded to chart. Please review and follow up as appropriate. /alma/ KIRK KAN MSA Signed: 12/26/2023 09:49 Receipt Acknowledged By: * AWAITING SIGNATURE * RAI THOMPSON 12/26/2023 10:20 /es/ Yong Burns RN [facility] 12/26/2023 ADDENDUM STATUS: COMPLETED See Dec 21 CCC:Clinical Triage Note for f/u information. /alma/ Yong Burns RN [facility] Signed: 12/26/2023 10:21 THU LAUREN [facility]
--- OUTSIDE RECORDS SUMMARY | 2024-01-02 08:32 | XMS_ITS | Continuity of Care Document ---
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 It does not include entries that were removed or entered in error. Problem Status Onset Date Problem Type Date of Resolution Comments Source Exposure to potentially hazardous substance ([facility] [id number] ) Active 05/09/19 24 Condition May 09, 2023 Entered By: ERIKA HOOPER Comment[facility] K[facility]STIAN Documentation Initiative [facility] BPH - Benign prostatic hypertrophy Active Condition Oct 09, 2017 Entered By: MARK HOLMAN Comment: TURP (11/2016 @ [facility]) [place] ([facility]) Chronic obstructive lung disease Active Condition [place] ([facility]) Low back pain Active Condition Oct Entered By: MARK HOLMAN Comment: Back surgery (1989 and 1990)Oct 09, 2017 Entered By: MARK HOLMAN Comment: Hip surgery (1993) [place] ([facility]) Polyp Colon (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) Active Condition [place] ([facility]) Primary malignant neoplasm of prostate Active Condition [place] ([facility]) Tobacco use Active Condition [place] ([facility]) Diagnosis: ICD-10-CM R33.9 Retention of urine, unspecified Active Diagnosis [facility] Diagnosis: ICD-10-CM Z00.00 Encntr for general adult medical exam w/o abnormal findings Active Diagnosis [place] ([facility]) Diagnosis: ICD-10-CM C44.41 Basal cell carcinoma of skin of scalp and neck Active Diagnosis [facility] Diagnosis: ICD-10-CM D48.5 Neoplasm of uncertain behavior of skin Active Diagnosis [facility] Medications Combined list of outpatient medications from [...] WELL* RESPIR ATORY (INHAL ATION) ACTIVE 10/09/2024 [id number] 4 [facility] [place] [facility] ALBUTEROL 90MCG/ACTUA T (CFC-F) INHL,ORAL,8 .5GM DOSE COUNTER INHALE 2 PUFFS BY INHALATI ON FOUR TIMES A DAY NEEDED FOR IMMEDIAT E RELIEF OF SHORTNES S OF BREATH *SHAKE WELL* RESPIR ATORY (INHAL ATION) DISCONT INUED 10/23/2023 [id number] 4 ENA THOMPSON MARCK Kevin 2022 2 [place] ([facility]) ALBUTEROL SO4 0.083% INHL,3ML INHALE 3 ML (1 VIAL) IN NEBULIZE R BY INHALATI ON EVERY 6 HOURS NEEDED FOR SHORTNES S OF BREATH RESPIR ATORY (INHAL ATION) ACTIVE 07/07/2024 [id number] 4 [facility] 120 [place] [facility]) ALBUTEROL SO4 0.083% INHL,3ML INHALE 3 ML (1 VIAL) IN NEBULIZE R BY INHALATI ON EVERY 6 HOURS NEEDED FOR SHORTNES S OF BREATH RESPIR ATORY (INHAL ATION) DISCONT INUED 10/23/2023 [id number] 4 [facility] 120 [place] [facility] ASPIRIN 81MG TAB,EC TAKE ONE TABLET BY MOUTH EVERY DAY ORAL ACTIVE Shannan ALVARADO 2015 [place] ([facility]) AZITHROMYCI N 250MG TAB TAKE ONE TABLET BY MOUTH THREE TIMES A WEEK FOR COPD WITH CHRONIC COUGH ORAL ACTIVE 12/01/2024 [id number] 4 INES LUNA NJAMIN E 2023 45 [place] [facility] AZITHROMYCI N 250MG TAB TAKE ONE TABLET BY MOUTH THREE TIMES A WEEK FOR COPD WITH CHRONIC COUGH ORAL DISCONT INUED 10/02/2023 [id number] 4 INES LUNA NJAMIN E 2022 45 [place] [facility] CHOLECALCIF NENA 25MCG (1,000UNIT) TAB TAKE ONE TABLET BY MOUTH DAILY ORAL ACTIVE JAYENA 2020 [place] ([facility]) FLUTICASONE 250MCG/SALM ETEROL 50MCG INHL,ORAL,D ISKUS,60 INHALE 1 PUFF BY INHALATI ON TWICE A DAY *RINSE MOUTH AFTER EACH USE* RESPIR ATORY (INHAL ATION) ACTIVE 08/28/2024 [id number] 4 JAYENA 2023 3 [place] ([facility]) FLUTICASONE 250MCG/SALM ETEROL 50MCG INHL,ORAL,D ISKUS,60 INHALE 1 PUFF BY INHALATI ON TWICE A DAY *RINSE MOUTH AFTER EACH USE* RESPIR ATORY (INHAL ATION) DISCONT INUED 10/23/2023 [id number] 4 JAYENA 2022 3 [place] ([facility]) MAGNESIUM OXIDE CAP,ORAL TAKE 250MG BY MOUTH DAILY ORAL ACTIVE JAYENA K 2020 [place] ([facility]) MULTIVITAMI NS CAP/TAB TAKE ONE TABLET BY MOUTH EVERY DAY ORAL ACTIVE ENA THOMPSON 2020 [place] ([facility]) SENNOSIDES 8.6MG TAB TAKE ONE TABLET BY MOUTH TWICE A DAY ORAL ACTIVE JAYENA 2022 [place] ([facility]) TAMSULOSIN HCL 0.4MG CAP TAKE ONE CAPSULE BY MOUTH TWICE A DAY FOR BLADDER SYMPTOMS ORAL ACTIVE 12/29/2024 [id number] BE STONE 2023 180 [place] [facility] TAMSULOSIN HCL 0.4MG CAP TAKE ONE CAPSULE BY MOUTH DAILY ORAL DISCONT INUED (EDIT) 05/06/2024 [id number] 4 ENA THOMPSON K 2023 90 [place] ([facility]) TAMSULOSIN HCL 0.4MG CAP TAKE ONE CAPSULE BY MOUTH DAILY ORAL DISCONT INUED 05/03/2023 [id number] 3 ENA THOMPSON 2022 90 [place] ([facility]) TIOTROPIUM 18MCG CAP,INHL,30 INHALE ONE CAPSULE IN INHALER BY INHALATI ON EVERY DAY TO PREVENT TROUBLE BREATHIN G RESPIR ATORY (INHAL ATION) ACTIVE 10/02/2024 [id number] INES LUNA NJAMIN E 2023 1 [facility] TIOTROPIUM 18MCG CAP,INHL,30 INHALE ONE CAPSULE IN INHALER BY INHALATI ON EVERY DAY TO PREVENT TROUBLE BREATHIN G RESPIR ATORY (INHAL ATION) DISCONT INUED 10/02/2023 [id number] 4 JULIANNE NUR 2022 1 [facility] Immunizations Combined list of available immunizations from the Department of Defense and Veterans Affairs facilities. Immunization Series Date Given Administered By Site Reaction Lot Number CVX Code Drug Med Asst Status Comments Source PNEUMOCOCCAL CONJUGATE PCV20, POLYSACCHARID E [id number] CONJUGATE, ADJUVANT, PF 2023 216 complet ed [facility] COVID-19 (PFIZER), MRNA, LNP-S, BIVALENT, PF, 30 MCG/0.3 ML DOSE 2021 300 complet ed [facility] INFLUENZA, INJECTABLE, MDCK, PRESERVATIVE FREE, QUADRIVALENT 2021 171 complet ed [facility] INFLUENZA, INJECTABLE, QUADRIVALENT 2021 158 complet ed [facility] COVID-19 (MODERNA), MRNA, LNP-S, PF, 100 MCG/0.5ML DOSE OR 50 MCG/0.25ML DOSE 2 2021 207 complet ed [facility] ZOSTER RECOMBINANT 2 2020 187 complet ed [place] ([facility]) INFLUENZA, INJECTABLE, MDCK, QUADRIVALENT, PRESERVATIVE 2020 186 complet ed [facility] INFLUENZA, UNSPECIFIED FORMULATION 2020 88 complet ed [facility] TDAP 2020 115 complet ed [place] ([facility]) ZOSTER RECOMBINANT 1 2020 187 complet ed [place] ([facility]) COVID-19 (JEFF), VECTOR-NR, RS-AD26, PF, 0.5 ML 1 2020 212 complet ed [facility] INFLUENZA, INJECTABLE, QUADRIVALENT, PRESERVATIVE FREE 2019 150 complet ed [facility] INFLUENZA VACCINE, QUADRIVALENT, ADJUVANTED 2019 205 complet ed [facility] INFLUENZA, UNSPECIFIED FORMULATION 2019 88 complet ed [facility] PNEUMOCOCCAL CONJUGATE PCV 13 2015 133 complet ed [employer], [id number], 10/17 [place] ([facility]) ZOSTER LIVE 2015 121 complet ed [employer] [id number], 7 [place] ([facility]) PNEUMOCOCCAL CONJUGATE PCV 13 2015 133 complet ed [facility] ZOSTER LIVE 2015 121 complet ed [facility] PNEUMOCOCCAL POLYSACCHARID E PPV23 2010 33 complet ed [facility] TDAP 2009 115 complet ed [facility] Results Combined list of recent chemistry, hematology [...] Oct 16, 2023 04:45 PM Reporting Lab: [facility] [phone] Performing Lab: [facility] [address] [place] ([facility]) ALT/SGPT ALANINE AMINOTRANS FERASE [ENZYMATIC ACTIVITY/V OLUME] IN SERUM OR PLASMA 24 U/L <44 - 44 11/12 Specimen Type: PLASMA No comment entered. Ordering Provider: CLARI THOMPSON Report Released Date/Time: Oct 16, 2023 04:45 PM Reporting Lab: [facility] [address] Performing Lab: [facility] [address] [place] ([facility]) ALKALINE PHOSPHAT ASE ALKALINE PHOSPHATAS E [ENZYMATIC ACTIVITY/V OLUME] IN SERUM OR PLASMA 57 U/L 40 - 150 11/12 Specimen Type: PLASMA No comment entered. Ordering Provider: CLARI THOMPSON Report Released Date/Time: Oct 16, 2023 04:45 PM Reporting Lab: [facility] [address] Performing Lab: [place] [phone] [place] ([facility]) BILIRUBI N TOTAL W/REFLEX TO DIRECT BILIRUBIN. TOTAL [MASS/VOLU ME] IN SERUM OR PLASMA 1.0 mg/dL 0.2 - 1.2 11/12 Specimen Type: PLASMA No comment entered. Ordering Provider: CLARI THOMPSON Report Released Date/Time: Oct 16, 2023 04:45 PM Reporting Lab: [facility] [address] Performing Lab: [place] [id number] ([facility]) GAMMA GTP GAMMA GLUTAMYL TRANSFERAS E [ENZYMATIC ACTIVITY/V OLUME] IN SERUM OR PLASMA 47 U/L <54 - 54 11/12 Specimen Type: PLASMA No comment entered. Ordering Provider: CLARI THOMPSON Report Released Date/Time: Oct 16, 2023 04:45 PM Reporting Lab: [facility] [address] Performing Lab: [facility] [address] [place] ([facility]) ANTI-HEP C(EIA) HEPATITIS C VIRUS AB [PRESENCE] IN SERUM NEGATIVE 11/12 Specimen Type: SERUM No comment entered. Ordering Provider: CLARI THOMPSON Report Released Date/Time: Oct 16, 2023 04:45 PM Reporting Lab: [facility] [address] Performing Lab: [address] ([facility]) BASIC METABOLI C PANEL+MG CREATININE [MASS/VOLU ME] IN SERUM OR PLASMA 0.9 mg/dL 0.7 - 1.2 11/12 Specimen Type: PLASMA No comment entered. Ordering Provider: CLARI THOMPSON Report Released Date/Time: Oct 16, 2023 04:45 PM Reporting Lab: [facility] [address] Performing Lab: [facility] [address] [place] ([facility]) BASIC METABOLI C PANEL+MG UREA NITROGEN [MASS/VOLU ME] IN SERUM OR PLASMA 11 mg/dL 8 - 26 11/12 Specimen Type: PLASMA No comment entered. Ordering Provider: CLARI THOMPSON Report Released Date/Time: Oct 16, 2023 04:45 PM Reporting Lab: [facility] [address] Performing Lab: [facility] [address] [place] ([facility]) BASIC METABOLI C PANEL+MG GLUCOSE [MASS/VOLU ME] IN SERUM OR PLASMA 93 mg/dL 70 - 100 11/12 Specimen Type: PLASMA No comment entered. Ordering Provider: CLARI THOMPSON Report Released Date/Time: Oct 16, 2023 04:45 PM Reporting Lab: [facility] [address] Performing Lab: [facility] [address] [place] ([facility]) BASIC METABOLI C PANEL+MG SODIUM [MOLES/VOL UME] IN SERUM OR PLASMA 133 mmol/L 136 - 145 11/12 L Specimen Type: PLASMA No comment entered. Ordering Provider: CLARI THOMPSON Report Released Date/Time: Oct 16, 2023 04:45 PM Reporting Lab: [facility] [address] Performing Lab: [facility] [address] [place] ([facility]) BASIC METABOLI C PANEL+MG POTASSIUM [MOLES/VOL UME] IN SERUM OR PLASMA 4.1 mmol/L 3.5 - 5.1 11/12 Specimen Type: PLASMA No comment entered. Ordering Provider: CLARI THOMPSON Report Released Date/Time: Oct 16, 2023 04:45 PM Reporting Lab: [facility] [address] Performing Lab: [facility] [address] [place] ([facility]) BASIC METABOLI C PANEL+MG CHLORIDE [MOLES/VOL UME] IN SERUM OR PLASMA 101 mmol/L 98 - 107 11/12 Specimen Type: PLASMA No comment entered. Ordering Provider: CLARI THOMPSON Report Released Date/Time: Oct 16, 2023 04:45 PM Reporting Lab: [facility] [address] Performing Lab: [facility] [address] [place] ([facility]) BASIC METABOLI C PANEL+MG CARBON DIOXIDE, TOTAL [MOLES/VOL UME] IN SERUM OR PLASMA 25 mmol/L 22 - 29 11/12 Specimen Type: PLASMA No comment entered. Ordering Provider: CLARI THOMPSON Report Released Date/Time: Oct 16, 2023 04:45 PM Reporting Lab: [facility] [address] Performing Lab: [facility] [phone] [place] ([facility]) BASIC METABOLI C PANEL+MG CALCIUM [MASS/VOLU ME] IN SERUM OR PLASMA 9.3 mg/dL 8.4 - 10.2 11/12 Specimen Type: PLASMA No comment entered. Ordering Provider: CLARI THOMPSON Report Released Date/Time: Oct 16, 2023 04:45 PM Reporting Lab: [facility] [address] Performing Lab: [facility] [address] [place] ([facility]) BASIC METABOLI C PANEL+MG MAGNESIUM [MASS/VOLU ME] IN SERUM OR PLASMA 1.9 mg/dL 1.6 - 2.6 11/12 Specimen Type: PLASMA No comment entered. Ordering Provider: CLARI THOMPSON Report Released Date/Time: Oct 16, 2023 04:45 PM Reporting Lab: [facility] [address] Performing Lab: [facility] [address] [place] ([facility]) BASIC METABOLI C PANEL+MG ANION GAP IN SERUM OR PLASMA 7 mmol/L 5 - 15 11/12 Specimen Type: PLASMA No comment entered. Ordering Provider: CLARI THOMPSON Report Released Date/Time: Oct 16, 2023 04:45 PM Reporting Lab: [facility] [address] Performing Lab: [facility] [address] [place] ([facility]) BASIC METABOLI C PANEL+MG GLOMERULAR FILTRATION RATE/1.73 SQ M.PREDICTE D [VOLUME RATE/AREA] IN SERUM, PLASMA OR BLOOD BY CREATININE -BASED FORMULA (CKD-EPI 2020) 88 60 11/12 Specimen Type: PLASMA No comment entered. Ordering Provider: CLARI THOMPSON Report Released Date/Time: Oct 16, 2023 04:45 PM Reporting Lab: [facility] [address] Performing Lab: [facility] [address] [place] ([facility]) ANTI-HAV IGG & IGM HEPATITIS A VIRUS IGM AB [PRESENCE] IN SERUM NEGATIVE 11/12 Specimen Type: SERUM No comment entered. Ordering Provider: CLARI THOMPSON Report Released Date/Time: Oct 16, 2023 04:45 PM Reporting Lab: [facility] [address] Performing Lab: [facility] [address] [place] ([facility]) ANTI-HAV IGG & IGM HEPATITIS A VIRUS IGG AB [PRESENCE] IN SERUM NEGATIVE 11/12 Specimen Type: SERUM No comment entered. Ordering Provider: CLARI THOMPSON Report Released Date/Time: Oct 16, 2023 04:45 PM Reporting Lab: [facility] [address] Performing Lab: [facility] [address] [place] ([facility]) HBsAg HEPATITIS B VIRUS SURFACE AG [PRESENCE] IN SERUM NEGATIVE 11/12 Specimen Type: SERUM No comment entered. Ordering Provider: CLARI THOMPSON Report Released Date/Time: Oct 16, 2023 04:45 PM Reporting Lab: [facility] [address] Performing Lab: [facility] [address] [place] ([facility]) ANTI-HBc TOTAL W/RELEX TO IGM HEPATITIS B VIRUS CORE AB [PRESENCE] IN SERUM NEGATIVE 11/12 Specimen Type: SERUM No comment entered. Ordering Provider: CLARI THOMPSON Report Released Date/Time: Oct 16, 2023 04:45 PM Reporting Lab: [facility] [address] Performing Lab: [facility] [address] [place] ([facility]) Vital Signs Combined list of inpatient and outpatient Vital Signs from Department of Defense and Veterans Affairs, ranging from 12 months to all on record, depending upon the facility. Vital Sign Value Date Comments Source SYSTOLIC BLOOD PRESSURE 118 10/09/2023 10:38:02 [place] ([facility]) DIASTOLIC BLOOD PRESSURE 63 10/09/2023 10:38:02 [place] ([facility]) PULSE OXIMETRY 94 10/09/2023 10:38:02 [place] ([facility]) WEIGHT 181.1 10/09/2023 10:38:02 [place] ([facility]) BMI 32kg/m2 10/09/2023 10:38:02 [place] [facility] ([facility]) [...] list of: 1) Encounters from Department of Veterans Affairs facilities going back up to thelast 18 months. 2) Encounters from the Department of Defense facilities going back up to 280 months. Location Location Details Encounter Type Encounter Number Reason For Visit Attending Provider ADM Date DC Date Status Disposition Source [place] [facility] Outpatient Encounter [id number] CRYSTAL OSBORNE 10/18 [facility] Outpatient Encounter [id number] 10/22 [facility] ([facility]) OFFICE O/P EST MOD 30-39 MIN [id number] Diagnos is: ICD-10- CM Z00.00 Encntr for general adult medical exam w/o abnorma l finding s
GERTRUDIS HTOMPSON 10/22 [place] ([facility]) [facility] Outpatient Encounter [id number] GERTRUDIS THOMPSON [facility] Outpatient Encounter [id number] Berkley FINLEY 05/06 [facility] Outpatient Encounter [id number] [facility] Encounter [id number] GERTRUDIS THOMPSON 06/11 [facility] Outpatient Encounter [id number] Aquiles SEGOVIA 06/18 [facility] ([facility]) OFFICE O/P EST LOW 20 MIN [id number] Diagnos is: ICD-10- CM D48.5 Neoplas m of uncerta in behavio r of skin
GERTRUDIS THOMPSON 06/24 [place] ([facility]) [place] ([facility]) UNLISTED SPEC DERM SVC/PX [id number] Diagnos is: ICD-10- CM D48.5 Neoplas m of uncerta in behavio r of skin
JULIANNE STERN 06/24 [place] ([facility]) [facility] Outpatient Encounter [id number] Diagnos is: ICD-10- CM D48.5 Neoplas m of uncerta in behavio r of skin
CHUSID,LANDON ECCA L 06/24 [facility] OFFICE O/P EST MOD 30 MIN [id number] Diagnos is: ICD-10- CM D48.5 Neoplas m of uncerta in behavio r of skin
SOUTOR,CAR OL A 07/01 [facility] Outpatient Encounter [id number] VERONICA KARIMI L 07/06 [facility] Outpatient Encounter [id number] Diagnos is: ICD-10- CM C44.41 Basal cell carcino ma of skin of scalp and neck
TAE HELLER 07/06 [facility] Outpatient Encounter [id number] 07/14 [facility] ([facility]) OFFICE O/P EST HI 40 MIN [id number] Diagnos is: ICD-10- CM Z00.00 Encntr for general adult medical exam w/o abnorma l finding s
GERTRUDIS THOMPSON 10/08 [facility] ([facility]) [facility] Outpatient Encounter [id number] 12/01 [facility] Outpatient Encounter [id number] NICHO JAMES RK R 12/21 [facility] Outpatient Encounter [id number] Denzel RUIZ 12/21 [facility] OFFICE O/P NEW MOD 45 MIN [id number] Diagnos is: ICD-10- CM R33.9 Retenti on of urine, unspeci fied
GINA STONE 12/28 [facility] Outpatient Encounter [id number] 01/01 [facility] Social History Combined list of available smoking, tobacco, and other social history from Department of Defense and Veterans Affairs facilities. Social History Type Response Date Comment Sourc e Tobacco smoking status NHIS [facility]CO FORMER USER 10/09/2023 [place] ([facility]) History of tobacco use VA-TOBACCO QUIT 5 TO < 15 YRS 10/09/2023 [place] ([facility]) History of tobacco use VA-TOBACCO FORMER USER 10/22/2022 [place] ([facility]) History of tobacco use VA-TOBACCO FORMER USER 10/11/2021 [place] ([facility]) History of tobacco use VA-TOBACCO FORMER USER 10/11/2020 [place] ([facility]) History of tobacco use VA-TOBACCO QUIT 1 TO < 5 YRS 09/13/2019 [place] ([facility]) History of tobacco use VA-TOBACCO FORMER USER 10/09/2017 [place] ([facility]) History of tobacco use CURRENT TOBACCO USER 10/08/2017 [place] ([facility]) History of tobacco use FORMER TOBACCO US ER 7Y OR GREATER 10/02/2016 [place] ([facility]) History of tobacco use CURRENT TOBACCO USER 09/21/2015 [place] ([facility]) Plan of Care List of future care activities from Department of Veterans Affairs facilities. Additional future care activities may be listed in the Assessment and Plan section. Date/Time Care Activity Care Activity Detail Facili ty 03/04/2024 AMBULATORY - SURGERY AMBULATORY - SURGERY [facility]
--- OUTSIDE RECORDS SUMMARY | 2024-01-02 08:32 | XMS_ITS | Encounter Summary ---
Author Name [facility] [facility] [place] [facility] [place] [facility] [place] Address [address] [place] [address] Care Team Providers Care Math And Sciences Department Chair Name Role Phone RAI THOMPSON Primary Care [...] Serrato's Name Patient's Relationship to Policy Serrato [facility] [place] [employer] PLAN N MEDIC ARE SUPPL EMENT Mar 03, 2015 PLAN N [id number] [phone] RADHA SIMON PATIENT MEDICARE (WNR) MEDICARE (M) PART B Mar 03, 2015 PART B [id number] RADHA SIMON PATIENT MEDICARE (WNR) MEDICARE (M) PART A Jan 01, 2011 PART A [id number] RADHA SIMON PATIENT Selected Encounter This section includes the information on record at [place] for the Encounter. Date/Time Encounter Type Encounter Description Reason Provider Source Dec 22, 2023 12:33 PM Outpatient Encounter TELEPHONE TRIAGE JULIENNE JAMES Encounter Template Text not used by [place] Plan of Treatment: Future Appointments (+ 6 months) and Future Tests (+/- 45 days) The Plan of Treatment section includes future care activities for the patient from [facility] [place] [facility] This section includes future appointments and future orders which are active, pending or scheduled. Future Appointments This section includes appointments that were scheduled to occur 6 months from the date of the Encounter, up to a maximum of 20 appointments. The data comes from all [place] treatment facilities. Appointment Date/Time Appointment Type Appointme nt Facility Name Dec 29, 2023 12:30 PM AMBULATORY - SURGERY [facility] Mar 04, 2024 10:00 AM AMBULATORY - SURGERY [facility] Encounter Notes: All associated encounter notes This section contains the clinical notes associated to the Encounter. Date/Time Encounter Note(s) Provider Source Dec 22, 2023 03:00 PM ADDENDUM: LOCAL TITLE: Addendum STANDARD TITLE: ADDENDUM DATE OF NOTE: DEC 22, 2023@15:00:43 ENTRY DATE: DEC 22, 2023@15:00:44 AUTHOR: VEE GAN COSIGNER: URGENCY: STATUS: COMPLETED Phoned . Hospital notes not available in [facility]. HX: Note 12/22/23 Ambulatory summary at [facility] U[facility]: Mr. Loo is a very pleasant 75-year-old [...] really interested in pursuing any further intervention. ASSESSMENT: 1)ED encounter -Location: [facility] - went to ED because he had a pain under his ribs. -It was found that he had an overextended bladder -Prostate was swollen up -Scheduled to have catheter removed on Friday at 1130 with private insurance. -Goal:To do whatever it takes so this doesn't happen again 2)[facility] -[place] notes he has not been following up with [facility] as symptoms had previously resolved. EDUCATION: -Educated on the [place] -Gave eligibility #: [phone] -Gave 72 hour #: [phone] -Explained to the , if he is eligible, the [place] can help cover the payment for the ED visit and hospital stay, but does NOT cover any appointment scheduled after discharge PLAN: -Call 72 hour line -PCP review for requested Urology consult -[place] requests to be seen at [facility] if able. Unable to get a local appt till late March with private insurance. /es/ Vee Gan RN [facility] Signed: 12/22/2023 15:11 Receipt Acknowledged By: 12/22/2023 17:34 /es/ RAI THOMPSON MD PHYSICIAN --- Original Document --- 12/22/23 CCC: CLINICAL TRIAGE: Patient Demographics Patient Name: RADHA SIMON Patient Primary Address: [address] [place] [address] [place] [address] Patient Primary Phone: [phone] Patient : 1945 Patient Age: 78 Caller/Recipient Relation to Patient: Self Emergency Contact: CARIDAD SIMON Triage Summary Conducted triage/discussed symptoms Pain Score: 0 (No Pain) Utilized the Triage Tool: No Nurse's Recommendation / WHEN: Other Nurse's Other / WHEN: 1 week Nurse's Recommendation / WHERE: [facility] Nurse's Other / WHERE: ER F/U Patient Disposition Patient/Caregiver agrees to plan of care: Yes Patient WHERE: [facility] Patient WHEN: Other Other - Patient When Disposition: 1 week Nursing Plan and Disposition Referred Patient for In-Person Appt Transferred patient to Sched & Admin-Apt Nurse Summary Nurse Summary: ########################### ########################### ######################### ########### VISN 23 TRIAGE NURSE NOTES PATIENT CONCERN/DURATION/ONSET: Ray c/o being seen on Friday at local ED for abdominal pain. It was discovered that his bladder was full and that his prostate was enlarged and most likely causing the retention. [place] had an indwelling cath placed and set home and [facility] getting the [facility] out in 3-4 days. denies fever, retention, pain. WHAT HAS PATIENT TRIED TO TREAT THE SYMPTOMS: zavala cath in place is draining bladder. HISTORY/PREVIOUS TREATMENT: BPH, CA prostate. WHAT IS PATIENT GOAL FOR THE CALL: Treatment for urine retention and ED F/U with cath removal. Was Care Now considered (TELE or VVC)? 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 PRIMARY CARE PHYSICIAN DISPOSITION: Recommended triage is >24hrs < 1 week for ED F/U about urine retention and indwelling cath in place and removal secondary to non-urgent symptoms. Unable to schedule appointment in recommended time frame per production control scheduler, forwarding to PACT for further care management. Advised ER worsening s/s as discussed with . Vet verbalizes understanding of plan of care. Best contact for is (Verified). (Caller could accurately summarize the agreed upon plan of care as discussed in the education log portion of this note.) Per policy, automated recommendations for an ''appointment'' indicates an interaction (virtual or in-person) with the care team. This note was created by a [address] robotic welding operator. Please do not alert this nurse by adding as a signer for future communications. Alerts are not monitored by this user, please reach out to [facility] instead if indicated. Clinical Contact Center Codes Clinic/Location: V23 MSP PHONE CCC RN IMPORTANT: This note was created by [facility] Clinical Contact Center staff. Please do not alert the staff member by adding them as a signer for future communications. Alerts are not monitored by this user. /alma/ JULIENNE JAMES RN, BSN VISN 23 DAYTIME HOSPITALITY ASSOCIATE Signed: 12/22/2023 12:33 12/22/2023 ADDENDUM STATUS: UNSIGNED You may not VIEW this UNSIGNED Addendum. ELVIAVEE [facility] Dec 22, 2023 12:33 PM RN PROGRESS NOTE: LOCAL TITLE: CCC: CLINICAL TRIAGE STANDARD TITLE: RN PROGRESS NOTE DATE OF NOTE: DEC 22, 2023@12:33:47 ENTRY DATE: DEC 22, 2023@12:33:47 AUTHOR: JULIENNE JAMES COSIGNER: URGENCY: STATUS: COMPLETED CCC: CLINICAL TRIAGE Has ADDENDA Patient Demographics Patient Name: RADHA SIMON Patient Primary Address: [address] [place] [address] [place] [address] Patient Primary Phone: [phone] Patient : 1945 Patient Age: 78 Caller/Recipient Relation to Patient: Self Emergency Contact: CARIDAD SIMON Triage Summary Conducted triage/discussed symptoms Pain Score: 0 (No Pain) Utilized the Triage Tool: No Nurse's Recommendation / WHEN: Other Nurse's Other / WHEN: 1 week Nurse's Recommendation / WHERE: [facility] Nurse's Other / WHERE: ER F/U Patient Disposition Patient/Caregiver agrees to plan of care: Yes Patient WHERE: [facility] Patient WHEN: Other Other - Patient When Disposition: 1 week Nursing Plan and Disposition Referred Patient for In-Person Appt Transferred patient to Sched & Admin-Apt Nurse Summary Nurse Summary: ########################### ########################### ######################### ########### VISN 23 TRIAGE NURSE NOTES PATIENT CONCERN/DURATION/ONSET: [place] c/o being seen on Friday at local ED for abdominal pain. It was discovered that his bladder was full and that his prostate was enlarged and most likely causing the retention. had an indwelling cath placed and set home and advised to [facility] getting the cath out in 3-4 days. [place] denies fever, retention, pain. WHAT HAS PATIENT TRIED TO TREAT THE SYMPTOMS: zavala cath in place is draining bladder. HISTORY/PREVIOUS TREATMENT: BPH, CA prostate. WHAT IS PATIENT GOAL FOR THE CALL: Treatment for urine retention and ED F/U with cath removal. Was Care Now considered (TELE or VVC)? 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 PRIMARY CARE PHYSICIAN DISPOSITION: Recommended triage is >24hrs < 1 week for ED F/U about urine retention and indwelling cath in place and removal secondary to non-urgent symptoms. Unable to schedule appointment in recommended time frame per production control scheduler, forwarding to PACT for further care management. Advised ER worsening s/s as discussed with . Vet verbalizes understanding of plan of care. Best contact for [place] is (Verified). (Caller could accurately summarize the agreed upon plan of care as discussed in the education log portion of this note.) Per policy, automated recommendations for an ''appointment'' indicates an interaction (virtual or in-person) with the care team. This note was created by a [address] robotic welding operator. Please do not alert this nurse by adding as a signer for future communications. Alerts are not monitored by this user, please reach out to [facility] Leadership instead if indicated. Clinical Contact Center Codes Clinic/Location: [address] PHONE CCC RN IMPORTANT: This note was created by [facility] Clinical Contact Center staff. Please do not alert the staff member by adding them as a signer for future communications. Alerts are not monitored by this user. /alma/ JULIENNE JAMES RN, BSN VISN 23 DAYTIME HOSPITALITY ASSOCIATE Signed: 12/22/2023 12:33 12/22/2023 ADDENDUM STATUS: COMPLETED Phoned . Hospital notes not available in [facility]. HX: Note 12/22/23 Ambulatory summary at [facility] U[facility]: Mr. Loo is a very pleasant 75-year-old [...] really interested in pursuing any further intervention. ASSESSMENT: 1)ED encounter -Location: [facility] - went to ED because he had a pain under his ribs. -It was found that he had an overextended bladder -Prostate was swollen up -Scheduled to have catheter removed on Friday at 1130 with private insurance. -Goal:To do whatever it takes so this doesn't happen again 2)[facility] -[place] notes he has not been following up with [facility] as symptoms had previously resolved. EDUCATION: -Educated on the [place] -Gave eligibility #: [phone] -Gave 72 hour #: [phone] -Explained to the , if he is eligible, the [place] can help cover the payment for the ED visit and hospital stay, but does NOT cover any appointment scheduled after discharge PLAN: -Call 72 hour line -PCP review for requested Urology consult -[place] requests to be seen at [facility] if able. Unable to get a local appt till late March with private insurance. /es/ Vee Gan RN [facility] Signed: 12/22/2023 15:11 Receipt Acknowledged By: 12/22/2023 17:34 /alma/ RAI THOMPSON MD PHYSICIAN 12/22/2023 ADDENDUM STATUS: COMPLETED Urology consult placed /alma/ RAI THOMPSON MD PHYSICIAN Signed: 12/22/2023 17:35 JULIENNE JAMES [facility]
--- OUTSIDE RECORDS SUMMARY | 2024-01-02 08:33 | XMS_ITS | Clinical Summary ---
Author Organization [facility] Address [place], [place] [address] Care Team Providers Care Family Life Counselor Name Role Phone Sobia Muhammad MD Unavailable + Sobia Muhammad MD Unavailable + Cain Garcia MD Primary Care Provider Allergies No known active allergies Medications Medication Sig Dispensed Refills Start Date End Date Status NebulizerIndicatio ns:Other emphysema (HC) Nebulizer. Frequency of use: daily; Medication: Duoneb Length of need: 99 months 1 Device 01/20/2018 Active aspirin chewable 81 mg chewable tablet Take 1 tablet by mouth once daily with a meal. 30 tablet 1 09/28/2019 Active acetaminophen (TYLENOL EXTRA STRENGTH) 500 mg tabletIndications: pain Take 500 mg by mouth every 6 hours if needed. Max acetaminophen dose: 4000mg in 24 hrs. Indications: Pain Active magnesium 250 mg tab Take 250 mg by mouth once daily. Active multivitamin/iron/ folic acid (CENTRUM COMPLETE ORAL) Take 1 capsule by mouth. Active cholecalciferol (VITAMIN D3) 1,000 unit capsule Take 1,000 Units by mouth once daily. Active albuterol HFA 90 mcg/actuation inhalerIndications :COPD mixed type (HC) Inhale 2 Puffs by mouth every 4 hours if needed. 3 Inhaler 3 11/16/2019 Active Mucus Clearing Device deviIndications:CO PD mixed type (HC) As directed. Green high flow acapella device to facilitate mucous clearance in COPD. Twice daily with duoneb ALVINA: 99 1 Device 11/16/2019 Active tamsulosin (FLOMAX) 0.4 mg capsuleIndications :Urinary retention Take 1 Capsule (0.4 mg) by mouth once daily after a meal. 90 Capsule 3 03/09/2021 Active fluticasone propion-salmeteroL (Advair Diskus) 250-50 mcg/Dose diskus inhalerIndications :Chronic obstructive pulmonary disease, unspecified COPD type (HC) Inhale 1 Puff by mouth 2 times daily. 3 Each 3 03/09/2021 Active tiotropium bromide (SPIRIVA RESPIMAT) 2.5 mcg/actuation mist for inhalationIndicati ons:Chronic obstructive pulmonary disease, unspecified COPD type (HC) Inhale 1 Puff by mouth once daily. 90 Each 3 03/09/2021 Active sennosides (Senna) 8.6 mg tabletIndications: Constipation, unspecified constipation type Take 2 Tablets (17.2 mg) by mouth 2 times daily. 360 Tablet 3 04/24/2021 Active albuterol-ipratrop ium (DUONEB) (2.5-0.5 mg) in 3 mL NEBULIZATION solutionIndication s:COPD mixed type (HC) Inhale 3 mL via a nebulizer every 6 hours if needed for Shortness of Breath 1st choice. 540 mL 3 05/03/2021 Active omeprazole 20 mg tabletIndications: Chronic GERD Take 1 Tablet (20 mg) by mouth once daily before a meal. 39 Tablet 10/31/2022 Active Active Problems Problem Noted Date Diagnosed Date [...] Encounters Date Type Department Care Team Description 12/23/2023 11:20 AM CDT Office Visit [facility] [address] [place] [address] Cain Garcia MD ER Follow up ([facility], 12/20/2023, abdominal pain) 12/23/2023 Travel 12/20/2023 Orders Only [facility] Scanner 1 scan: (1-Ord) [facility], ABDOMEN PELVIS W/CONTRAST, 12/20/2023 12/20/2023 Orders Only [facility] Scanner 1 scan: (1-Ord) [facility], US ABDOMEN LIMITED, 12/20/2023 12/20/2023 Orders Only [facility] Scanner 1 scan: (1-Ord) [facility], URINE CULTURE , 12/20/2023 12/20/2023 Orders Only [facility] Scanner 1 scan: (1-Ord) [facility], MULTIPLE LAB RESULTS , 12/20/2023 12/02/2023 3:20 PM CDT Office Visit [facility] [address] [place] [address] Cain Garcia MD Medicare ANNUAL (subsequent) Visit [...] 0 12/02/2023 Social Connections Answer Date Recorded Do you often feel lonely or isolated from those around you? 0 12/02/2023 Financial Resource Strain Answer Date R ecorded Difficulty of Paying Living Expenses 3 12/02/2023 Difficulty of Paying Living Expenses Not on file 12/02/2023 Food Insecurity Answer Date Recorded Do you worry your food will run out before you are able to buy more? 1 12/02/2023 Transportation Needs Answer Date Record ed Does lack of transportation keep you from medica l appointments? 1 12/02/2023 Does lack of transportation keep you from work, meetings or getting things that you need? 1 12/02/2023 Housing Stability Answer Date Recorded What is your housing situation today? 1 12/02/2023 Sex and Gender Information Value Date Recorded Sex Assigned at Not on file Gender Identity Not on file Sexual Orientation Not on file Obstetrics History Last Filed Vital Signs Vital Sign Reading Time Taken Comments Blood Pressure 125/75 12/23/2023 11:35 AM CDT Pulse 67 12/23/2023 11:19 AM CDT Temperature 36.5 ??C (97.7 ??F) 10/30/2022 9:05 AM CD T Respiratory Rate 16 05/10/2022 11:05 AM BEHAVIORAL ASSISTANT Oxygen Saturation 94% 12/23/2023 11:19 AM CDT Inhaled Oxygen Concentration - - Weight 83.9 kg (185 lb) 12/23/2023 11:19 AM CDT Height 160 cm (5' 3) 12/02/2023 3:10 PM CDT Body Mass Index 32.77 12/02/2023 3:10 PM CDT Plan of Treatment Upcoming Encounters Date Type Department Care Team (Late st Contact Info) Description 03/11/2024 11:15 AM BEHAVIORAL ASSISTANT Office Visit [facility] [address] [place] [address] Rossi Arauz MD [address] [place] [address] Health Maintenance Due Date Last Done Comments [...] exists Tetanus booster 10/11/2030 10/11/2020, 11/01, 06/02/2000 Hepatitis C screening for ag e 18-79 Completed 02/14/2015 Tdap Completed 10/11/2020, 11/16/2009 Zoster (shingles) series for age 50+ Completed 01/12/2021, 10/11/2020, 09/01/2015 Pneumococcal series for age 65+ Completed 12/02/2023, 09/01/2015, 01/29/2011 Procedures Procedure Name Priority Date/Time Associated Diagnosis Comments SCAN-PATHOLOGY REPORT 12/20/2023 12:00 AM CDT SCAN-LABORATORY REPORT 12:00 AM CDT SCAN-CT INTERPRETATION 12:00 AM CDT SCAN-ULTRASOUND REPORT 12:[address] CHEST WO Routine 03/09/2020 8:31 AM BEHAVIORAL ASSISTANT Pneumonitis ANTI HCV Routine 02/14/2015 8:53 AM BEHAVIORAL ASSISTANT Need for hepatitis C screening test from Last 3 Months or Most Recently Relevant to Health Maintenance Results * SCAN-PATHOLOGY REPORT (12/20/2023 12:00 AM CDT) Scanner OTHER * SCAN-LABORATORY REPORT (12/20/2023 12:00 AM CDT) Scanner OTHER * SCAN-ULTRASOUND REPORT (12/20/2023 12:00 AM CDT) Anatomical Region Laterality Modality Other Scanner OTHER * SCAN-CT INTERPRETATION (12/20/2023 12:00 AM CDT) Anatomical Region Laterality Modality Other Scanner OTHER * CT CHEST WO (03/09/2020 8:31 AM BEHAVIORAL ASSISTANT) Anatomical Region Laterality Modality CHEST, THORAX, HEART Computed To mography 03/09/2020 8:31 AM BEHAVIORAL ASSISTANT Narrative 03/09/2020 9:00 AM BEHAVIORAL ASSISTANT EXAM: CT CHEST WO LOCATION: [facility] IMAGING DATE/TIME: 03/09/2020 8:31 AM INDICATION: Pneumonitis [...] - 03/09/2020 EXAM: CT CHEST WO LOCATION: [facility] IMAGING DATE/TIME: 03/09/2020 8:31 AM INDICATION: Pneumonitis [...] Diagnostic criteria for idiopathic pulmonary fibrosis: a [facility] White Paper. Lancet Respir Med 2018; 6: [...] Consider referral to lung nodule clinic. Joe Art DO CT * ANTI HCV [03184.2] (02/14/2015 8:53 AM BEHAVIORAL ASSISTANT) HEPATITIS C ANTIBODY Non-Reacti ve Non-Reacti ve 02/14/2015 4:46 PM BEHAVIORAL ASSISTANT [facility] Blood specimen (specimen) BLOOD SPECIMEN / Unknown Venipuncture / Unknown 02/14/2015 8:53 AM BEHAVIORAL ASSISTANT 02/14/2015 8:54 AM BEHAVIORAL ASSISTANT Narrative [facility] - 02/14/2015 4:46 PM BEHAVIORAL ASSISTANT Antibodies to HCV not detected; does not exclude the possibility of exposure to HCV. Cain Garcia MD [facility] [address] [place] [address], [place] from Last 3 Months or Most Recently Relevant to Health Maintenance Advance Directives * Full Code (Latest Code Status on File) Date Activated Date Inactivated Comments 10/26/2019 2:45 PM 10/27/2019 12:18 PM Question Answer Comments Code Status Discussion: Not Discussed Care Teams Family Life Counselor Relationship Specialty Start Date End Date Cain Garcia MD [address] [place] [id number] PCP - General Family Practice 03/13/21 Sobia Muhammad MD [address] [place] [address] Dermatology 02/11/12 Sobia Muhammad MD [address] [place] [address] (work) Dermatology Dermatology 06/11/12
--- OUTSIDE RECORDS SUMMARY | 2024-01-02 08:33 | XMS_ITS | Data Portability ---
Author Organization [place] [facility] [place] [facility] Address [address] [place] [address] Assessment Encounter Date Assessment Date Assessment LastModified [...] Available [facility] [address], [place], [address], 02/02/2020 18:05:51 02/02/2020 urina lysis , dipst ick pH-Status 6.5 Not Available [facility] [address], [place], [address], 02/02/2020 18:05:51 02/02/2020 urina lysis , dipst ick Performed by ag[place]ito park PA-C Not Available [facility] [address], [place], [address], 02/02/2020 18:05:51 Result Notes None recorded. Procedures Surgical History Date Name Laterality Status Provider Name and Address Organization Details Recorded Time 0 Urodynamic Studies completed LUCIEN Ballesteros [address] [place] [address],[address], [place], [address], [facility] 02/02/2020 16:59:55 Imaging Results None recorded. [...] Updated DateTime 02/11/2020 160.02 cm 29.6 kg/m2 84445.93 g Anish Ortega [facility] 02/11/2020 13:52:19 Social History Question Answer Notes LastModified by Organizat ion Details LastModified Time Tobacco Smoking Status Former Smoker Anish Ortega [facility] 02/11/2020 13:52:53 What [...] History Nothing Reported. Medical History Condition Response Sexually Transmitted Infection N Diabetes N Bleeding Disorder N High Blood Pressure N Kidney Stones N Cancer N Lung Disease N Depression N High Cholesterol N GERD/Acid Reflux N Heart Disease N Immunizations Vaccine Type Date Status Provider Name and Address Organization Details Recorded Time Pneumococcal conjugate PCV 13 09/01/2015 completed BALDO Iverson [facility] 02/29/2020 11:29:39 Past Encounters Encounter ID Performer Location Encounter Start Date Encounter Closed Date Diagnosis/Indication Diagnosis SNOMED-CT Code Diagnosis ICD10 Code [id number] LUCIEN Ballesteros [facility] [address] [place] [address] 02/02/2020 14:31:51 02/03/2020 08:44:58 Lower urinary tract symptoms due to benign prostatic hypertrophy 7893991844 9101 N40.1 [id number] Koffi Padilla MD [facility] [address] [place] [address] 02/11/2020 12:51:00 02/11/2020 14:34:18 Lower urinary tract symptoms due to benign prostatic hypertrophy [id number] 9101 N40.1 Malignant tumor of prostate 682352146 C61 Health Concerns Section Related Observation LastModified by Organization Detai ls LastModified Time None Recorded Concern Status LastModified by Organization Details LastModified Time None Recorded Advance Directives Directive None Recorded Payers Encounter Date Sequence Insurance Name Policy Number Policy Serrato Covered Member ID Serrato Member ID Guarantor Name 02/02/2020 1 [facility] (MEDICARE REPLACEMENT/A DVANTAGE - PPO) [id number] Luisito Caldera [id number] Luisito Caldera 02/11/2020 1 [facility] (MEDICARE REPLACEMENT/A DVANTAGE - PPO) [id number] Luisito Caldera [id number] Luisito L Caldera Notes Date Note Type [...] any further intervention. Koffi Padilla MD [address], [place], [address], [facility] 05/22/2020 10:49:13
--- OUTSIDE RECORDS SUMMARY | 2024-01-02 08:33 | XMS_ITS | Encounter Summary ---
Author Name [facility] [place] Organization [place] Address [address] [place] [id number] Care Team Providers Care Certified Health Education Specialist Name Role Phone RAI THOMPSON Primary [...] Serrato's Name Patient's Relationship to Policy Serrato [employer] MEDIGAP PLAN N MEDIC ARE SUPPL EMENT Mar 03, 2015 PLAN N [id number] [phone] RADHA SIMON PATIENT MEDICARE (WNR) MEDICARE (M) PART B Mar 03, 2015 PART B [id number] RADHA SIMON PATIENT MEDICARE (WNR) MEDICARE (M) PART A Jan 01, 2011 PART A [id number] RADHA SIMON PATIENT Selected Encounter This section includes the information on record at [place] for the Encounter. Date/Time Encounter Type Encounter Description Reason Pro vider Source Dec 02, 2023 12:00 AM Outpatient Encounter EVENT (HISTORICAL) IHE Encounter Template Text not used by [place] Plan of Treatment: Future Appointments (+ 6 months) and Future Tests (+/- 45 days) The Plan of Treatment section includes future care activities for the patient from all [place] treatmentfacilities. This section includes future appointments and future orders which are active, pending or scheduled. Future Appointments This section includes appointments that were scheduled to occur 6 months from the date of the Encounter, up to a maximum of 20 appointments. The data comes from all [place] treatment facilities. Appointment Date/Time Appointment Type Appointme nt Facility Name Dec 22, 2023 07:13 PM [facility] Dec 29, 2023 12:30 PM [facility] Mar 04, 2024 10:00 AM AMBULATORY - SURGERY [facility] Lab Results: +/- 30 days of the encounter This section includes the Chemistry and Hematology Lab Results on record with [place] for the patient. Radiology Reports and Pathology Reports are provided separately, in subsequent sections. Lab Results This section contains the Chemistry/Hematology Results that were resulted 30 days before or 30 daysafter the date of the Encounter. Date/Time Source Result Type Result - Unit Interpretation Reference Range Comment Nov 13, 2023 10:11 AM JARRED ([facility]) AST/SGOT Specimen Type: PLASMA No comment entered. Ordering Provider: RAI THOMPSON Report Released Date/Time: Oct 16, 2023 04:45 PM Reporting Lab: [facility] [id number] Performing Lab: [facility] [phone] AST/SGOT 29 U/L 11-34 Nov 13, 2023 10:11 AM [facility] ([facility]) ALT/SGPT Specimen Type: PLASMA No comment entered. Ordering Provider: RAI THOMPSON Report Released Date/Time: Oct 16, 2023 04:45 PM Reporting Lab: [facility] [id number] Performing Lab: [facility] [phone] ALT/SGPT 24 U/L <44 Nov 13, 2023 10:11 AM J[facility]ED ([facility]) BILIRUBIN TOTAL W/REFLEX TO DIRECT Specimen Type: PLASMA No comment entered. Ordering Provider: RAI THOMPSON Report Released Date/Time: Oct 16, 2023 04:45 PM Reporting Lab: [facility] [id number] Performing Lab: [facility] [id number] BILIRUBIN, TOTAL 1.0 mg/dL 0.2-1.2 Nov 13, 2023 10:11 AM PAULINE ([facility]) ALKALINE PHOSPHATASE Specimen Type: PLASMA No comment entered. Ordering Provider: RAI THOMPSON Report Released Date/Time: Oct 16, 2023 04:45 PM Reporting Lab: [facility] [phone] Performing Lab: [facility] [phone] ALKALINE PHOSPHATASE 57 U/L 40-150 Nov 13, 2023 10:11 AM PA[facility]INE ([facility]) GAMMA GTP Specimen Type: PLASMA No comment entered. Ordering Provider: RAI THOMPSON Report Released Date/Time: Oct 16, 2023 04:45 PM Reporting Lab: [facility] [phone] Performing Lab: [facility] [id number] GAMMA GTP 47 U/L <54 Nov 13, 2023 10:11 AM [facility]INE ([facility]) ANTI-HEP C(EIA) Specimen Type: SERUM No comment entered. Ordering Provider: RAI THOMPSON Report Released Date/Time: Oct 16, 2023 04:45 PM Reporting Lab: [facility] [phone] Performing Lab: [facility] [phone] ANTI-HEP C(EIA) NEGATIVE NEGATIVE Nov 13, 2023 10:11 AM PAULINE ([facility]) BASIC METABOLIC PANEL+MG Specimen Type: PLASMA No comment entered. Ordering Provider: RAI THOMPSON Report Released Date/Time: Oct 16, 2023 04:45 PM Reporting Lab: [facility] [id number] Performing Lab: [facility] [phone] CREATININE 0.9 mg/dL 0.7-1.2 UREA NITROGEN 11 mg/dL 8-26 GLUCOSE 93 mg/dL 70-100 SODIUM 133 mmol/L L 136-145 POTASSIUM 4.1 mmol/L 3.5-5.1 CHLORIDE 101 mmol/L 98-107 CO2 25 mmol/L 22-29 CALCIUM 9.3 mg/dL 8.4-10.2 MAGNESIUM 1.9 mg/dL 1.6-2.6 ANION GAP 7 mmol/L 5-15 .CREAT EGFR(CKD-EPI) 88 >60 Nov 13, 2023 10:11 AM PAULINE ([facility]) ANTI-HAV IGG & IGM Specimen Type: SERUM No comment entered. Ordering Provider: RAI THOMPSON Report Released Date/Time: Oct 16, 2023 04:45 PM Reporting Lab: [facility] [id number] Performing Lab: [facility] [phone] ANTI-HAV (IgM) NEGATIVE NEGATIVE ANTI-HAV (IgG) NEGATIVE NEGATIVE Nov 13, 2023 10:11 AM PAULINE ([facility]) ANTI-HBc TOTAL W/RELEX TO IGM Specimen Type: SERUM No comment entered. Ordering Provider: RAI THOMPSON Report Released Date/Time: Oct 16, 2023 04:45 PM Reporting Lab: [facility] [phone] Performing Lab: [facility] [phone] ANTI-HBc(TOTAL ) NEGATIVE NEGATIVE Nov 13, 2023 10:11 AM PAULINE ([facility]) HBsAg Specimen Type: SERUM No comment entered. Ordering Provider: RAI THOMPSON Report Released Date/Time: Oct 16, 2023 04:45 PM Reporting Lab: [facility] [phone] Performing Lab: [facility] [phone] HBsAg NEGATIVE NEGATIVE Immunizations: All administered on the encounter date This section contains immunizations associated to the Encounter. Immunization Series Date Issued Reaction Comments PNEUMOCOCCAL CONJUGATE PCV20 , POLYSACCHARIDE UFV065 CONJUGATE, ADJUVANT, PF Dec 02, 2023
--- OUTSIDE RECORDS SUMMARY | 2024-01-02 08:33 | XMS_ITS | Encounter Summary ---
Author Name [facility] [place] [facility] [place] [facility] [place] Address [address] [place] [address] Care Team Providers Care Issue Clerk Name Role Phone RAI THOMPSON Primary Care [...] Serrato's Name Patient's Relationship to Policy Serrato [employer] MEDIGAP PLAN N MEDIC ARE SUPPL EMENT Mar 03, 2015 PLAN N [id number] [phone] RADHA SIMON PATIENT MEDICARE (WNR) MEDICARE (M) PART B Mar 03, 2015 PART B [id number] RADHA SIMON PATIENT MEDICARE (WNR) MEDICARE (M) PART A Jan 01, 2011 PART A [id number] RADHA SIMON PATIENT Selected Encounter This section includes the information on record at [place] for the Encounter. Date/Time Encounter Type Encounter Description Reason Pro vider Source Jan 02, 2024 07:42 AM Outpatient Encounter TELEPHONE TRIAGE IHE Encounter Template Text not used by [facility] Plan of Treatment: Future Appointments (+ 6 months) and Future Tests (+/- 45 days) The Plan of Treatment section includes future care activities for the patient from all [place] treatmentfacilities. This section includes future appointments and future orders which are active, pending or scheduled. Future Appointments This section includes appointments that were scheduled to occur 6 months from the date of the Encounter, up to a maximum of 20 appointments. The data comes from all [place] treatment facilities. Appointment Date/Time Appointment Type Appointme nt Facility Name Mar 04, 2024 10:00 AM AMBULATORY - SURGERY [facility] Encounter Notes: All associated encounter notes This section contains the clinical notes associated to the Encounter. Date/Time Encounter Note(s) Provider Source Jan 02, 2024 07:42 AM RN PROGRESS NOTE: LOCAL TITLE: CCC: CLINICAL TRIAGE STANDARD TITLE: RN PROGRESS NOTE DATE OF NOTE: JAN 02, 2024@07:42:32 ENTRY DATE: JAN 02, 2024@07:42:32 AUTHOR: SHASHA SCHULZ HS EXP COSIGNER: URGENCY: STATUS: COMPLETED Patient Demographics Patient Name: RAHDA SIMON Patient Primary Address: [address] [place] [address] [place] [address] Patient Primary Phone: [phone] Patient : 1945 Patient Age: 78 Call Back Number: [phone] Caller/Recipient Relation to Patient: Self Emergency Contact: CARIDAD SIMON Triage Summary Conducted triage/discussed symptoms Utilized the Triage Tool: Yes Chief Complaint: Urinary Retention System WHEN: Within 24 Hours Nurse's Recommendation / WHEN: Now System WHERE: Clinic Nurse's Recommendation / WHERE: ED Other WHEN/WHERE modifier reason: Distance from Hospital Patient Disposition Patient/Caregiver agrees to plan of care: Yes Nursing Plan and Disposition Referred patient to higher level of care Instructed to go to Emergency Room (ER) Advised of Financial Disclaimer: Patient advised that recommendation for care provided during the call does not constitute an approval or authorization for payment by the [place] or its staff. Patient advised to report a community ED visit to the [facility] Office of Community Care at within 72 hours. Other course(s) of action Provided guidance for worsening symptoms: *Caller/Patient* advised to call facilities [place] Clinical Contact Center or seek immediate medical attention for new or worsening symptoms Nurse Summary Nurse Summary: [place] provided three identifiers for chart access/review. PATIENT CONCERN/DURATION/ONSET: c/o inability to start urine stream; last urination was last night before going to bed. Positive for intermittent abdominal discomfort, chills/sweats during night, lightheadedness Denies flank pain WHAT HAS PATIENT TRIED TO TREAT THE SYMPTOMS: nothing HISTORY/PREVIOUS TREATMENT: recent indwelling catheter removal, BPH, prostate cancer, WHAT IS PATIENT GOAL FOR THE CALL: direction for care Was Virtual Care Visit considered? No NURSE SANE DISPOSITION: Recommended triage is ER Now secondary to: medical history and symptoms [place] verbalizes understanding and agrees with plan of care. Disposition: Informed of the availability of [place] ER 23/09 or local ER without pre-authorization of care/payment. Due to distance from [place] ER, advised to present to local ER facility and call [facility] Call Center at ([phone]) within 72 hours of crzhy-sn-coyfrrh-of-care to report visit. agrees with plan of care and states he will go to local ER now. MM sent to PACT for follow up Education: Home education and signs/symptoms to watch for provided as per below ([facility]) with [place] verbalizing understanding of education and recommendations Best contact for is [phone] This note was created by a [address] form setter steel pan forms. Please do not alert this nurse by adding as a signer for future communications. Alerts are not monitored by this user, please reach out to [facility] Leadership instead if indicated. Clinical Contact Center Codes Clinic/Location: [address] PHONE [facility] RN Decision Support System Output: Triage Complete Triage Date: 01/02/2024, 07:38 AM Triage Note: Decision Support Tool Used: TXCC Phone Triage 02 Jan 2024 12:33:27 +0000 [facility] Demographics 79 y/o Male Results CC: Urinary Retention Software suggested: Within 24 Hours Software suggested follow-up location: Clinic Values and Measures Duration of CC: 2 Hours Positive Responses HPI: bladder feels full HPI: incomplete bladder emptying VS: temperature not taken Negative Responses Denies: HPI: abdominal pain, moderate to severe Denies: HPI: back injury, recent Denies: HPI: back pain, moderate to severe Denies: HPI: bladder pain, moderate to severe Denies: HPI: dysuria Denies: HPI: groin numbness, worsening Denies: HPI: hematuria Denies: HPI: increased urinary frequency, but small amounts Denies: HPI: leg weakness, bilateral, worsening Denies: HPI: numbness, legs, worsening Denies: PMH: UTI [place] Education Verbal Education Provided for: Painful Urination Home Care Education Log Drink plenty of fluids. Drink cranberry juice. This causes the urine to be acidic, which helps protect the bladder from infection. Take prescription medicine as directed. Ask your provider if you can take acetaminophen for pain. Ask your provider if you can take nonprescription nonsteroidal anti-inflammatory medications for pain: Ibuprofen Naproxen Notify your provider if you have painful urination and any of the following: Worsening abdominal pain Worsening back pain Worsening flank pain Inability to urinate Repeated vomiting Fever over 102 degrees F (38.8 C) Worsening painful urination IMPORTANT: This note was created by [facility] Clinical Contact Center staff. Please do not alert the staff member by adding them as a signer for future communications. Alerts are not monitored by this user. /alma/ Shasha Schulz ANDROID UI DEVELOPER MSN Ed VISN 23 Daytime Nurse Triage Signed: 01/02/2024 07:42 SHASHA SCHULZ [facility]
--- OUTSIDE RECORDS SUMMARY | 2024-01-02 08:33 | XMS_ITS | Encounter Summary ---
Author Name [facility] [place] [facility] [place] Address [address] [place] [address] Care Team Providers Care Shell Freezing Machine Operator Name Role Phone RAI THOMPSON Primary Care [...] SUPPL EMENT Mar 03, 2015 PLAN N [id number] [phone] RADHA SIMON PATIENT MEDICARE (WNR) MEDICARE (M) PART B Mar 03, 2015 PART B [id number] [phone] RADHA SIMON PATIENT MEDICARE (WNR) MEDICARE (M) PART A Jan 01, 2011 PART A [id number] RADHA SIMON PATIENT Selected Encounter This section includes the information on record at [place] for the Encounter. Date/Time Encounter Type Encounter Description Reason Provider Source Dec 29, 2023 12:30 PM OFFICE O/P NEW MOD 45 MIN UROLOGY CLINIC ICD-10-CM R33.9 Retention of urine, unspecified [facility] Encounter Template Text not used by [facility] Assessments - Encounter Diagnoses This section includes the primary and secondary diagnoses documented for the Encounter. Date/Time Primary/Secondary Diagnosis Diagnosis Name Provider Source Dec 29, 2023 02:59 PM PRIMARY Retention of urine, unspecified [facility] Dec 29, 2023 02:59 PM SECONDARY Malignant neoplasm of prostate [facility] Plan of Treatment: Future Appointments (+ 6 months) and Future Tests (+/- 45 days) The Plan of Treatment section includes future care activities for the patient from all [place] treatmentfacilities. This section includes future appointments and future orders which are active, pending or scheduled. Future Appointments This section includes appointments that were scheduled to occur 6 months from the date of the Encounter, up to a maximum of 20 appointments. The data comes from all [place] treatment facilities. Appointment Date/Time Appointment Type Appointme nt Facility Name Mar 04, 2024 10:00 AM AMBULATORY - SURGERY [facility] Encounter Notes: All associated encounter notes This section contains the clinical notes associated to the Encounter. Date/Time Encounter Note(s) Provider Source Dec 29, 2023 01:18 PM UROLOGY NURSING OU TPATIENT NOTE: LOCAL TITLE: UROLOGY CLINIC NURSING NOTE STANDARD TITLE: UROLOGY NURSING OUTPATIENT NOTE DATE OF NOTE: DEC 29, 2023@13:18 ENTRY DATE: DEC 29, 2023@13:18:49 AUTHOR: LEXIS RICH EXP COSIGNER: URGENCY: STATUS: COMPLETED Nursing Procedures: Trial of Voiding Antibiotic given prior to patient per provider order Ciprofloxacin 500mg PO 375 cc of Sterile Water instilled into zavala via gravity at which time patient stated urge to void. 350 Fr Silicone Straight catheter removed. Patient voided 350 cc. Residual urine 95 cc. Comments: f/u per provider orders /alma/ LEXIS RICH LPN LICENSED PRACTICAL NURSE Signed: 12/29/2023 13:21 LEXIS RICH [facility] Dec 29, 2023 11:39 AM UROLOGY CONSULT: LOCAL TITLE: UROLOGY CONSULT STANDARD TITLE: UROLOGY CONSULT DATE OF NOTE: DEC 29, 2023@11:39 ENTRY DATE: DEC 29, 2023@11:40:07 AUTHOR: [facility] EXP COSIGNER: URGENCY: STATUS: COMPLETED Chief Complaint:urinary retention, prostate cancer. RADHA Otero is a 78 year old with PMH ofCOPD, LBP, BPH and prostate cancer who presents for the above issues. The went into the ER on 12/20/23 with abd pain and was found to be in urinary retention. Zavala was placed for 600ml. His abd pain resolved with zavala placement. UA showed few bacteria. UC neg. His catheter remains intact today. Pt reports having 4 catheters in his lifetime. He underwent a TURP in 11/18/16 in which low grade/volume prostate cancer was found (2/220 chips, fernie 6; 3+ 3.) PSA has remained stable and pt denies any bx of his prostate since surgery. He has been following with [facility] and note from 05/2020 shows that UDS was performed () that showed evidence of obstructed voiding again. He opted not to proceed with repeat TURP at that time. The isn't the best historian and thought he had two TURPs, but after reviewing his chart, it was one TURP and a UDS. He has been on tamsulosin 0.4mg for years. He takes this in the AM and denies any issues with side effects. He thought he was voiding fine prior to his acute retention. Denies any hx of gross hematuria, dysuria, hx of urologic infections or other urologic surgeries besides the TURP. Most recent: GFR- 88 PSA-2.76 A1C- 5.5% UA-trace leuko, few bacteria, otherwise neg. UC neg. PAST MEDICAL HISTORY ========= Chronic obstructive lung disease (SCT 13Tobacco use (SCT 345938006) Low back pain (SCT 290841282) BPH - Benign prostatic hypertrophy (SCT 602791562) Polyp Colon (SCT 42879412) Exposure to potentially hazardous substance (SCT 343676671148143) Primary malignant neoplasm of prostate ( PAST SURGICAL HISTORY ========= SURGERIES - TURP 11/2016 Medications: Active Outpatient Medications (including Supplies): Active Outpatient Medications Status 1) ALBUTEROL 90MCG (CFC-F) 200D ORAL INHL INHALE 2 PUFFS ACTIVE BY INHALATION FOUR TIMES A DAY NEEDED FOR IMMEDIATE RELIEF OF SHORTNESS OF BREATH *SHAKE WELL* 2) ALBUTEROL SO4 0.083% INHL 3ML INHALE 3 ML (1 VIAL) IN ACTIVE NEBULIZER BY INHALATION EVERY 6 HOURS NEEDED FOR SHORTNESS OF BREATH 3) AZITHROMYCIN 250MG TAB TAKE ONE TABLET BY MOUTH THREE ACTIVE TIMES A WEEK FOR COPD WITH CHRONIC COUGH 4) FLUTICAS 250/SALMETEROL 50 INHL DISK 60 INHALE 1 PUFF ACTIVE BY INHALATION TWICE A DAY *RINSE MOUTH AFTER EACH USE* 5) TAMSULOSIN HCL 0.4MG CAP TAKE ONE CAPSULE BY MOUTH ACTIVE DAILY 6) TIOTROPIUM 18MCG INHL CAP 30 INHALE ONE CAPSULE IN ACTIVE INHALER BY INHALATION EVERY DAY TO PREVENT TROUBLE BREATHING Active Non-VA Medications Status 1) Non-VA ASPIRIN 81MG EC TAB 81MG MOUTH EVERY DAY ACTIVE 2) Non-VA CHOLECALCIF 25MCG (D3-1,000UNIT) TAB 25MCG ACTIVE MOUTH DAILY 3) Non-VA MAGNESIUM OXIDE CAP,ORAL 250MG MOUTH DAILY ACTIVE 4) Non-VA MULTIVITAMIN CAP/TAB 1 TABLET MOUTH EVERY DAY ACTIVE 5) Non-VA SENNOSIDES 8.6MG TAB 8.6MG MOUTH TWICE A DAY ACTIVE 11 Total Medications Allergies: Patient has answered NKA FAMILY HISTORY ========= Hx of prostate cancer: dad (lived 15 years with it) and brother both . Hx of renal cancer: denies Hx of bladder cancer: denies SOCIAL HISTORY ========= Lives at home with: Tobacco use: 40 years <1ppd Branch of service: [employer] Agent orange exposure: yes Chemical/dye exposure: denies REVIEW OF SYSTEMS General: denies weight loss/gain, fevers, chills HEENT: denies complaints of headache, change in vision Cardio: denies chest pain/palpitations Gastro: denies dysphagia, nausea, vomiting : See HPI Musc: denies any new back pain, arthralgias, muscle ache Neuro: denies weakness, numbness, gait difficulties Psych: denies new onset depression, mood changes, anxiety Skin: denies rashes Heme: denies easy bruising/bleeding PHYSICAL EXAM Gen: no acute distress, axox3 Neck: no JVD, trachea midline, no abnormal adenopathy Resp: No increased work of breathing Abd: Soft, nontender, nondistended, no visible scars, no flank pain bilat Skin: Warm and dry, no visible rashes/bruises Ext: No cyanosis, or edema. Neuro: Cranial nerves II-XII grossly intact : Penis uncircumcised, zavala intact with dark yellow urine. Foreskin easily retracts. Mild erythema at meatus. No drainage is noted. No palpable penile plaques Testes descended bilat, no masses noted. Epididymis intact bilat with no pain to palpation. No inflammation noted. No varicoceles bilaterally RAFAELA: deferred PVR today: voiding trial. LABS: PSA 2.76 SERUM (10/09/23 11:20) 2.77 SERUM (10/22/22 11:07) 2.61 SERUM (10/11/21 11:18) Collection DT Specimen Test Name Result Units Ref Range 11/13/2023 10:11 PLASMA SODIUM 133 L mmol/L 136 - 145 11/13/2023 10:11 PLASMA POTASSIUM 4.1 mmol/L 3.5 - 5.1 11/13/2023 10:11 PLASMA CHLORIDE 101 mmol/L 98 - 107 11/13/2023 10:11 PLASMA CO2 25 mmol/L 22 - 29 11/13/2023 10:11 PLASMA ANION GAP 7 mmol/L 5 - 15 11/13/2023 10:11 PLASMA UREA NITROGEN 11 mg/dL 8 - 26 11/13/2023 10:11 PLASMA CREATININE 0.9 mg/dL 0.7 - 1.2 10/09/2023 11:20 PLASMA ALBUMIN 4.2 g/dL 3.5 - 5.2 11/13/2023 10:11 PLASMA CALCIUM 9.3 mg/dL 8.4 - 10.2 11/13/2023 10:11 PLASMA GLUCOSE 93 mg/dL 70 - 100 10/09/2023 11:20 BLOOD WBC 8.07 K/cmm 4.0 - 11.0 10/09/2023 11:20 BLOOD RBC 4.53 L M/cmm 4.6 - 6.2 10/09/2023 11:20 BLOOD HGB 15.2 g/dL 13.5 - 17.9 10/09/2023 11:20 BLOOD HCT 43.0 % 41 - 54 10/09/2023 11:20 BLOOD MCV 94.9 fL 80 - 100 10/09/2023 11:20 BLOOD MCH 33.6 H pg 27 - 33 10/09/2023 11:20 BLOOD MCHC 35.3 g/dL 32.0 - 37.5 10/09/2023 11:20 BLOOD PLT 190 K/cmm 150 - 400 10/09/2023 11:20 BLOOD MPV 10.6 H fL 7.4 - 10.4 10/09/2023 11:20 BLOOD RDW 11.7 % 11.5 - 14.5 11/13/2023 10:11 PLASMA .CREAT EGFR(CKD-E 88 Ref: >=[address] === Ct abd/pelvis- 12/20/23- left extrarenal pelvis, TURP defect, no other urologic abnormalities. PLAN RADHA Otero is a 78 year old who presents for urinary retention, hx of TURP in 2017, low grade, low volume prostate cancer (fernie 6; 3+3.) 1. Voiding trial performed today. Pt passed. Please see nursing notes. Offered for to learn CIC, just in case, but he did not want to learn. He would rather have a zavala replaced, if needed. Will increase tamsulosin from 0.4mg po q am to 0.4mg po BID and plan to follow up in 2 months with PVR. Discussed a possible repeat TURP if retention returns. May need repeat UDS and prostate sizing. 2. Prostate cancer under watchful waiting per . Checking PSA yearly, which has been quite stable for the past few years. The pt is in agreement with this plan. All questions were answered. Pt was seen a total time of 45 minutes which was spent in chart review, obtaining hx, exam, pt education, ordering appropriate meds/tests, documenting in electronic medical records, interpretation of results and communicating them to the pt and coordination of care. /alma/ PAUL CADENA UROLOGY PHYSICIAN CHLOROBUTADIENE SCRUBBER OPERATOR Signed: 12/29/2023 14:59 [facility]
[2024-01-02 09:30] LABS: Appearance Urine Clear (Clear); Bilirubin Urine Negative (Negative); Blood Urine Negative (Negative); Color Urine Yellow (Yellow); Glucose Urine Negative (Negative); Ketones Urine Negative (Negative); Leukocyte Esterase Urine Trace (Negative); Nitrite Urine Positive (Negative); Protein Urine Negative (Negative); Urobilinogen Urine 0.2 (0.2-1.0); pH Urine 7.5 (5.0-8.5)
[2024-01-02 09:47] LABS: Bacteria Urine Many; RBC Urine 0-2 (0-2); Squamous Epithelial Cell Urine Few (None-Few)
--- NOTE | 2024-01-05 16:57 | ED.GENADULT ---
HPI - General Adult General Chief complaint: Urogenital Problems, Male Stated complaint: urinary problem Time Seen by Provider: 01/02/24 08:13 History of Present Illness HPI narrative: I saw this patient in the ER last Friday with acute urinary retention. He had just had a Coles catheter placed about 2 weeks prior to his visit and then removed about 2 days prior to his visit. He re-presented with acute urinary retention. We were able to replace the catheter during his ER visit with good resolution of his symptoms. Urinalysis in the ER on the day was it was fairly unremarkable. However urine culture is growing Staph epidermidis today. I contacted the patient by phone. He is doing well. Previously he had been put off until March for a urology follow-up. Fortunately after making some phone calls he has been able to get an appointment to see a urologist next Friday (in [place]). Based on his urine culture results, I do think it is reasonable to put him on some antibiotics. However he is not having any definite symptoms of fever, abdominal pain, nausea. It is possible that this staph epidermis is this just a contaminant from Coles catheter placement. Also possible that it was a true infection given his recent urologic procedures. Will put him on amoxicillin 875 mg b.i.d. for 7 days. Contacted the patient by phone and he will fill his prescription and take it. Related Data Home Medications ?Medication ?Instructions ?Recorded ?Confirmed albuterol sulfate 90 mcg/actuation 2 puff inhalation Q6H PRN 01/03/22 01/03/22 aerosol inhaler ibuprofen 200 mg tablet (Advil) 200 mg PO Q6H PRN 01/03/22 01/03/22 tiotropium bromide 2.5 2 puff inhalation QDAY 01/03/22 01/03/22 mcg/actuation mist for inhalation (Spiriva Respimat) albuterol sulfate 2.5 mg/3 mL 2.5 mg inhalation Q6H 01/08/22 (0.083 %) solution for nebulization aspirin 81 mg tablet,delayed 81 mg PO QDAY 01/08/22 release fluticasone propion-salmeterol inhalation 01/08/22 [Wixela Inhub] sennosides 8.6 mg capsule (senna) 8.6 mg PO QDAY PRN 01/08/22 tamsulosin 0.4 mg capsule 0.4 mg PO QDAY 01/08/22 Previous Rx's ?Medication ?Instructions ?Recorded prednisone 20 mg tablet 20 mg PO BID Back Pain #10 tabs 01/03/22 amoxicillin 875 mg tablet 875 mg PO BID #14 tabs 01/05/24 Allergies Allergy/AdvReac Type Severity Reaction Status Date / Time No Known Drug Allergies Allergy Verified 01/03/22 14:32 PFSH [facility] Medical History Back pain ?M54.9 - Dorsalgia, unspecified (ICD-10) Course Vital Signs Vital signs: Initial Vital Signs Temperature 98.0 F 01/02/24 08:18 Temperature Source Temporal Artery Scan 01/02/24 08:18 Pulse Rate 92 01/02/24 08:18 Respiratory Rate 18 01/02/24 08:18 Blood Pressure 122/92 H 01/02/24 08:18 Blood Pressure Mean 102 01/02/24 08:18 Blood Pressure Position Sitting 01/02/24 08:18 Pulse Oximetry 94 01/02/24 08:18 Oxygen Delivery Method Room Air 01/02/24 08:18 Vital Signs Temperature 98.0 F 01/02/24 08:18 Pulse Rate 92 01/02/24 08:18 Respiratory Rate 18 01/02/24 08:18 Blood Pressure 122/92 H 01/02/24 08:18 Pulse Oximetry 94 01/02/24 08:18 Oxygen Delivery Method Room Air 01/02/24 08:18 Temperature 98.0 F 01/02/24 08:18 Pulse Rate 92 01/02/24 08:18 Respiratory Rate 18 01/02/24 08:18 Blood Pressure 122/92 H 01/02/24 08:18 Pulse Oximetry 94 01/02/24 08:18 Oxygen Delivery Method Room Air 01/02/24 08:18 Medical Decision Making Lab Data Labs: Lab Results 01/02/24 Range/Units Unknown Urine Color Yellow (Yellow) Urine Appearance Clear (Clear) Urine pH 7.5 (5.0-8.5) Ur Specific [place] 1.020 (1.000-1.030) Urine Protein Negative (Negative) Urine Glucose (UA) Negative (Negative) Urine Ketones Negative (Negative) Urine Blood Negative (Negative) Urine Nitrite Positive A (Negative) Urine Bilirubin Negative (Negative) Urine Urobilinogen 0.2 (0.2-1.0) Ur Leukocyte Esterase Trace A (Negative) Urine RBC 0-2 (0-2) Urine WBC 2-5 (0-5) Ur Squamous Epith Cells Few (None-Few) Urine Bacteria Many A (None) Discharge Plan Discharge Clinical Impression: Acute urinary retention, Acute UTI Patient Disposition: Home, Self-Care Condition: Stable Instructions: Urinary Retention in Men (ED), Coles Catheter Placement and Care (ED) Additional Instructions: As we discussed, please call your doctors at the [facility] to arrange a follow-up appointment for urinary retention. Also, ask your doctors at the [facility] to move up your urology appointment for as soon as possible (within the next 1-2 weeks). You can also call your urologist through [facility] and ask them to move up your appointment. You might be able to get a sooner appointment if you ask for an appointment at another office other than the [facility]. If you have any problems especially if your bladder stops draining or if urine is bloody, if her having bad abdominal pain, fever, nausea or vomiting, or any other problems please come back to the ER right away. Prescriptions: New amoxicillin 875 mg tablet 875 mg PO BID Qty: 14 0RF No Action Spiriva Respimat 2.5 mcg/actuation mist 2 puff inhalation QDAY albuterol sulfate 90 mcg/actuation HFA aerosol inhaler 2 puff inhalation Q6H PRN ibuprofen [Advil] 200 mg tablet 200 mg PO Q6H PRN prednisone 20 mg tablet 20 mg PO BID Qty: 10 0RF tamsulosin 0.4 mg capsule 0.4 mg PO QDAY senna 8.6 mg capsule 8.6 mg PO QDAY PRN albuterol sulfate 2.5 mg /3 mL (0.083 %) solution for nebulization 2.5 mg inhalation Q6H aspirin 81 mg tablet,delayed release (DR/EC) 81 mg PO QDAY fluticasone propion-salmeterol [Wixela Inhub] inhalation Follow Up/Referrals: Cain Garcia MD [Primary Care Provider] - Stand Alone Forms: [employer] Info Instructions
== END 2024-01-02 10:17 | disposition home or self-care (01) ==
PROVIDERS: Emergency Provider Emergency Medicine; PCP Family Medicine
DX: R33.9 Retention of urine, unspecified (principal)
CPT/HCPCS: 51702; 81001; 87086; 87186; 99281; 99282; 99283

== ENCOUNTER 2024-01-06 15:14 | Emergency (ER) | payer OTHER, SELFPAY ==
[2024-01-06 15:17] VITALS: BP 145/68; PULSE 82; RESP 18; TEMP 37.1; O2SAT 96; BMI 31.9
--- NOTE | 2024-01-06 15:48 | ED.GENADULT ---
HPI - General Adult General Date Seen: 01/06/24 Chief complaint: Urogenital Problems, Male Stated complaint: Catheter issue Time Seen by Provider: 01/06/24 15:37 Source: patient, RN notes reviewed and old records reviewed Mode of arrival: ambulatory Limitations: no limitations History of Present Illness HPI narrative: Patient is a 79-year-old male with indwelling Coles catheter who presents for penile pain. He was here at the end of December with urinary retention, UA was obtained, grew out Staph epi, initially started on amoxicillin and then he says he got a call meds changed to a different antibiotic which he has been taking since then. He is not sure what that antibiotic is. He says this morning when he cleaned the penile area it felt fine but this afternoon with any manipulation of the catheter he has pain in his penis. He has not had any drainage, denies abdominal pain, flank pain, vomiting, fevers. Catheter has been draining fine, he has noted a couple of small clots. He is not anticoagulated. He has not noted any redness, swelling or other changes in the groin. Related Data Home Medications ?Medication ?Instructions ?Recorded ?Confirmed albuterol sulfate 90 mcg/actuation 2 puff inhalation Q6H PRN 01/03/22 01/03/22 aerosol inhaler ibuprofen 200 mg tablet (Advil) 200 mg PO Q6H PRN 01/03/22 01/03/22 tiotropium bromide 2.5 2 puff inhalation QDAY 01/03/22 01/03/22 mcg/actuation mist for inhalation (Spiriva Respimat) albuterol sulfate 2.5 mg/3 mL 2.5 mg inhalation Q6H 01/08/22 (0.083 %) solution for nebulization aspirin 81 mg tablet,delayed 81 mg PO QDAY 01/08/22 release fluticasone propion-salmeterol inhalation 01/08/22 [Estellaela Inhub] sennosides 8.6 mg capsule (senna) 8.6 mg PO QDAY PRN 01/08/22 tamsulosin 0.4 mg capsule 0.4 mg PO QDAY 01/08/22 Previous Rx's ?Medication ?Instructions ?Recorded prednisone 20 mg tablet 20 mg PO BID Back Pain #10 tabs 01/03/22 amoxicillin 875 mg tablet 875 mg PO BID #14 tabs 01/05/24 Allergies Allergy/AdvReac Type Severity Reaction Status Date / Time No Known Drug Allergies Allergy Verified 01/03/22 14:32 Review of Systems Status of ROS: Reports: 6 or more systems reviewed and unremarkable except as noted in History and below [facility] Medical History Back pain ?M54.9 - Dorsalgia, unspecified (ICD-10) Social History Smoking Status: Never smoker Do you use any of these nicotine containing products: None How often do you have a drink containing alcohol: never How often do you have six or more drinks on one occasion: Never AUDIT-C Alcohol total score: 0 Non-prescribed substance use: denies use service: No Exam Narrative: Exam Narrative: Vital signs reviewed In general, alert, well-appearing elderly male. Abdomen: Soft nontender nondistended. No CVA tenderness. : He is uncircumcised, there is no erythema or swelling of the foreskin or the glans. No drainage from the urethra. Catheter is well positioned. Drainage appears normal, urine looks clear. Skin: Warm dry well perfused. Const: Vital Signs, click to edit/add: Vital Signs - 24 hr 01/06/24 15:17 01/06/24 17:48 Temperature 98.8 F Pulse Rate [Right Pulse Oximeter] 82 92 Respiratory Rate 18 18 Blood Pressure [Ri ght Upper Arm] 145/68 H 141/92 H Pulse Oximetry 96 92 Oxygen Delivery Me thod Room Air Room Air Documenting provider has reviewed patient's vital signs: yes Course Course ED Course: Records reviewed, I am not able to figure out what antibiotic he might have been changed to, the only note I see is regarding the amoxicillin and he is unsure who followed him or what they recommended. He is however taking whatever antibiotic was prescribed. He does not have any abdominal or flank pain. No signs of significant infection. Will go ahead and run a UA and change of catheter to see if perhaps that improves discomfort. I do not see evidence of significant inflammation or infection in the groin. Feels improved after catheter change, UA pretty unremarkable, 5-10 white cells which I think given indwelling Coles not overly concerned about. Continue antibiotics, return for worsening symptoms such as swelling, redness, draining , fever cetera. Vital Signs Vital signs: Initial Vital Signs Temperature 98.8 F 01/06/24 15:17 Temperature Source Temporal Artery Scan 01/06/24 15:17 Pulse Rate 82 01/06/24 15:17 Pulse Rhythm Regular 01/06/24 15:17 Respiratory Rate 18 01/06/24 15:17 Blood Pressure 145/68 H 01/06/24 15:17 Blood Pressure Mean 93 01/06/24 15:17 Blood Pressure Position Sitting 01/06/24 15:17 Pulse Oximetry 96 01/06/24 15:17 Oxygen Delivery Method Room Air 01/06/24 15:17 Vital Signs Temperature 98.8 F 01/06/24 15:17 Pulse Rate 82 01/06/24 15:17 Respiratory Rate 18 01/06/24 15:17 Blood Pressure 145/68 H 01/06/24 15:17 Pulse Oximetry 96 01/06/24 15:17 Oxygen Delivery Method Room Air 01/06/24 15:17 Temperature 98.8 F 01/06/24 15:17 Pulse Rate 92 01/06/24 17:48 Respiratory Rate 18 01/06/24 17:48 Blood Pressure 141/92 H 01/06/24 17:48 Pulse Oximetry 92 01/06/24 17:48 Oxygen Delivery Method Room Air 01/06/24 17:48 Medications Administered Medications: Discontinued Medications Generic Name Dose Route Start Last Admin Trade Name Freq PRN Reason Stop Dose Admin Lidocaine HCl 6 ml 01/06/24 15:47 01/06/24 16:20 Lidocaine Hcl 2 % Jelly (Top) Sterile UR 01/06/24 15:48 6 ml ONCE ONE Administration Medical Decision Making Lab Data Labs: Lab Results 01/06/24 Range/Units 16:20 Urine Color Yellow (Yellow) Urine Appearance Slightly Cloudy A (Clear) Urine pH 8.0 (5.0-8.5) Ur Specific [place] 1.010 (1.000-1.030) Urine Protein Negative (Negative) Urine Glucose (UA) Negative (Negative) Urine Ketones Negative (Negative) Urine Blood 2+ A (Negative) Urine Nitrite Negative (Negative) Urine Bilirubin Negative (Negative) Urine Urobilinogen 0.2 (0.2-1.0) Ur Leukocyte Esterase 1+ A (Negative) Urine RBC 0-2 (0-2) Urine WBC 5-10 A (0-5) Urine WBC Clumps None (None) Ur Squamous Epith Cells Few (None-Few) Urine Bacteria Few A (None) Discharge Plan Discharge Clinical Impression: Pain, penile Patient Disposition: Home, Self-Care Condition: Stable Additional Instructions: We will send today's urine for culture. For now, continue your current antibiotic. You can use Tylenol if needed. If you have worsening penile pain, develops swelling, redness, fever, drainage or other worsening, return to the ER at any time. Otherwise, urology follow-up recommended. Prescriptions: No Action Spiriva Respimat 2.5 mcg/actuation mist 2 puff inhalation QDAY albuterol sulfate 90 mcg/actuation HFA aerosol inhaler 2 puff inhalation Q6H PRN ibuprofen [Advil] 200 mg tablet 200 mg PO Q6H PRN prednisone 20 mg tablet 20 mg PO BID Qty: 10 0RF amoxicillin 875 mg tablet 875 mg PO BID Qty: 14 0RF tamsulosin 0.4 mg capsule 0.4 mg PO QDAY senna 8.6 mg capsule 8.6 mg PO QDAY PRN albuterol sulfate 2.5 mg /3 mL (0.083 %) solution for nebulization 2.5 mg inhalation Q6H aspirin 81 mg tablet,delayed release (DR/EC) 81 mg PO QDAY fluticasone propion-salmeterol [Wixela Inhub] inhalation Follow Up/Referrals: Cain Garcia MD [Primary Care Provider] - Stand Alone Forms: [employer] Info Instructions
[2024-01-06] MEDS: lidocaine HCL 2 % JELLY (TOP) STERILE 6 ML UR (16:20)
[2024-01-06 16:28] LABS: Bilirubin Urine Negative (Negative); Blood Urine 2+ (Negative); Color Urine Yellow (Yellow); Glucose Urine Negative (Negative); Ketones Urine Negative (Negative); Leukocyte Esterase Urine 1+ (Negative); Nitrite Urine Negative (Negative); Protein Urine Negative (Negative); Urobilinogen Urine 0.2 (0.2-1.0)
--- NOTE | 2024-01-06 16:39 | ED.NURSE ---
Catheter inserted in pt, pt tolerated well. Catheter drained approximatel 100cc of urine.
--- OUTSIDE RECORDS SUMMARY | 2024-01-06 16:44 | XMS_ITS | Continuity of Care Document ---
Author Name [facility] Organization [facility] Care Team Providers Care Platform Power Technician Name Role Phone [facility] Unavailable Unavailable Problems Combined list of problems from Department of Defense and Veterans Affairs facilities. It does not include entries that were removed or entered in error. Problem Status Onset Date Problem Type Date of Resolution Comments Source Exposure to potentially hazardous substance ([facility] [id number] ) Active 05/09/19 24 Condition May 09, 2023 Entered By: ERIKA HOOPER Comment: [facility] K[facility]STIAN Documentation Initiative [facility] BPH - Benign prostatic hypertrophy Active Condition Oct 09, 2017 Entered By: MARK HOLMAN Comment: TURP (11/[address] 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) Active Condition [place] ([facility]) Primary malignant neoplasm of prostate Active Condition [place] ([facility]) Tobacco use Active Condition [place] ([facility]) Diagnosis: ICD-10-CM R33.9 Retention of urine, unspecified Active Diagnosis [facility] Diagnosis: ICD-10-CM Z00.00 Encntr for general adult medical exam w/o abnormal findings Active Diagnosis [place] ([facility]) Diagnosis: ICD-10-CM C44.41 Basal cell carcinoma of skin of scalp and neck Active Diagnosis [facility] Diagnosis: ICD-10-CM D48.5 Neoplasm of uncertain behavior of skin Active Diagnosis [facility] Medications Combined list of outpatient medications from [...] WELL* RESPIR ATORY (INHAL ATION) ACTIVE 10/09/2024 [id number] 4 ENA THOMPSON MARCK Kevin 2023 2 [place] ([facility]) ALBUTEROL 90MCG/ACTUA T (CFC-F) INHL,ORAL,8 .5GM DOSE COUNTER INHALE 2 PUFFS BY INHALATI ON FOUR TIMES A DAY NEEDED FOR IMMEDIAT E RELIEF OF SHORTNES S OF BREATH *SHAKE WELL* RESPIR ATORY (INHAL ATION) DISCONT INUED 10/23/2023 [id number] 4 ENA THOMPSON MARCK Kevin 2022 2 [place] [facility]) ALBUTEROL SO4 0.083% INHL,3ML INHALE 3 ML (1 VIAL) IN NEBULIZE R BY INHALATI ON EVERY 6 HOURS NEEDED FOR SHORTNES S OF BREATH RESPIR ATORY (INHAL ATION) ACTIVE 07/07/2024 [id number] 4 [facility] 120 [place] [facility]) ALBUTEROL SO4 0.083% INHL,3ML INHALE 3 ML (1 VIAL) IN NEBULIZE R BY INHALATI ON EVERY 6 HOURS NEEDED FOR SHORTNES S OF BREATH RESPIR ATORY (INHAL ATION) DISCONT INUED 10/23/2023 [id number] 4 JAYENA MARCK Kevin 2022 120 [place] [facility]) ASPIRIN 81MG TAB,EC TAKE ONE TABLET BY MOUTH EVERY DAY ORAL ACTIVE Shannan ALVARADO 2015 [place] [facility]) AZITHROMYCI N 250MG TAB TAKE ONE TABLET BY MOUTH THREE TIMES A WEEK FOR COPD WITH CHRONIC COUGH ORAL ACTIVE 12/01/2024 [id number] 4 INES LUNA NJAMIN E 2023 45 [facility] AZITHROMYCI N 250MG TAB TAKE ONE TABLET BY MOUTH THREE TIMES A WEEK FOR COPD WITH CHRONIC COUGH ORAL DISCONT INUED 10/02/2023 [id number] 4 INES LUNA NJAMIN E 2022 45 [place] [facility] CHOLECALCIF NENA 25MCG (1,000UNIT) TAB TAKE ONE TABLET BY MOUTH DAILY ORAL ACTIVE JAYENA 2020 [place] [facility]) FLUTICASONE 250MCG/SALM ETEROL 50MCG INHL,ORAL,D ISKUS,60 INHALE 1 PUFF BY INHALATI ON TWICE A DAY *RINSE MOUTH AFTER EACH USE* RESPIR ATORY (INHAL ATION) ACTIVE 08/28/2024 [id number] 4 JAYENA 2023 3 [place] [facility]) FLUTICASONE 250MCG/SALM ETEROL 50MCG INHL,ORAL,D ISKUS,60 INHALE 1 PUFF BY INHALATI ON TWICE A DAY *RINSE MOUTH AFTER EACH USE* RESPIR ATORY (INHAL ATION) DISCONT INUED 10/23/2023 [id number] 4 JAYENA 2022 3 [place] [facility]) [...] DAY FOR BLADDER SYMPTOMS ORAL ACTIVE 12/29/2024 [id number] 4 BE STONE 2023 180 [facility] TAMSULOSIN HCL 0.4MG CAP TAKE ONE CAPSULE BY MOUTH DAILY ORAL DISCONT INUED (EDIT) 05/06/2024 [id number] 4 ENA THOMPSON K 2023 90 [place] [facility]) TAMSULOSIN HCL 0.4MG CAP TAKE ONE CAPSULE BY MOUTH DAILY ORAL DISCONT INUED 05/03/2023 [id number] 3 ENA THOMPSON 2022 90 [place] [facility]) TIOTROPIUM 18MCG CAP,INHL,30 INHALE ONE CAPSULE IN INHALER BY INHALATI ON EVERY DAY TO PREVENT TROUBLE BREATHIN G RESPIR ATORY (INHAL ATION) ACTIVE 10/02/2024 [id number] 4 INES LUNA NJAMIN E 2023 1 [facility] TIOTROPIUM 18MCG CAP,INHL,30 INHALE ONE CAPSULE IN INHALER BY INHALATI ON EVERY DAY TO PREVENT TROUBLE BREATHIN G RESPIR ATORY (INHAL ATION) DISCONT INUED 10/02/2023 [id number] 4 JULIANNE NUR 2022 1 [facility] Immunizations Combined list of available immunizations from the Department of Defense and Veterans Affairs facilities. Immunization Series Date Given Administered By Site Reaction Lot Number CVX Code Drug Single Ending Machine Operator Status Comments Source PNEUMOCOCCAL CONJUGATE PCV20, POLYSACCHARID E BAB200 CONJUGATE, ADJUVANT, PF 2023 216 complet ed [facility] COVID-19 (PFIZER), MRNA, LNP-S, BIVALENT, PF, 30 MCG/0.3 ML DOSE 2021 300 complet ed [facility] INFLUENZA, INJECTABLE, MDCK, PRESERVATIVE FREE, QUADRIVALENT 2021 171 complet ed [facility] INFLUENZA, INJECTABLE, QUADRIVALENT 2021 158 complet ed [facility] COVID-19 (MODERNA), MRNA, LNP-S, PF, 100 MCG/0.5ML DOSE OR 50 MCG/0.25ML DOSE 2 2021 207 complet ed [facility] ZOSTER RECOMBINANT 2 2020 187 complet ed [place] [facility] INFLUENZA, INJECTABLE, MDCK, QUADRIVALENT, PRESERVATIVE 2020 186 complet ed [facility] INFLUENZA, UNSPECIFIED FORMULATION 2020 88 complet ed [facility] TDAP 2020 115 complet ed [place] [facility] ZOSTER RECOMBINANT 1 2020 187 complet ed [place] [facility]) COVID-19 (JEFF), VECTOR-NR, RS-AD26, PF, 0.5 ML 1 2020 212 complet ed [facility] INFLUENZA, INJECTABLE, QUADRIVALENT, PRESERVATIVE FREE 2019 150 complet ed [facility] INFLUENZA VACCINE, QUADRIVALENT, ADJUVANTED 2019 205 complet ed [facility] INFLUENZA, UNSPECIFIED FORMULATION 2019 88 complet ed [facility] PNEUMOCOCCAL CONJUGATE PCV 13 2015 133 complet ed [employer], [id number], 10/17 [place] [facility]) ZOSTER LIVE 2015 121 complet ed [employer] [id number], 7 [place] [facility]) PNEUMOCOCCAL CONJUGATE PCV 13 2015 133 complet ed [facility] ZOSTER LIVE 2015 121 complet ed [facility] PNEUMOCOCCAL POLYSACCHARID E PPV23 2010 33 complet ed [facility] TDAP 2009 115 complet ed [facility] Results Combined list of recent chemistry, [...] Oct 16, 2023 04:45 PM Reporting Lab: [facility] [id number] Performing Lab: [facility] [address] [place] ([facility]) ALT/SGPT ALANINE AMINOTRANS FERASE [ENZYMATIC ACTIVITY/V OLUME] IN SERUM OR PLASMA 24 U/L <44 - 44 11/12 Specimen Type: PLASMA No comment entered. Ordering Provider: CLARI THOMPSON Report Released Date/Time: Oct 16, 2023 04:45 PM Reporting Lab: [facility] [address] Performing Lab: [facility] [address] [place] ([facility]) BILIRUBI N TOTAL W/REFLEX TO DIRECT BILIRUBIN. TOTAL [MASS/VOLU ME] IN SERUM OR PLASMA 1.0 mg/dL 0.2 - 1.2 11/12 Specimen Type: PLASMA No comment entered. Ordering Provider: CLARI THOMPSON Report Released Date/Time: Oct 16, 2023 04:45 PM Reporting Lab: [place] [address] Performing Lab: [facility] [address] [place] ([facility]) ALKALINE PHOSPHAT ASE ALKALINE PHOSPHATAS E [ENZYMATIC ACTIVITY/V OLUME] IN SERUM OR PLASMA 57 U/L 40 - 150 11/12 Specimen Type: PLASMA No comment entered. Ordering Provider: CLARI THOMPSON Report Released Date/Time: Oct 16, 2023 04:45 PM Reporting Lab: [facility] [address] Performing Lab: [place] [phone] [place] ([facility]) GAMMA GTP GAMMA GLUTAMYL TRANSFERAS E [ENZYMATIC ACTIVITY/V OLUME] IN SERUM OR PLASMA 47 U/L <54 - 54 11/12 Specimen Type: PLASMA No comment entered. Ordering Provider: CLARI THOMPSON Report Released Date/Time: Oct 16, 2023 04:45 PM Reporting Lab: [facility] [address] Performing Lab: [facility] [address] [place] ([facility]) ANTI-HEP C(EIA) HEPATITIS C VIRUS AB [PRESENCE] IN SERUM NEGATIVE 11/12 Specimen Type: SERUM No comment entered. Ordering Provider: CLARI THOMPSON Report Released Date/Time: Oct 16, 2023 04:45 PM Reporting Lab: [facility] [address] Performing Lab: [facility] [id number] [place] [address] ([facility]) BASIC METABOLI C PANEL+MG CREATININE [MASS/VOLU ME] IN SERUM OR PLASMA 0.9 mg/dL 0.7 - 1.2 11/12 Specimen Type: PLASMA No comment entered. Ordering Provider: CLARI THOMPSON Report Released Date/Time: Oct 16, 2023 04:45 PM Reporting Lab: [facility] [address] Performing Lab: [facility] [address] [place] ([facility]) BASIC METABOLI C PANEL+MG UREA NITROGEN [MASS/VOLU ME] IN SERUM OR PLASMA 11 mg/dL 8 - 26 11/12 Specimen Type: PLASMA No comment entered. Ordering Provider: CLARI THOMPSON Report Released Date/Time: Oct 16, 2023 04:45 PM Reporting Lab: [facility] [address] Performing Lab: [facility] [address] [facility]) BASIC METABOLI C PANEL+MG GLUCOSE [MASS/VOLU ME] IN SERUM OR PLASMA 93 mg/dL 70 - 100 11/12 Specimen Type: PLASMA No comment entered. Ordering Provider: CLARI THOMPSON Report Released Date/Time: Oct 16, 2023 04:45 PM Reporting Lab: [facility] [address] Performing Lab: [facility] [address] [facility]) BASIC METABOLI C PANEL+MG SODIUM [MOLES/VOL UME] IN SERUM OR PLASMA 133 mmol/L 136 - 145 11/12 L Specimen Type: PLASMA No comment entered. Ordering Provider: CLARI THOMPSON Report Released Date/Time: Oct 16, 2023 04:45 PM Reporting Lab: [facility] [address] Performing Lab: [facility] [address] [facility]) BASIC METABOLI C PANEL+MG POTASSIUM [MOLES/VOL UME] IN SERUM OR PLASMA 4.1 mmol/L 3.5 - 5.1 11/12 Specimen Type: PLASMA No comment entered. Ordering Provider: CLARI THOMPSON Report Released Date/Time: Oct 16, 2023 04:45 PM Reporting Lab: [facility] [address] Performing Lab: [facility] [address] [place] ([facility]) BASIC METABOLI C PANEL+MG CHLORIDE [MOLES/VOL UME] IN SERUM OR PLASMA 101 mmol/L 98 - 107 11/12 Specimen Type: PLASMA No comment entered. Ordering Provider: CLARI THOMPSON Report Released Date/Time: Oct 16, 2023 04:45 PM Reporting Lab: [facility] [address] Performing Lab: [facility] [address] [place] ([facility]) BASIC METABOLI C PANEL+MG CARBON DIOXIDE, TOTAL [MOLES/VOL UME] IN SERUM OR PLASMA 25 mmol/L 22 - 29 11/12 Specimen Type: PLASMA No comment entered. Ordering Provider: CLARI THOMPSON Report Released Date/Time: Oct 16, 2023 04:45 PM Reporting Lab: [facility] [address] Performing Lab: [facility] [address] [place] ([facility]) BASIC METABOLI C PANEL+MG CALCIUM [MASS/VOLU ME] IN SERUM OR PLASMA 9.3 mg/dL 8.4 - 10.2 11/12 Specimen Type: PLASMA No comment entered. Ordering Provider: CLRAI THOMPSON Report Released Date/Time: Oct 16, 2023 04:45 PM Reporting Lab: [facility] [address] Performing Lab: [facility] [address] [place] ([facility]) BASIC METABOLI C PANEL+MG MAGNESIUM [MASS/VOLU ME] IN SERUM OR PLASMA 1.9 mg/dL 1.6 - 2.6 11/12 Specimen Type: PLASMA No comment entered. Ordering Provider: CLARI THOMPSON Report Released Date/Time: Oct 16, 2023 04:45 PM Reporting Lab: [facility] [address] Performing Lab: [facility] [address] [place] ([facility]) BASIC METABOLI C PANEL+MG ANION GAP IN SERUM OR PLASMA 7 mmol/L 5 - 15 11/12 Specimen Type: PLASMA No comment entered. Ordering Provider: CLARI THOMPSON Report Released Date/Time: Oct 16, 2023 04:45 PM Reporting Lab: [facility] [address] Performing Lab: [facility] [address] [place] ([facility]) BASIC METABOLI C PANEL+MG GLOMERULAR FILTRATION RATE/1.73 SQ M.PREDICTE D [VOLUME RATE/AREA] IN SERUM, PLASMA OR BLOOD BY CREATININE -BASED FORMULA (CKD-EPI 2020) 88 60 11/12 Specimen Type: PLASMA No comment entered. Ordering Provider: CLARI THOMPSON Report Released Date/Time: Oct 16, 2023 04:45 PM Reporting Lab: [facility] [address] Performing Lab: [facility] [address] [facility] ([facility]) ANTI-HAV IGG & IGM HEPATITIS A VIRUS IGM AB [PRESENCE] IN SERUM NEGATIVE 11/12 Specimen Type: SERUM No comment entered. Ordering Provider: CLARI THOMPSON Report Released Date/Time: Oct 16, 2023 04:45 PM Reporting Lab: [facility] [address] Performing Lab: [facility] [address] [facility] [facility]) ANTI-HAV IGG & IGM HEPATITIS A VIRUS IGG AB [PRESENCE] IN SERUM NEGATIVE 11/12 Specimen Type: SERUM No comment entered. Ordering Provider: CLARI THOMPSON Report Released Date/Time: Oct 16, 2023 04:45 PM Reporting Lab: [facility] [address] Performing Lab: [facility] [address] [place] ([facility]) HBsAg HEPATITIS B VIRUS SURFACE AG [PRESENCE] IN SERUM NEGATIVE 11/12 Specimen Type: SERUM No comment entered. Ordering Provider: CLARI THOMPSON Report Released Date/Time: Oct 16, 2023 04:45 PM Reporting Lab: [facility] [address] Performing Lab: [facility] [address] [place] ([facility]) ANTI-HBc TOTAL W/RELEX TO IGM HEPATITIS B VIRUS CORE AB [PRESENCE] IN SERUM NEGATIVE 11/12 Specimen Type: SERUM No comment entered. Ordering Provider: CLARI THOMPSON Report Released Date/Time: Oct 16, 2023 04:45 PM Reporting Lab: [facility] [address] Performing Lab: [facility] [address] [facility]) Vital Signs Combined list of inpatient [...] DC Date Status Disposition Source [place] [facility] Outpatient Encounter [id number] CRYSTAL OSBORNE 10/18 [facility] Outpatient Encounter [id number] 10/22 [facility] ([facility]) OFFICE O/P EST MOD 30-39 MIN [id number] Diagnos is: ICD-10- CM Z00.00 Encntr for general adult medical exam w/o abnorma l finding s
GERTRUDIS THOMPSON 10/22 [place] ([facility]) [facility] Outpatient Encounter [id number] [facility] Outpatient Encounter [id number] Berkley FINLEY 05/06 [facility] Outpatient Encounter [id number] [facility] Encounter [id number] GERTRUDIS THOMPSON 06/11 [facility] Outpatient Encounter [id number] Aquiles SEGOVIA 06/18 [facility] ([facility]) OFFICE O/P EST LOW 20 MIN [id number] Diagnos is: ICD-10- CM D48.5 Neoplas m of uncerta in behavio r of skin
GERTRUDIS THOMPSON 06/24 [place] ([facility]) [place] ([facility]) UNLISTED SPEC DERM SVC/PX [id number] Diagnos is: ICD-10- CM D48.5 Neoplas m of uncerta in behavio r of skin
JULIANNE STERN 06/24 [place] ([facility]) [facility] Outpatient Encounter [id number] Diagnos is: ICD-10- CM D48.5 Neoplas m of uncerta in behavio r of skin
CHUSID,LANDON ECCA L 06/24 [facility] OFFICE O/P EST MOD 30 MIN [id number] Diagnos is: ICD-10- CM D48.5 Neoplas m of uncerta in behavio r of skin
SOUTOR,CAR OL A 07/01 [facility] Outpatient Encounter [id number] VERONICA KARIMI L 07/06 [facility] Outpatient Encounter [id number] Diagnos is: ICD-10- CM C44.41 Basal cell carcino ma of skin of scalp and neck
TAE HELLER 07/06 [facility] Outpatient Encounter [id number] 07/14 [facility] ([facility]) OFFICE O/P EST HI 40 MIN [id number] Diagnos is: ICD-10- CM Z00.00 Encntr for general adult medical exam w/o abnorma l finding s
GERTRUDIS THOMPSON 10/08 [facility] ([facility]) [facility] Outpatient Encounter [id number] 12/01 [facility] Outpatient Encounter [id number] NICHO JAMES RK R 12/21 [facility] Outpatient Encounter [id number] Denzel RUIZ 12/21 [facility] OFFICE O/P NEW MOD 45 MIN [id number] Diagnos is: ICD-10- CM R33.9 Retenti on of urine, unspeci fied
GINA STONE 12/28 [facility]EMI [facility] [place] [facility] Outpatient Encounter [id number] 01/01 SHIVAMAP OLCHUCK [facility] [place] [facility] Outpatient Encounter [id number] Denzel RUIZ M 01/01 [facility] Social History Combined list of available smoking, tobacco, and other social history from Department of Defense and Veterans Affairs facilities. Social History Type Response Date Comment Sour e Tobacco smoking status NHIS VA-TOBACCO FORMER USER 10/09/2023 [place] [facility]) History of tobacco use VA-TOBACCO QUIT 5 TO < 15 YRS 10/09/2023 [facility] [facility]) History of tobacco use VA-TOBACCO FORMER USER 10/22/2022 [facility] [facility]) History of tobacco use VA-TOBACCO QUIT 5 TO < 15 YRS 10/11/2021 [place] [facility]) History of tobacco use VA-TOBACCO FORMER USER 10/11/2020 [place] [facility]) History of tobacco use VA-TOBACCO QUIT 1 TO < 5 YRS 09/13/2019 [facility] [facility]) History of tobacco use VA-TOBACCO QUIT 5 TO < 15 YRS 10/09/2017 [facility] [facility]) History of tobacco use CURRENT TOBACCO USER 10/08/2017 [facility] [facility]) History of tobacco use FORMER TOBACCO US ER 7Y OR GREATER 10/02/2016 [facility] [facility]) History of tobacco use CURRENT TOBACCO USER 09/21/2015 [facility]) Plan of Care List of future care activities from Department of Veterans Affairs facilities. Additional future care activities may be listed in the Assessment and Plan section. Date/Time Care Activity Care Activity Detail Facili ty 02/02/2024 AMBULATORY - SURGERY AMBULATORY - SURGERY [facility] 02/19/2024 AMBULATORY - SURGERY AMBULATORY - SURGERY [facility]
--- OUTSIDE RECORDS SUMMARY | 2024-01-06 16:45 | XMS_ITS | Clinical Summary ---
Author Organization [facility] Address [place], [place] [address] Care Team Providers Care Racing Car Driver Name Role Phone Sobia Muhammad MD Unavailable [...] Encounters Date Type Department Care Team Description 01/05/2024 Telephone [facility] [address] [place], [place] [id number] Jessenia Dejesus PA Appointment Request 12/23/2023 11:20 AM CDT Office Visit [facility] [address] [place] [address] Cain Garcia MD ER Follow up ([facility], 12/20/2023, abdominal pain) 12/23/2023 Travel 12/20/2023 Orders Only [facility] Scanner 1 scan: (1-Ord) [facility], ABDOMEN PELVIS W/CONTRAST, 12/20/2023 12/20/2023 Orders Only [facility] Scanner 1 scan: (1-Ord) [facility], US ABDOMEN LIMITED, 12/20/2023 12/20/2023 Orders Only [facility] Scanner 1 scan: (1-Ord) [facility], URINE CULTURE , 12/20/2023 12/20/2023 Orders Only [facility] Scanner 1 scan: (1-Ord) [facility], MULTIPLE LAB RESULTS , 12/20/2023 12/02/2023 3:20 PM CDT Office Visit [facility] [address] [place] [address] Cain Garcia MD Medicare ANNUAL (subsequent) Visit [...] T Respiratory Rate 16 05/10/2022 11:05 AM FUSING MACHINE FEEDER Oxygen Saturation 94% 12/23/2023 11:19 AM CDT Inhaled Oxygen Concentration - - Weight 83.9 kg (185 lb) 12/23/2023 11:19 AM CDT Height 160 cm (5' 3) 12/02/2023 3:10 PM CDT Body Mass Index 32.77 12/02/2023 3:10 PM CDT Plan of Treatment Upcoming Encounters Date Type Department Care Team (Late st Contact Info) Description 01/12/2024 9:00 AM FUSING MACHINE FEEDER Office Visit [facility] [address] [place] [address] Jessenia Dejesus PA [address] [place] [address] 03/11/2024 11:15 AM FUSING MACHINE FEEDER Office Visit [facility] [address] [place] [address] Rossi Arauz MD [address] [place] [address] Health Maintenance Due Date Last Done Comments [...] REPORT 12/20/2023 12:00 AM CDT SCAN-LABORATORY REPORT 4 12:00 AM CDT SCAN-CT INTERPRETATION 4 12:00 AM CDT SCAN-ULTRASOUND REPORT 4 12:[address] CHEST WO Routine 03/09/2020 8:31 AM FUSING MACHINE FEEDER Pneumonitis ANTI HCV Routine 02/14/2015 8:53 AM FUSING MACHINE FEEDER Need for hepatitis C screening test from [...] * CT CHEST WO (03/09/2020 8:31 AM FUSING MACHINE FEEDER) Anatomical Region Laterality Modality CHEST, THORAX, HEART Computed To mography 03/09/2020 8:31 AM FUSING MACHINE FEEDER Narrative 03/09/2020 9:00 AM FUSING MACHINE FEEDER EXAM: CT CHEST WO LOCATION: [facility] IMAGING DATE/TIME: 03/09/2020 8:31 AM INDICATION: Pneumonitis [...] - 03/09/2020 EXAM: CT CHEST WO LOCATION: [facility] IMAGING DATE/TIME: 03/09/2020 8:31 AM INDICATION: Pneumonitis [...] Diagnostic criteria for idiopathic pulmonary fibrosis: a [facility] White Paper. Lancet Respir Med 2018; 6: [...] Joe Art DO CT * ANTI HCV [16689.2] (02/14/2015 8:53 AM FUSING MACHINE FEEDER) HEPATITIS C ANTIBODY Non-Reacti ve Non-Reacti ve 02/14/2015 4:46 PM FUSING MACHINE FEEDER [facility] [employer] [facility] Blood specimen (specimen) BLOOD SPECIMEN / Unknown Venipuncture / Unknown 02/14/2015 8:53 AM FUSING MACHINE FEEDER 02/14/2015 8:54 AM FUSING MACHINE FEEDER Narrative [facility] - 02/14/2015 4:46 PM FUSING MACHINE FEEDER Antibodies to HCV not detected; does not exclude the possibility of exposure to HCV. Cain Garcia MD SEND OUTS [facility] [address] [place] [address], [place] from Last 3 Months or Most Recently Relevant to Health Maintenance Advance Directives * Full Code (Latest Code Status on File) Date Activated Date Inactivated Comments 10/26/2019 2:45 PM 10/27/2019 12:18 PM Question Answer Comments Code Status Discussion: Not Discussed Care Teams Racing Car Driver Relationship Specialty Start Date End Date Cain Garcia MD [address] [place] [address] PCP - General Family Practice 03/13/21 Sobia Muhammad MD [address] [place] [address] Dermatology 02/11/12 Sobia Muhammad MD [address] [place] [address] Dermatology Dermatology 06/11/12
--- OUTSIDE RECORDS SUMMARY | 2024-01-06 16:45 | XMS_ITS | Encounter Summary ---
Author Name [facility] [place] [facility] [place] Organization [facility] [place] [facility] [place] Address [address] [place] [address] Care Team Providers Care Order Dispatcher Chief Name Role Phone RAI THOMPSON Primary [...] SUPPL EMENT Mar 03, 2015 PLAN N [id number] [phone] RADHA SIMON PATIENT MEDICARE (WNR) MEDICARE (M) PART B Mar 03, 2015 PART B [id number] RADHA SIMON PATIENT MEDICARE (WNR) MEDICARE (M) PART A Jan 01, 2011 PART A [id number] RADHA SIMON PATIENT Selected Encounter This section includes the information on record at [place] for the Encounter. Date/Time Encounter Type Encounter Description Reason Provider Source Dec 29, 2023 12:30 PM OFFICE O/P NEW MOD 45 MIN UROLOGY CLINIC ICD-10-CM R33.9 Retention of urine, unspecified JEAN-PAUL STONE [facility] Encounter Template Text not used by [facility] Assessments - Encounter Diagnoses This section includes the primary and secondary diagnoses documented for the Encounter. Date/Time Primary/Secondary Diagnosis Diagnosis Name Provider Source Dec 29, 2023 02:59 PM PRIMARY Retention of urine, unspecified JEAN-PAUL STONE [facility] Dec 29, 2023 02:59 PM SECONDARY Malignant neoplasm of prostate JEAN-PAUL STONE [facility] Plan of Treatment: Future Appointments (+ 6 months) and Future Tests (+/- 45 days) The Plan of Treatment section includes future care activities for the patient from all [place] treatmentfacilities. This section includes future appointments and future orders which are active, pending or scheduled. Future Appointments This section includes appointments that were scheduled to occur 6 months from the date of the Encounter, up to a maximum of 20 appointments. The data comes from all [place] treatment facilities. Appointment Date/Time Appointment Type Appointme nt Facility Name Jan 02, 2024 09:55 AM AMBULATORY - NONE [facility] Feb 02, 2024 08:30 AM AMBULATORY - SURGERY [facility] Feb 19, 2024 08:00 AM AMBULATORY - SURGERY [facility] Encounter Notes: All associated encounter notes This section contains the clinical notes associated to the Encounter. Date/Time Encounter Note(s) Provider Source Jan 05, 2024 09:39 AM ADDENDUM: LOCAL TITLE: Addendum STANDARD TITLE: ADDENDUM DATE OF NOTE: JAN 05, 2024@09:39:18 ENTRY DATE: JAN 05, 2024@09:39:20 AUTHOR: JEAN-PAUL STONE EXP COSIGNER: URGENCY: STATUS: COMPLETED Orders placed for UDS and cath change prior to our follow up appt in /alma/ PAUL CADENA UROLOGY PHYSICIAN MAINTENANCE OPERATOR Signed: 01/05/2024 09:39 Receipt Acknowledged By: 01/05/2024 10:53 /alma/ HERB LEE RN STAFF NURSE --- Original Document --- 12/29/23 UROLOGY CONSULT: Chief Complaint:urinary retention, prostate cancer. RADHA Otero [...] since surgery. He has been following with [place] [facility] and note from 05/2020 shows that [...] otherwise neg. UC neg. PAST MEDICAL HISTORY Chronic obstructive lung disease (SCT 13Tobacco use (SCT 862048952) Low back pain (SCT 088839218) BPH - Benign prostatic hypertrophy (SCT 647932292) Polyp Colon (SCT 96764680) Exposure to potentially hazardous substance (SCT 560355466706330) Primary malignant neoplasm of prostate ( PAST SURGICAL HISTORY SURGERIES - TURP 11/2016 Medications: Active Outpatient [...] Allergies: Patient has answered NKA FAMILY HISTORY Hx of prostate cancer: dad (lived 15 years with it) and brother both . Hx of renal cancer: denies Hx of bladder cancer: denies SOCIAL HISTORY Lives at home with: Tobacco use: 40 [...] rashes Heme: denies easy bruising/bleeding PHYSICAL EXAM == Gen: no acute distress, axox3 Neck: no [...] RAFAELA: deferred PVR today: voiding trial. LABS: == PSA 2.76 SERUM (10/09/23 11:20) 2.77 SERUM [...] PLASMA UREA NITROGEN 11 mg/dL 8 - 11/13/2023 10:11 PLASMA CREATININE 0.9 mg/dL 0.7 [...] PLASMA .CREAT EGFR(CKD-E 88 Ref: >=60 IMAGING ===== Ct abd/pelvis- 12/20/23- left extrarenal pelvis, TURP [...] of care. /alma/ PAUL CADENA UROLOGY PHYSICIAN MAINTENANCE OPERATOR Signed: 12/29/2023 14:59 01/02/2024 ADDENDUM STATUS: COMPLETED reports he had catheter placed at [facility] on 01/02/24. He moved up urology f/u but soonest provider appointment 02/19/24. Vet would like sooner appointment to address catheter: co-signing provider for updated orders (nurse clinic TOV? UDS?). Thanks. /alma/ HERB LEE RN STAFF NURSE Signed: 01/02/2024 15:00 Receipt Acknowledged By: 01/05/2024 09:39 /alma/ PAUL CADENA UROLOGY PHYSICIAN MAINTENANCE OPERATOR JEAN-PAUL STONE [facility] Jan 02, 2024 02:56 PM ADDENDUM: LOCAL TITLE: Addendum STANDARD TITLE: ADDENDUM DATE OF NOTE: JAN 02, 2024@14:56:54 ENTRY DATE: JAN 02, 2024@14:56:56 AUTHOR: HERB LEE COSIGNER: URGENCY: STATUS: COMPLETED reports he had catheter placed at OSH on 01/02/24. He moved up urology f/u but soonest provider appointment 02/19/24. Vet would like sooner appointment to address catheter: co-signing provider for updated orders (nurse clinic TOV? UDS?). Thanks. /jarek LEE RN STAFF NURSE Signed: 01/02/2024 15:00 Receipt Acknowledged By: 01/05/2024 09:39 /alma/ PAUL CADENA UROLOGY PHYSICIAN MAINTENANCE OPERATOR --- Original Document --- 12/29/23 UROLOGY CONSULT: Chief Complaint:urinary retention, prostate cancer. RADHA Otero [...] since surgery. He has been following with [place] [facility] and note from 05/2020 shows that [...] otherwise neg. UC neg. PAST MEDICAL HISTORY Chronic obstructive lung disease (SCT 13Tobacco use ([facility] 454578171) Low back pain ([facility] 496957572) BPH - Benign prostatic hypertrophy ([facility] 665547338) Polyp Colon ([facility] 93346215) Exposure to potentially hazardous substance ([facility] 176105194256262) Primary malignant neoplasm of prostate ( PAST SURGICAL HISTORY SURGERIES - TURP 11/2016 Medications: Active Outpatient [...] Allergies: Patient has answered NKA FAMILY HISTORY Hx of prostate cancer: dad (lived 15 years with it) and brother both . Hx of renal cancer: denies Hx of bladder cancer: denies SOCIAL HISTORY Lives at home with: Tobacco use: 40 [...] rashes Heme: denies easy bruising/bleeding PHYSICAL EXAM == Gen: no acute distress, axox3 Neck: no [...] RAFAELA: deferred PVR today: voiding trial. LABS: == PSA 2.76 SERUM (10/09/23 11:20) 2.77 SERUM [...] PLASMA .CREAT EGFR(CKD-E 88 Ref: >=60 IMAGING ===== Ct abd/pelvis- 12/20/23- left extrarenal pelvis, TURP [...] of care. /alma/ PAUL CADENA UROLOGY PHYSICIAN MAINTENANCE OPERATOR Signed: 12/29/2023 14:59 01/05/2024 ADDENDUM STATUS: UNSIGNED You may not VIEW this UNSIGNED Addendum. EHRB LEE [facility] Dec 29, 2023 01:18 PM UROLOGY NURSING [...] PRACTICAL NURSE Signed: 12/29/2023 13:21 LEXIS RICH [facility] Dec 29, 2023 11:39 AM UROLOGY CONSULT: LOCAL TITLE: UROLOGY CONSULT STANDARD TITLE: UROLOGY CONSULT DATE OF NOTE: DEC 29, 2023@11:39 ENTRY DATE: DEC 29, 2023@11:40:07 AUTHOR: JEAN-PAUL STONE EXP COSIGNER: URGENCY: STATUS: COMPLETED UROLOGY CONSULT Has ADDENDA Chief Complaint:urinary retention, prostate cancer. RADHA Otero is a 78 year old [place] with PMH ofCOPD, LBP, BPH and prostate [...] since surgery. He has been following with [facility] and note from 05/2020 shows that [...] otherwise neg. UC neg. PAST MEDICAL HISTORY Chronic obstructive lung disease (SCT 13Tobacco use (SCT 919344039) Low back pain (SCT 504312376) BPH - Benign prostatic hypertrophy (SCT 232754952) Polyp Colon (SCT 00207751) Exposure to potentially hazardous substance (SCT 790538620679045) Primary malignant neoplasm of prostate ( PAST SURGICAL HISTORY SURGERIES - TURP 11/2016 Medications: Active Outpatient [...] Allergies: Patient has answered NKA FAMILY HISTORY Hx of prostate cancer: dad (lived 15 years with it) and brother both . Hx of renal cancer: denies Hx of bladder cancer: denies SOCIAL HISTORY Lives at home with: Tobacco use: 40 [...] rashes Heme: denies easy bruising/bleeding PHYSICAL EXAM == Gen: no acute distress, axox3 Neck: no [...] RAFAELA: deferred PVR today: voiding trial. LABS: == PSA 2.76 SERUM (10/09/23 11:20) 2.77 SERUM [...] PLASMA .CREAT EGFR(CKD-E 88 Ref: >=60 IMAGING ===== Ct abd/pelvis- 12/20/23- left extrarenal pelvis, TURP [...] of care. /alma/ PAUL CADENA UROLOGY PHYSICIAN MAINTENANCE OPERATOR Signed: 12/29/2023 14:59 01/02/2024 ADDENDUM STATUS: COMPLETED [place] reports he had catheter placed at OSH on 01/02/24. He moved up urology f/u but soonest provider appointment 02/19/24. Vet would like sooner appointment to address catheter: co-signing provider for updated orders (nurse clinic TOV? UDS?). Thanks. /alma/ HERB LEE RN STAFF NURSE Signed: 01/02/2024 15:00 Receipt Acknowledged By: 01/05/2024 09:39 /alma/ PAUL CADENA UROLOGY PHYSICIAN MAINTENANCE OPERATOR 01/05/2024 ADDENDUM STATUS: COMPLETED Orders placed for UDS and cath change prior to our follow up appt in Jan. /PAUL Hammonds UROLOGY PHYSICIAN MAINTENANCE OPERATOR Signed: 01/05/2024 09:39 Receipt Acknowledged By: * AWAITING SIGNATURE * HERB LEE GABRIELLE [facility]
--- OUTSIDE RECORDS SUMMARY | 2024-01-06 16:45 | XMS_ITS | Encounter Summary ---
Author Name [facility] [place] Organization [facility] [place] [place] Address [address] [place] [address] Care Team Providers Care Clinical Program Consultant Name Role Phone RAI THOMPSON Primary Care [...] SUPPL EMENT Mar 03, 2015 PLAN N [id number] [phone] RADHA SIMON PATIENT MEDICARE (WNR) MEDICARE (M) PART B Mar 03, 2015 PART B [id number] RADHA SIMON PATIENT MEDICARE (WNR) MEDICARE (M) PART A Jan 01, 2011 PART A [id number] RADHA SIMON PATIENT Selected Encounter This section includes the information on record at [place] for the Encounter. Date/Time Encounter Type Encounter Description Reason Provider Source Jan 02, 2024 09:55 AM Outpatient Encounter ADMIN PAT ACTIVTIES (MASNONCT) ARIEL RUIZ IHE Encounter Template Text not used by [place] Plan of Treatment: Future Appointments (+ 6 months) and Future Tests (+/- 45 days) The Plan of Treatment section includes future care activities for the [facility] This section includes future appointments and future orders which are active, pending or scheduled. Future Appointments This section includes appointments that were scheduled to occur 6 months from the date of the Encounter, up to a maximum of 20 appointments. The data comes from all [facility]. Appointment Date/Time Appointment Type Appointme nt Facility Name Feb 02, 2024 08:30 AM AMBULATORY - SURGERY [facility] Feb 19, 2024 08:00 AM AMBULATORY - SURGERY [facility] Encounter Notes: All associated encounter notes This section contains the clinical notes associated to the Encounter. Date/Time Encounter Note(s) Provider Source Jan 02, 2024 12:58 PM ADDENDUM: LOCAL TITLE: Addendum STANDARD TITLE: ADDENDUM DATE OF NOTE: JAN 02, 2024@12:58:01 ENTRY DATE: JAN 02, 2024@12:58:02 AUTHOR: RAI THOMPSON EXP COSIGNER: URGENCY: STATUS: COMPLETED FYI...I reviewed the current scanned document and it is only listing information from the 12/20/2023 ER visit but was printed on 01/02/2024. /alma/ RAI THOMPSON MD PHYSICIAN Signed: 01/02/2024 12:59 Receipt Acknowledged By: 01/02/2024 13:44 /es/ DEEDEE PRECIADO RN Community Farm Adviser --- Original Document --- 01/02/24 [facility] PRESENTING CARE COORD PLAN NOTE: Emergency Notification Intake Date Presenting to the Facility: Jan Method of Contact: Notified from ECR worklist Notification ID: [id number] [facility] Referral #: [facility] Name: Hospital: [facility] Address: City: [place] State: [place] Zip Code: Phone : [facility] Facility Point of Contact: Name: RAMO CABRAL Chief complaint: UNABLE TO VOID Primary Diagnosis: Disposition Unknown at time of intake note entry /es/ ANGELINE RIVERA HEALTH RESTAURANT TEAM MEMBER Signed: 01/02/2024 09:58 Receipt Acknowledged By: 01/02/2024 11:09 /alma/ Sofia Oliveira MA, PHN, RN-BC programming development project manager Farm Adviser for ARIEL RUIZ 01/02/2024 ADDENDUM STATUS: COMPLETED Forwarding per social split to the surrogate CCUM RN for continuity of care. /alma/ Sofia Oliveira MA, PHN, RN-BC programming development project manager Farm Adviser Signed: 01/02/2024 11:08 Receipt Acknowledged By: 01/02/2024 12:37 /alma/ DEEDEE PRECIADO programming development project manager Farm Adviser 01/02/2024 ADDENDUM STATUS: COMPLETED [place] was seen in a Community ED. Records uploaded to chart. Please review and follow up as appropriate. /alma/ DEEDEE PRECAIDO programming development project manager Farm Adviser Signed: 01/02/2024 12:39 Receipt Acknowledged By: 01/02/2024 12:57 /alma/ RAI THOMPSON MD PHYSICIAN * AWAITING SIGNATURE * VEE GAN 01/02/2024 ADDENDUM STATUS: COMPLETED VistA Imaging Scanned Document - Addendum. 01/02/24 [facility] SCANNED DOCUMENT SIGNATURE NOT REQUIRED Electronically Filed: 01/02/2024 by: DEEDEE PRECIADO programming development project manager Farm Adviser RAI THOMPSON [facility] Jan 02, 2024 12:39 PM ADDENDUM: LOCAL TITLE: Addendum STANDARD TITLE: ADDENDUM DATE OF NOTE: JAN 02, 2024@12:39:10 ENTRY DATE: JAN 02, 2024@12:39:12 AUTHOR: DEEDEE HENDRIX COSIGNER: URGENCY: STATUS: COMPLETED was seen in a Community ED. Records uploaded to chart. Please review and follow up as appropriate. /alma/ DEEDEE PRECIADO programming development project manager Farm Adviser Signed: 01/02/2024 12:39 Receipt Acknowledged By: 01/02/2024 12:57 /alma/ RAI THOMPSON MD PHYSICIAN * AWAITING SIGNATURE * VEE GAN --- Original Document --- 01/02/24 [facility] SELF PRESENTING CARE COORD PLAN NOTE: Emergency Notification Intake Date Presenting to the Facility: Jan Method of Contact: Notified from ECR worklist Notification ID: [id number] [facility] Referral #: [facility] Name: Hospital: [facility] Address: City: [place] State: [place] Zip Code: Phone : Community Facility Point of Contact: Name: RAMO CABRAL Chief complaint: UNABLE TO VOID Primary Diagnosis: Disposition Unknown at time of intake note entry /es/ ANGELINE RIVERA [employer] RESTAURANT TEAM MEMBER Signed: 01/02/2024 09:58 Receipt Acknowledged By: 01/02/2024 11:09 /es/ Sofia Oliveira MA, PHN, RN-BC programming development project manager Farm Adviser for ARIEL RUIZ 01/02/2024 ADDENDUM STATUS: COMPLETED Forwarding per social split to the surrogate CCUM RN for continuity of care. /alma/ Sofia Oliveira MA, PHN, RN-BC programming development project manager Farm Adviser Signed: 01/02/2024 11:08 Receipt Acknowledged By: 01/02/2024 12:37 /es/ DEEDEE PRECIADO programming development project manager Farm Adviser 01/02/2024 ADDENDUM STATUS: COMPLETED VistA Imaging Scanned Document - Addendum. 01/02/24 [facility] SCANNED DOCUMENT SIGNATURE NOT REQUIRED Electronically Filed: 01/02/2024 by: DEEDEE PRECIADO programming development project manager Farm Adviser 01/02/2024 ADDENDUM STATUS: UNSIGNED You may not VIEW this UNSIGNED Addendum. DEEDEE HENDRIX [facility] Jan 02, 2024 11:08 AM ADDENDUM: LOCAL TITLE: Addendum STANDARD TITLE: ADDENDUM DATE OF NOTE: JAN 02, 2024@11:08:37 ENTRY DATE: JAN 02, 2024@11:08:38 AUTHOR: SOFIA OLIVEIRA EXP COSIGNER: URGENCY: STATUS: COMPLETED Forwarding per social split to the surrogate CCUM RN for continuity of care. /alma/ Sofia Oliveira MA PHN, RN-BC programming development project manager Farm Adviser Signed: 01/02/2024 11:08 Receipt Acknowledged By: 01/02/2024 12:37 /alma/ DEEDEE PRECIADO RN Community Farm Adviser --- Original Document --- 01/02/24 [facility] PRESENTING CARE COORD PLAN NOTE: Emergency Notification Intake Date Presenting to the Facility: Jan Method of Contact: Notified from Innohat worklist Notification ID: [id number] [facility] Referral #: [facility] Name: Hospital: [facility] Address: City: [place] State: [place] Zip Code: Phone : [facility] Facility Point of Contact: Name: RAMO CABRAL Chief complaint: UNABLE TO VOID Primary Diagnosis: Disposition Unknown at time of intake note entry /alma/ ANGELINE RIVERA HE[employer] RESTAURANT TEAM MEMBER Signed: 01/02/2024 09:58 Receipt Acknowledged By: 01/02/2024 11:09 /alma/ Sofia Oliveira MA, PHN, RN-BC programming development project manager Farm Adviser for ARIEL RUIZ SOFIA OLIVEIRA [facility] Jan 02, 2024 09:57 AM NONVA NOTE: LOCAL TITLE: [facility]ITY [facility]ELF PRESENTING CARE COORD PLAN STANDARD TITLE: NONVA NOTE DATE OF NOTE: JAN 02, 2024@09:57 ENTRY DATE: JAN 02, 2024@09:57:29 AUTHOR: ANGELINE RIVERA EXP COSIGNER: URGENCY: STATUS: COMPLETED [facility]F PRESENTING CARE COORD PLAN NOTE Has ADDENDA Emergency Notification Intake Date Presenting to the Facility: Jan Method of Contact: Notified from ECR worklist Notification ID: [id number] [facility] Referral #: [facility] Hospital Name: Hospital: [facility] Address: City: [place] State: [place] Zip Code: Phone : Community Facility Point of Contact: Name: RAMO CABRAL Chief complaint: UNABLE TO VOID Primary Diagnosis: Disposition Unknown at time of intake note entry /alma/ ANGELINE RIVERA HE[employer] RESTAURANT TEAM MEMBER Signed: 01/02/2024 09:58 Receipt Acknowledged By: 01/02/2024 11:09 /es/ Sofia Oliveira MA, PHN, RN-BC programming development project manager Farm Adviser for ARIEL RUIZ 01/02/2024 ADDENDUM STATUS: COMPLETED Forwarding per social split to the surrogate CCUM RN for continuity of care. /alma/ Sofia Oliveira MA, PHN, RN-BC programming development project manager Farm Adviser Signed: 01/02/2024 11:08 Receipt Acknowledged By: 01/02/2024 12:37 /alma/ DEEDEE PRECIADO programming development project manager Farm Adviser 01/02/2024 ADDENDUM STATUS: COMPLETED was seen in a Community ED. Records uploaded to chart. Please review and follow up as appropriate. /alma/ DEEDEE PRECIADO RN Community Farm Adviser Signed: 01/02/2024 12:39 Receipt Acknowledged By: 01/02/2024 12:57 /alma/ RAI THOMPSON MD PHYSICIAN 01/02/2024 ADDENDUM STATUS: COMPLETED VistA Imaging Scanned Document - Addendum. 01/02/24 [facility] SCANNED DOCUMENT SIGNATURE NOT REQUIRED Electronically Filed: 01/02/2024 by: DEEDEE PRECIADO RN Community Farm Adviser 01/02/2024 ADDENDUM STATUS: COMPLETED FYI...I reviewed the current scanned document and it is only listing information from the 12/20/2023 ER visit but was printed on 01/02/2024. /alma/ RAI THOMPSON MD PHYSICIAN Signed: 01/02/2024 12:59 Receipt Acknowledged By: 01/02/2024 13:44 /alma/ DEEDEE PRECIADO RN Community Farm Adviser 01/02/2024 ADDENDUM STATUS: COMPLETED Requested records from facility will scan records in once available. /alma/ DEEDEE PRECIADO RN Community Farm Adviser Signed: 01/02/2024 14:02 ANGELINE RIVERA [facility]
--- OUTSIDE RECORDS SUMMARY | 2024-01-06 16:45 | XMS_ITS | Data Portability ---
Author Organization [place] [facility] [place] [facility] Address [address] [place] [address] Assessment Encounter Date Assessment Date Assessment LastModified [...] Available [facility] [address], [place], [address], 02/02/2020 18:05:51 02/02/2020 urina lysis , dipst ick pH-Status 6.5 Not Available [facility] [address], [place], [address], 02/02/2020 18:05:51 02/02/2020 urina lysis , dipst ick Performed by [place] PA-C Not Available [facility] [address], [place], [address], 02/02/2020 18:05:51 Result Notes None recorded. Procedures Surgical History Date Name Laterality Status Provider Name and Address Organization Details Recorded Time 0 Urodynamic Studies completed LUCIEN Ballesteros [address] [place] [address],[address], [place], [address], [facility] 02/02/2020 16:59:55 Imaging Results None recorded. [...] Updated DateTime 02/11/2020 160.02 cm 29.6 kg/m2 50442[address] [facility] 02/11/2020 13:52:19 Social History Question Answer Notes LastModified by Organizat ion Details LastModified Time Tobacco Smoking Status Former Smoker Anish Ortega [facility] 02/11/2020 13:52:53 What Is Your [...] History Nothing Reported. Medical History Condition Response Diabetes N Sexually Transmitted Infection N Bleeding Disorder N High Blood Pressure N Kidney Stones N Cancer N Lung Disease N Depression N High Cholesterol N GERD/Acid Reflux N Heart Disease N Immunizations Vaccine Type Date Status Provider Name and Address Organization Details Recorded Time Pneumococcal conjugate PCV 13 09/01/2015 completed BALDO Iverson [facility] 02/29/2020 11:29:39 Past Encounters Encounter ID Performer Location Encounter Start Date Encounter Closed Date Diagnosis/Indication Diagnosis SNOMED-CT Code Diagnosis ICD10 Code [id number] LUCIEN Ballesteros [facility] [address] [place] [address] 02/02/2020 14:31:51 02/03/2020 08:44:58 Lower urinary tract symptoms due to benign prostatic hypertrophy 9987891863 9101 N40.1 [id number] Koffi Padilla MD [facility] [address] [place] [address] 02/11/2020 12:51:00 02/11/2020 14:34:18 Lower urinary tract symptoms due to benign prostatic hypertrophy 1165183134 9101 N40.1 Malignant tumor of prostate 843516966 C61 Health Concerns Section Related Observation LastModified by Organization Detai ls LastModified Time None Recorded Concern Status LastModified by Organization Details LastModified Time None Recorded Advance Directives Directive None Recorded Payers Encounter Date Sequence Insurance Name Policy Number Policy Serrato Covered Member ID Serrato Member ID Guarantor Name 02/02/2020 1 [facility] (MEDICARE REPLACEMENT/A DVANTAGE - PPO) [id number] Luisito Caldera [id number] Luisito Caldera 02/11/2020 1 [facility] (MEDICARE REPLACEMENT/A DVANTAGE - PPO) [id number] Luisito Caldera [id number] Luisito L Caldera Notes Date Note Type [...] any further intervention. Koffi Padilla MD [address], [place], [address], [facility] 05/22/2020 10:49:13
--- OUTSIDE RECORDS SUMMARY | 2024-01-06 16:45 | XMS_ITS | Encounter Summary ---
Author Name [facility] [place] [facility] [place] Address [address] [place] [address] Care Team Providers Care Can Line Examiner Name Role Phone RAI THOMPSON Primary Care [...] Serrato's Name Patient's Relationship to Policy Serrato [employer] PLAN N MEDIC ARE SUPPL EMENT Mar 03, 2015 PLAN N [id number] [phone] RADHA SIMON PATIENT MEDICARE (WNR) MEDICARE (M) PART B Mar 03, 2015 PART B [id number] RADHA SIMON PATIENT MEDICARE (WNR) MEDICARE (M) PART A Jan 01, 2011 PART A [id number] RADHA SIMON PATIENT Selected Encounter This section includes the information on record at [place] for the Encounter. Date/Time Encounter Type Encounter Description Reason Pro vider Source Jan 02, 2024 07:42 AM Outpatient Encounter TELEPHONE TRIAGE IHE Encounter Template Text not used by [facility] Plan of Treatment: Future Appointments (+ 6 months) and Future Tests (+/- 45 days) The Plan of Treatment section includes future care activities for the patient from all [place] [facility] This section includes future appointments and future orders which are active, pending or scheduled. Future Appointments This section includes appointments that were scheduled to occur 6 months from the date of the Encounter, up to a maximum of 20 appointments. The data comes from all [facility] facilities. Appointment Date/Time Appointment Type Appointme nt Facility Name Feb 02, 2024 08:30 AM AMBULATORY - SURGERY [facility] Feb 19, 2024 08:00 AM AMBULATORY - SURGERY [facility] Encounter Notes: All associated encounter notes This section contains the clinical notes associated to the Encounter. Date/Time Encounter Note(s) Provider Source Jan 02, 2024 09:04 AM ADDENDUM: LOCAL TITLE: Addendum STANDARD TITLE: ADDENDUM DATE OF NOTE: JAN 02, 2024@09:04:09 ENTRY DATE: JAN 02, 2024@09:04:10 AUTHOR: VEE GAN EXP COSIGNER: URGENCY: STATUS: COMPLETED Alerting Urology Provider and RN from Dec 28 visit to the above stated symptoms. -Cargo Trimmer will monitor Emergency Notification for f/u cares after discharge /alma/ Vee Gan RN [facility] Signed: 01/02/2024 09:05 Receipt Acknowledged By: 01/02/2024 10:16 /es/ LEXIS RICH LPN LICENSED PRACTICAL NURSE 01/05/2024 09:35 /es/ PAUL CADENA UROLOGY PHYSICIAN DESIZING MACHINE BACK TENDER --- Original Document --- 01/02/24 CCC: CLINICAL TRIAGE: Patient Demographics Patient Name: RADHA SIMON Patient Primary Address: [address] [place] [address] [place] [address] Patient Primary Phone: [phone] Patient : 1945 Patient Age: 78 Call Back Number: [phone] Caller/Recipient Relation to Patient: Self Emergency Contact: [...] approval or authorization for payment by the [place] or its staff. Patient advised to report a community ED visit to the [facility] Office of Community Care at within 72 hours. Other course(s) of action Provided guidance for worsening symptoms: *Caller/Patient* advised to call facilities [place] Clinical Contact Center or seek immediate medical attention for new or worsening symptoms Nurse Summary Nurse Summary: [place] provided three identifiers for chart access/review. PATIENT CONCERN/DURATION/ONSET: [place] c/o inability to start urine stream; last urination was last night before going to bed. Positive for intermittent abdominal discomfort, chills/sweats during night, lightheadedness Denies flank pain WHAT HAS PATIENT TRIED TO TREAT THE SYMPTOMS: nothing HISTORY/PREVIOUS TREATMENT: recent indwelling catheter removal, BPH, prostate cancer, WHAT IS PATIENT GOAL FOR THE CALL: direction for care Was Virtual Care Visit considered? No AREA PLANT MANAGER DISPOSITION: Recommended triage is ER Now secondary to: medical history and symptoms [place] verbalizes understanding and agrees with plan of care. Disposition: Informed of the availability of [place] ER 23/09 or local ER without pre-authorization of care/payment. Due to distance from [place] ER, advised to present to local ER facility and call [facility] Centralized Call Center at ([phone]) within 72 hours of rxyny-cj-zzwwbmy-of-care to report visit. [place] agrees with plan of care and states he will go to local ER now. MM sent to PACT for follow up Education: Home education and signs/symptoms to watch for provided as per below ([facility]) with [place] verbalizing understanding of education and recommendations Best contact for is [phone] This note was created by a [facility] wall covering contractor. Please do not alert this nurse by adding as a signer for future communications. Alerts are not monitored by this user, please reach out to [facility] instead if indicated. Clinical Contact Center Codes Clinic/Location: [address] PHONE [facility] RN Decision Support System Output: Triage Complete Triage Date: 01/02/2024, 07:38 AM Triage Note: Decision Support Tool Used: [facility] Phone Triage 02 Jan 2024 12:33:27 +0000 [facility] Demographics 79 y/o Male Results CC: Urinary [...] HPI: numbness, legs, worsening Denies: PMH: UTI [place] Education Verbal Education Provided for: Painful Urination [...] urination IMPORTANT: This note was created by [facility] Clinical Contact Center staff. Please do not alert the staff member by adding them as a signer for future communications. Alerts are not monitored by this user. /alma/ Shasha Schulz BOAT CANVAS MAKER AND INSTALLER MSN Ed V[facility] 23 Daytime Nurse Triage Signed: 01/02/2024 07:[address] [facility] Jan 02, 2024 07:42 AM RN PROGRESS NOTE: LOCAL TITLE: CCC: CLINICAL TRIAGE STANDARD TITLE: RN PROGRESS NOTE DATE OF NOTE: JAN 02, 2024@07:42:32 ENTRY DATE: JAN 02, 2024@07:42:32 AUTHOR: SHASHA SCHULZ HS EXP COSIGNER: URGENCY: STATUS: COMPLETED CCC: CLINICAL TRIAGE Has ADDENDA Patient Demographics Patient Name: RADHA SIMON Patient Primary Address: [address] [place] [address] [place] [address] Patient Primary Phone: [phone] Patient : 1945 Patient Age: 78 Call Back Number: [phone] Caller/Recipient Relation to Patient: Self Emergency Contact: [...] approval or authorization for payment by the [place] or its staff. Patient advised to report a community ED visit to the national Office of Community Care at within 72 hours. Other course(s) of action Provided guidance for worsening symptoms: *Caller/Patient* advised to call facilities [place] Clinical Contact Center or seek immediate medical attention for new or worsening symptoms Nurse Summary Nurse Summary: provided three identifiers for chart access/review. PATIENT CONCERN/DURATION/ONSET: [place] c/o inability to start urine stream; last urination was last night before going to bed. Positive for intermittent abdominal discomfort, chills/sweats during night, lightheadedness Denies flank pain WHAT HAS PATIENT TRIED TO TREAT THE SYMPTOMS: nothing HISTORY/PREVIOUS TREATMENT: recent indwelling catheter removal, BPH, prostate cancer, WHAT IS PATIENT GOAL FOR THE CALL: direction for care Was Virtual Care Visit considered? No AREA PLANT MANAGER DISPOSITION: Recommended triage is ER Now secondary to: medical history and symptoms verbalizes understanding and agrees with plan of care. Disposition: Informed of the availability of [place] ER 23/09 or local ER without pre-authorization of care/payment. Due to distance from [place] ER, advised to present to local ER facility and call [facility] Call Center at ([phone]) within 72 hours of nywnm-cz-mlzmdrz-of-care to report visit. [place] agrees with plan of care and states he will go to local ER now. MM sent to PACT for follow up Education: Home education and signs/symptoms to watch for provided as per below ([facility]) with verbalizing understanding of education and recommendations Best contact for is [phone] This note was created by a [address] wall covering contractor. Please do not alert this nurse by adding as a signer for future communications. Alerts are not monitored by this user, please reach out to [facility] instead if indicated. Clinical Contact Center Codes Clinic/Location: [address] PHONE [facility] RN Decision Support System Output: Triage Complete Triage Date: 01/02/2024, 07:38 AM Triage Note: Decision Support Tool Used: [facility] Phone Triage 02 Jan 2024 12:33:27 +0000 [facility] Demographics 79 y/o Male Results CC: Urinary [...] HPI: numbness, legs, worsening Denies: PMH: UTI Education Verbal Education Provided for: Painful Urination [...] urination IMPORTANT: This note was created by [facility] Clinical Contact Center staff. Please do not alert the staff member by adding them as a signer for future communications. Alerts are not monitored by this user. /alma/ Shasha Schulz RN BSN MSN Ed V[facility] 23 Daytime Nurse Triage Signed: 01/02/2024 07:42 01/02/2024 ADDENDUM STATUS: COMPLETED Alerting Urology Provider and RN from Dec 28 visit to the above stated symptoms. -Cargo Trimmer will monitor Emergency Notification for f/u cares after discharge /alma/ Vee Gan RN [facility] Signed: 01/02/2024 09:05 Receipt Acknowledged By: * AWAITING SIGNATURE * LEXIS RICH * AWAITING SIGNATURE * JEAN-PAUL STONE MAUREEN C [facility]
[2024-01-06 17:10] LABS: Appearance Urine Slightly Cloudy (Clear)
[2024-01-06 17:35] LABS: Bacteria Urine Few; RBC Urine 0-2 (0-2); Squamous Epithelial Cell Urine Few (None-Few)
[2024-01-06 17:48] VITALS: BP 141/92; PULSE 92; RESP 18; O2SAT 92
== END 2024-01-06 17:53 | disposition home or self-care (01) ==
PROVIDERS: Emergency Provider Emergency Medicine; PCP Family Medicine
DX: N48.29 Other inflammatory disorders of penis (principal); Z46.6 Encounter for fitting and adjustment of urinary device
CPT/HCPCS: 81001; 87086; 99283; 99284

== ENCOUNTER 2024-02-11 09:44 | Emergency (ER) | payer OTHER, SELFPAY ==
[2024-02-11 09:49] VITALS: BP 136/68; PULSE 88; RESP 18; TEMP 36.8; O2SAT 96; BMI 31.5
--- NOTE | 2024-02-11 10:03 | ED_ITS ---
HPI - General Adult General Chief complaint: Urogenital Problems, Male Stated complaint: Catheter problems Time Seen by Provider: 02/11/24 10:03 History of Present Illness HPI narrative: Patient presents to the emergency department complaining of hematuria. Patient states this started this morning urine was normal when he emptied from over night. Patient denies being on blood thinners. Patient does not feel like his bladder is full. 79-year-old man presenting to the emergency depart with concern of blood in his urine this morning. Does have a Coles catheter in place for urinary retention. Bleeding started this morning. He does not feel lightheaded or short of breath. Takes daily low-dose aspirin but no other anticoagulation. No fever. Related Data Home Medications ?Medication ?Instructions ?Recorded ?Confirmed albuterol sulfate 90 mcg/actuation 2 puff inhalation Q6H PRN 01/03/22 02/11/24 aerosol inhaler ibuprofen 200 mg tablet (Advil) 200 mg PO Q6H PRN 01/03/22 02/11/24 tiotropium bromide 2.5 2 puff inhalation QDAY 01/03/22 02/11/24 mcg/actuation mist for inhalation (Spiriva Respimat) albuterol sulfate 2.5 mg/3 mL 2.5 mg inhalation Q6H 01/08/22 02/11/24 (0.083 %) solution for nebulization aspirin 81 mg tablet,delayed 81 mg PO QDAY 01/08/22 02/11/24 release fluticasone propion-salmeterol inhalation 01/08/22 [Wixela Inhub] sennosides 8.6 mg capsule (senna) 8.6 mg PO QDAY PRN 01/08/22 02/11/24 tamsulosin 0.4 mg capsule 0.4 mg PO QDAY 01/08/22 02/11/24 Allergies Allergy/AdvReac Type Severity Reaction Status Date / Time No Known Drug Allergies Allergy Verified 02/11/24 09:55 Review of Systems Status of ROS: Reports: 6 or more systems reviewed and unremarkable except as noted in History and below [facility] Medical History Back pain ?M54.9 - Dorsalgia, unspecified (ICD-10) Social History Smoking Status: Never smoker Do you use any of these nicotine containing products: None How often do you have a drink containing alcohol: never How often do you have six or more drinks on one occasion: Never AUDIT-C Alcohol total score: 0 Non-prescribed substance use: denies use service: No Exam Narrative: Exam Narrative: Pleasant. NAD. Skin is warm and dry. Leg bag attached to the right leg. Abdomen is soft and nontender. Coles in place without inflammatory changes about the penis. Const: Vital Signs, click to edit/add: Vital Signs - 24 hr 02/11/24 09:49 Temperature 98.2 F Pulse Rate [Right Pulse Oximeter] 88 Respiratory Rate 18 Blood Pressure [Ri ght Upper Arm] 136/68 Pulse Oximetry 96 Oxygen Delivery Me thod Room Air Documenting provider has reviewed patient's vital signs: yes Course Vital Signs Vital signs: Initial Vital Signs Temperature 98.2 F 02/11/24 09:49 Temperature Source Temporal Artery Scan 02/11/24 09:49 Pulse Rate 88 02/11/24 09:49 Pulse Rhythm Regular 02/11/24 09:49 Pulse Strength 3+ Normal 02/11/24 09:49 Respiratory Rate 18 02/11/24 09:49 Blood Pressure 136/68 02/11/24 09:49 Blood Pressure Mean 90 02/11/24 09:49 Blood Pressure Position Sitting 02/11/24 09:49 Pulse Oximetry 96 02/11/24 09:49 Oxygen Delivery Method Room Air 02/11/24 09:49 Vital Signs Temperature 98.2 F 02/11/24 09:49 Pulse Rate 88 02/11/24 09:49 Respiratory Rate 18 02/11/24 09:49 Blood Pressure 136/68 02/11/24 09:49 Pulse Oximetry 96 02/11/24 09:49 Oxygen Delivery Method Room Air 02/11/24 09:49 Temperature 98.2 F 02/11/24 09:49 Pulse Rate 88 02/11/24 09:49 Respiratory Rate 18 02/11/24 09:49 Blood Pressure 136/68 02/11/24 09:49 Pulse Oximetry 96 02/11/24 09:49 Oxygen Delivery Method Room Air 02/11/24 09:49 Medical Decision Making MDM Narrative Medical decision making narrative: Discussed with nursing to irrigate and watch for clearing. I do not suspect this represents anything more than intravesicular trauma. Will look for infection as well. Urinalysis reassuring for infection and fresh urine appears no longer to have any gross blood in it in leg bag collection. See patient discharge plan for further discussion I appreciate your concern today. I am reassured that the bleeding has cleared. There is no evidence of infection. Sometimes with a catheter in place you can get temporary bleeding. Be seen if this continues to recur or seems to be bleeding more heavily or of course if things get occluded. Medical Records Medical records reviewed: Yes I reviewed the patient's medical records Lab Data Lab results reviewed: Yes I reviewed the patient's lab results Labs: Lab Results 02/11/24 Range/Units 11:17 Urine Color Yellow (Yellow) Urine Appearance Clear (Clear) Urine pH 7.5 (5.0-8.5) Ur Specific [place] 1.015 (1.000-1.030) Urine Protein Negative (Negative) Urine Glucose (UA) Negative (Negative) Urine Ketones Negative (Negative) Urine Blood 2+ A (Negative) Urine Nitrite Negative (Negative) Urine Bilirubin Negative (Negative) Urine Urobilinogen 0.2 (0.2-1.0) Ur Leukocyte Esterase Trace A (Negative) Urine RBC 0-2 (0-2) Urine WBC 0-2 (0-5) Ur Squamous Epith Cells None (None-Few) Urine Bacteria None (None) Discharge Plan Discharge Clinical Impression: Hematuria Patient Disposition: Home w/ Parent or Adult Condition: Improved Additional Instructions: I appreciate your concern today. I am reassured that the bleeding has cleared. There is no evidence of infection. Sometimes with a catheter in place you can get temporary bleeding. Be seen if this continues to recur or seems to be b leeding more heavily or of course if things get occluded. Prescriptions: No Action Spiriva Respimat 2.5 mcg/actuation mist 2 puff inhalation QDAY albuterol sulfate 90 mcg/actuation HFA aerosol inhaler 2 puff inhalation Q6H PRN ibuprofen [Advil] 200 mg tablet 200 mg PO Q6H PRN tamsulosin 0.4 mg capsule 0.4 mg PO QDAY senna 8.6 mg capsule 8.6 mg PO QDAY PRN albuterol sulfate 2.5 mg /3 mL (0.083 %) solution for nebulization 2.5 mg inhalation Q6H aspirin 81 mg tablet,delayed release (DR/EC) 81 mg PO QDAY fluticasone propion-salmeterol [Wixela Inhub] inhalation Follow Up/Referrals: Cain Garcia MD [Primary Care Provider] - Stand Alone Forms: [employer] Info Instructions
[2024-02-11 11:27] LABS: Appearance Urine Clear (Clear); Bilirubin Urine Negative (Negative); Blood Urine 2+ (Negative); Color Urine Yellow (Yellow); Glucose Urine Negative (Negative); Ketones Urine Negative (Negative); Leukocyte Esterase Urine Trace (Negative); Nitrite Urine Negative (Negative); Protein Urine Negative (Negative); Specific Gravity Urine 1.015 (1.000-1.030); Urobilinogen Urine 0.2 (0.2-1.0); pH Urine 7.5 (5.0-8.5)
[2024-02-11 11:44] LABS: RBC Urine 0-2 (0-2); WBC Urine 0-2 (0-5)
== END 2024-02-11 12:08 | disposition home or self-care (01) ==
PROVIDERS: Emergency Provider Family Medicine; PCP Family Medicine
DX: R31.9 Hematuria, unspecified (principal)
CPT/HCPCS: 81001; 87086; 99283; 99284